=== PATIENT | female | born 1985 | race Caucasian/White ===

== ENCOUNTER 2016-09-21 08:04 | Emergency (ER) | payer OTHER ==
[2016-09-21 08:10] VITALS: BP 111/69; PULSE 75; TEMP 98.1; BMI 23.5
--- NOTE | 2016-09-21 08:33 | PDOC ---
History of Present Illness - General Chief Complaint: Cold Symptoms Stated Complaint: COLD, CHEST PAIN Time Seen by Provider: 09/21/16 08:29 History Source: Patient Exam Limitations: No Limitations - History of Present Illness Initial Comments: 09/21/16 08:29 CC 4 days of cough and nasal congesion; no fever Timing/Duration: reports: getting worse Severity: reports: mild Possible Cause: Yes: illness exposure Associated Symptoms: reports: cough, nasal congestion, nasal drainage Past History - Past Medical History Allergies/Adverse Reactions: Allergies Allergy/AdvReac Type Severity Reaction Status Date / Time No Known Drug Allergies Allergy Verified 09/21/16 08:07 Home Medications: Ambulatory Orders Benzonatate [Tessalon] 100 mg PO TID PRN #10 capsule 09/18/13 No Home Medications 0 dose .ROUTE UTDICT 09/18/13 Anemia: No Asthma: No Cancer: No Cardiac Disorders: No CVA: No COPD: No CHF: No Dementia: No Diabetes: No GI Disorders: No Disorders: No HTN: No Hypercholesterolemia: No Liver Disease: No Seizures: No Thyroid Disease: No - Surgical History Neurologic Surgery: No - Reproductive History (#): 4 Para: 3 Ectopic : Yes - Immunization History Immunization Up to Date: No (flu) - Psycho/Social/Smoking Cessation Hx Anxiety: No Suicidal Ideation: No Smoking Status: No Smoking History: Never smoked Have you smoked in the past 12 months: No Number of Cigarettes Smoked Daily: 0 Information on smoking cessation initiated: No Hx Alcohol Use: No Drug/Substance Use Hx: No Substance Use Type: None Hx Substance Use Treatment: No Review of Systems - Review of Systems Constitutional: No: Chills, Fever, Malaise HEENTM: Yes: Nose Pain, Nose Congestion Respiratory: No: Symptoms reported, Cough Cardiac (ROS): No: Symptoms Reported ABD/GI: No: Symptoms Reported, Constipated : No: Symptoms Reported, Dysuria, Hematuria Musculoskeletal: No: Symptoms Reported *Physical Exam - Vital Signs Last Vital Signs Temp Pulse Resp BP Pulse Ox 98.1 F 75 20 111/69 98 09/21/16 08:07 09/21/16 08:07 09/21/16 08:07 09/21/16 08:07 09/21/16 08:07 - Physical Exam General Appearance: Yes: Appropriately Dressed. No: Apparent Distress HEENT: positive: Tonsillar Exudate, Nasal Congestion, Rhinorrhea. negative: TMs Normal, Pharynx Normal, Tonsillar Erythema Neck: positive: Supple. negative: Tender, Rigid, Lymphadenopathy (R), Lymphadenopathy (L) Respiratory/Chest: negative: Chest Tender, Lungs Clear Medical Decision Making - Medical Decision Making 09/21/16 08:31 sinus infections, no fever *DC/Admit/Observation/Transfer Diagnosis at time of Disposition: Acute sinusitis Qualifiers: Sinusitis location: frontal Recurrence: non-recurrent Qualified Code(s): J01.10 - Acute frontal sinusitis, unspecified - Discharge Dispostion Disposition: HOME Condition at time of disposition: Stable Admit: No - Patient Instructions Additional Instructions: lots of fluids; return for increased symptoms; use nasal spray - Post Discharge Activity Work/School Note: Back to Work
[2016-09-21] MEDS ORDERED: IBUPROFEN 400 MG TABLET (FP) PO ONE (08:34)
== END 2016-09-21 08:44 | disposition home or self-care (01) ==
LOC: JERFT 08:04
DX: J01.10 Acute frontal sinusitis, unspecified (principal)
CPT/HCPCS: 99281-25

== ENCOUNTER 2018-01-29 07:47 | Emergency (ER) | payer OTHER ==
[2018-01-29 08:03] VITALS: BP 107/72; PULSE 78; TEMP 98.7; BMI 35.8
--- NOTE | 2018-01-29 08:25 | PDOC ---
History of Present Illness - General Chief Complaint: Pain Stated Complaint: SHOULDER PAIN Time Seen by Provider: 01/29/18 08:10 History Source: Patient Exam Limitations: No Limitations - History of Present Illness Initial Comments: 01/29/18 10:08 Patient states was at school feel day with daughter 3 days ago doing multiple activities including sac racing, and had a gradual onset of left shoulder pain. States has progressively worsened where now had difficulty sleeping last night secondary to stiffness and tenderness to upper shoulder and upper neck area. Denies numbness or tingling to hands or feet, no fevers, no palpitations chest pain or other. Has taken only Tylenol for pain relief. Occurred: reports: last week Severity: reports: mild, moderate Pain Location: reports: back Method of Injury: Yes: unknown Modifying Factors: improves with: None Loss of Consciousness: no loss of consciousness Associated Symptoms (Fall): denies symptoms Past History - Travel Traveled outside of the country in the last 30 days: No Close contact w/someone who was outside of country & ill: No - Past Medical History Allergies/Adverse Reactions: Allergies Allergy/AdvReac Type Severity Reaction Status Date / Time No Known Drug Allergies AdvReac Verified 01/29/18 12:13 NSAIDS AdvReac Uncoded 01/29/18 12:13 Home Medications: Ambulatory Orders Cyclobenzaprine HCl 10 mg PO Q8H PRN #14 tablet 01/29/18 Anemia: No Asthma: No Cancer: No Cardiac Disorders: No CVA: Yes (STROKE-2017, NO RESIDUAL) COPD: No CHF: No Dementia: No Diabetes: No GI Disorders: No Disorders: No HTN: No Hypercholesterolemia: No Liver Disease: No Seizures: No Thyroid Disease: No - Surgical History Neurologic Surgery: No - Reproductive History (#): 4 Para: 3 Ectopic : Yes - Immunization History Immunization Up to Date: No (flu) - Suicide/Smoking/Psychosocial Hx Smoking Status: No Smoking History: Never smoked Have you smoked in the past 12 months: No Number of Cigarettes Smoked Daily: 0 Hx Alcohol Use: No Drug/Substance Use Hx: No Substance Use Type: None Hx Substance Use Treatment: No Review of Systems - Review of Systems Able to Perform ROS?: Yes Is the patient limited [place]an proficient: Yes Constitutional: Yes: Symptoms Reported HEENTM: Yes: See HPI. No: Symptoms Reported Respiratory: Yes: See HPI. No: Symptoms reported, Cough Cardiac (ROS): No: Symptoms Reported ABD/GI: No: Symptoms Reported Musculoskeletal: Yes: Symptoms Reported, See HPI, Joint Pain, Muscle Pain, Muscle Weakness Integumentary: Yes: See HPI. No: Symptoms Reported, Bruising Neurological: No: Symptoms reported All Other Systems: Reviewed and Negative *Physical Exam - Vital Signs Last Vital Signs Temp Pulse Resp BP Pulse Ox 98.7 F 78 19 107/72 100 01/29/18 07:56 01/29/18 07:56 01/29/18 07:56 01/29/18 07:56 01/29/18 07:56 - Physical Exam General Appearance: Yes: Nourished, Appropriately Dressed, Apparent Distress, Mild Distress HEENT: positive: ANURADHA, Normal ENT Inspection, TMs Normal, Pharynx Normal Neck: positive: Supple Respiratory/Chest: positive: Lungs Clear, Normal Breath Sounds Gastrointestinal/Abdominal: positive: Soft. negative: Tender Musculoskeletal: positive: Normal Inspection, Muscle Spasm (palpable spasm noted to the paravertebral spinous muscles of left neck and cervical spine. Has no true neck tenderness, and range of motion is intact although movement right reproduces pain to her left shoulder area. Spasm is recreated with pressure points at the trapezius.). negative: Vertebral Tenderness Extremity: positive: Normal Capillary Refill, Normal Inspection. 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 *DC/Admit/Observation/Transfer Diagnosis at time of Disposition: Left shoulder strain Qualifiers: Encounter type: initial encounter Qualified Code(s): S46.912A - Strain of unspecified muscle, fascia and tendon at shoulder and upper arm level, left arm , initial encounter - Discharge Dispostion Disposition: HOME Condition at time of disposition: Stable Decision to Admit order: No - Prescriptions Prescriptions: Cyclobenzaprine HCl 10 mg PO Q8H PRN #14 tablet PRN Reason: spasm - Referrals Referrals: Christiano Sanchez [Primary Care Provider] - - Patient Instructions Printed Discharge Instructions: DI for Muscle Strain Additional Instructions: Rest, no heavy lifting or exercise until pain is resolved Hot soaks to neck and low back as often as possible/hot showers or Jacuzzis No massage or therapy until spasm is gone Continue Acetaminophen 500 mg tablet, 1 tablet every 8 hours for the next 3 days then as needed for pain and swelling Cyclobenzaprine 1-10mg every 8 hours as needed for spasm If not significant improvement within 24 hours with medication and rest regime, followup with private physician for change in medications and /or therapy. - Post Discharge Activity
== END 2018-01-29 08:53 | disposition home or self-care (01) ==
LOC: JERFT 07:47 → JER 07:47 → JERFT 08:53
DX: S46.812A Strain of other muscles, fascia and tendons at shoulder and upper arm level, left arm, initial encounter (principal); X50.9XXA Other and unspecified overexertion or strenuous movements or postures, initial encounter; Y93.6A Activity, physical games generally associated with school recess, summer camp and children; Y92.218 Other school as the place of occurrence of the external cause; Y99.8 Other external cause status; Z86.73 Personal history of transient ischemic attack (TIA), and cerebral infarction without residual deficits
CPT/HCPCS: 99281-25

== ENCOUNTER 2018-02-01 10:45 | Emergency (ER) | payer OTHER ==
[2018-02-01] MEDS ORDERED: SODIUM CHLORIDE 1,000 ML IV STA (11:21)
[2018-02-01 11:27] VITALS: TEMP 99; BMI 36.3
--- NOTE | 2018-02-01 11:33 | PDOC ---
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 Symptoms began as pt was sitting at the bus stop filling out a job application. Pt reports afterwards, she began to have palpitations, and felt like she could not catch her breath because she thought "something bad was going to happen" to her again. She then dialed 911 and began to feel tingling in her fingers and toes. Denies any chest pain or lower extremity edema. Patient reports taking her Eliquis this morning. Patient states she was recently in the ED on 01/29/18 for left shoulder pain, for which she was prescribed Flexeril. Patient states she last took Flexeril last night and motrin this morning with moderate relief. She states she felt "off" this morning, but otherwise had no symptoms. Pt denies abdominal pain, vomiting, diarrhea, or constipation. Denies focal weakness or numbness. Denies speech problems or visual symptoms. She denies any recent fever, chills, cough, headache, dizziness, or lightheadedness. Patient reports her symptoms are different from her previous CVA, as she does not have any changes in speech or vision. She denies any recent travel or sick contacts. Allergies: NKDA Past Surgical History: Brain clot removal Social History: Non smoker. No ETOH or recreational drug use, PCP: Dr. Sanchez Past History - Past Medical History Allergies/Adverse Reactions: Allergies Allergy/AdvReac Type Severity Reaction Status Date / Time No Known Drug Allergies AdvReac Verified 01/29/18 12:13 NSAIDS AdvReac Uncoded 01/29/18 12:13 Home Medications: Ambulatory Orders Cyclobenzaprine HCl 10 mg PO Q8H PRN #14 tablet 01/29/18 Apixaban [Eliquis] 5 mg PO BID 02/01/18 Anemia: No Asthma: No Cancer: No Cardiac Disorders: No CVA: Yes (06/2017) COPD: No CHF: No Dementia: No Diabetes: No GI Disorders: No Disorders: No HTN: No Hypercholesterolemia: No Liver Disease: No Seizures: No Thyroid Disease: No - Surgical History Neurologic Surgery: No - Reproductive History (#): 4 Para: 3 Ectopic : Yes - Immunization History Immunization Up to Date: No (flu) - Suicide/Smoking/Psychosocial Hx Smoking Status: No Smoking History: Never smoked Have you smoked in the past 12 months: No Number of Cigarettes Smoked Daily: 0 Information on smoking cessation initiated: No Hx Alcohol Use: No Drug/Substance Use Hx: No Substance Use Type: None Hx Substance Use Treatment: No Review of Systems - Review of Systems Comments:: 02/01/18 12:12 GENERAL/CONSTITUTIONAL: +heat flash. No fever or chills. No weakness. HEAD, EYES, EARS, NOSE AND THROAT: No change in vision. No ear pain or discharge. No sore throat. GASTROINTESTINAL: +Nausea. No vomiting, diarrhea or constipation. GENITOURINARY: No dysuria, frequency, or change in urination. CARDIOVASCULAR: +Shortness of breath, palpitations. No chest pain. RESPIRATORY: No cough, wheezing, or hemoptysis. MUSCULOSKELETAL: No joint or muscle swelling or pain. No neck or back pain. SKIN: No rash NEUROLOGIC: No headache, vertigo, loss of consciousness, or change in strength/ sensation. ENDOCRINE: No increased thirst. No abnormal weight change. HEMATOLOGIC/LYMPHATIC: No anemia, easy bleeding, or history of blood clots. ALLERGIC/IMMUNOLOGIC: No hives or skin allergy *Physical Exam - Vital Signs Last Vital Signs Temp Pulse Resp BP Pulse Ox 99 F 104 H 20 116/76 100 02/01/18 10:57 02/01/18 10:57 02/01/18 10:57 02/01/18 10:57 02/01/18 10:57 - Physical Exam Comments: 02/01/18 12:12 GENERAL: Awake, alert, and fully oriented, in no acute distress HEAD: No signs of trauma EYES: PERRLA, EOMI, sclera anicteric, conjunctiva clear ENT: Auricles normal inspection, hearing grossly normal, nares patent, oropharynx clear without exudates. Moist mucosa NECK: Normal ROM, supple, no lymphadenopathy, JVD, or masses LUNGS: Breath sounds equal, clear to auscultation bilaterally. No wheezes, and no crackles HEART: Regular rate and rhythm, normal S1 and S2, no murmurs, rubs or gallops ABDOMEN: Soft, nontender, normoactive bowel sounds. No guarding, no rebound. No masses EXTREMITIES: Normal range of motion, no edema. No clubbing or cyanosis. No cords, erythema, or tenderness NEUROLOGICAL: Normal speech, cranial nerves intact, negative pronator drift, 5/ 5 strength in all 4 extremities, normal sensation to light touch in all 4 extremities, normal cerebellar exam, normal gait, normal reflexes and tone SKIN: Warm, Dry, normal turgor, no rashes or lesions noted. Heart Score/ECG Review #1 02/01/18 12:13 Twelve-lead EKG was performed and reviewed by me. Normal sinus rhythm, rate 96. Normal axis and intervals. No ST elevations. Isolated T-wave inversion in lead 3. No significant change compared to EKG from July 2012 ED Treatment Course - LABORATORY CBC & Chemistry Diagram: 02/01/18 11:45 02/01/18 11:45 Medical Decision Making - Medical Decision Making 02/01/18 11:35 32-year-old female with a history of CVA in June 2017 with no residual symptoms now on xarelto for pAF presents to the emergency department with sensation of heat coming over her body, followed by nausea, palpitations and feeling that she can not catch her breath. No LOC. Initial vitals with tachycardia, on my exam, HR 94. Remainder of vitals wnl. Exam wnl, pt is neuro intact. EKG non ischemic. Story consistent with pre-syncopal episode. Pt has been taking flexeril for the past 2 days for L muscle pain (seen here), it is possible this is a medication side effect. Pt reports she feels better now, but admits to being anxious due to her previous stroke. 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 I answered all of the patient's questions. The patient was satisfied with the care received and felt comfortable with the discharge plan and treatment plan. The patient will call their primary care physician within 24 hours to arrange follow-up and will return to the Emergency Department with any new, persistent or worsening symptoms. *DC/Admit/Observation/Transfer Diagnosis at time of Disposition: Pre-syncope, Nausea, Palpitations - Discharge Dispostion Disposition: HOME Condition at time of disposition: Stable Decision to Admit order: No - Referrals Referrals: Christiano Sanchez [Primary Care Provider] - - Patient Instructions Printed Discharge Instructions: DI for Palpitations Additional Instructions: Follow-up with your primary care doctor tomorrow as scheduled. Do not take the muscle relaxer as it can have side effects that may have contributed to your symptoms today. Take tylenol as needed for pain. Return to the emergency department if you have any new, worsening or concerning symptoms. - Post Discharge Activity - Attestations Physician Attestion: 02/01/18 16:35 I, Dr. Jero Mckinley MD, attest that this document has been prepared under my direction and personally reviewed by me in its entirety. I further attest, that it accurately reflects all work, treatment, procedures and medical decision -making performed by me.
[2018-02-01 12:04] LABS: BASO % 0.6 % (0-2.0); EOS % 0.7 % (0-4.5); HEMATOCRIT 35.9 % (32.4-45.2); LYMPH % 33.5 % (8-40); MCHC 33.5 g/dl (32.0-36.0); MEAN CELL VOLUME 92.7 fl (80-96); MEAN PLT VOLUME 8.8 fl (7.5-11.1); MONO % 9.5 % (3.8-10.2); NEUT % 55.7 % (42.8-82.8); PLATELET COUNT 246 K/MM3 (134-434); RBC 3.87 M/mm3 (3.60-5.2); RDW 12.6 % (11.6-15.6)
[2018-02-01 12:27] LABS: ALBUMIN 3.7 g/dl (3.4-5.0); ANION GAP 6 (8-16); BILIRUBIN,TOTAL 0.3 mg/dL (0.2-1.0); BLOOD UREA NITROGEN 12 mg/dL (7-18); CALCIUM 8.7 mg/dL (8.5-10.1); CHLORIDE 103 mmol/L (98-107); CO2 28 mmol/L (21-32); CREATININE 0.9 mg/dL (0.55-1.02); GLUCOSE,RANDOM 82 mg/dL (74-106); MAGNESIUM 2.1 mg/dL (1.8-2.4); POTASSIUM 4.1 mmol/L (3.5-5.1); SGOT/AST 49 U/L (15-37); SODIUM 137 mmol/L (136-145); TOT PROT 8.1 g/dl (6.4-8.2)
[2018-02-01 12:35] LABS: ALK PHOS 108 U/L (45-117); SGPT/ALT 80 U/L (12-78)
[2018-02-01 15:50] VITALS: BP 113/67; PULSE 87
--- NOTE | 2018-02-02 13:29 | EKG ---
Test Reason : Blood Pressure : / mmHG Vent. Rate : 096 BPM Atrial Rate : 096 BPM P-R Int : 160 ms QRS Dur : 080 ms QT Int : 358 ms P-R-T Axes : 051 021 026 degrees QTc Int : 452 ms NORMAL SINUS RHYTHM NORMAL ECG WHEN COMPARED WITH ECG OF 13-JUL-2012 11:30, NONSPECIFIC T WAVE ABNORMALITY NOW EVIDENT IN ANTERIOR LEADS Confirmed by MAGUI MARQUES MD ([id number]) on 02/02/2018 1:29:24 PM Referred By: Confirmed By:MAGUI MARQUES MD
== END 2018-02-01 16:46 | disposition home or self-care (01) ==
LOC: JER 10:45
PROC: 3E0337Z Introduction of Electrolytic and Water Balance Substance into Peripheral Vein, Percutaneous Approach (ICD-10-PCS; principal; 2018-02-01)
DX: R55 Syncope and collapse (principal); R00.2 Palpitations; I48.0 Paroxysmal atrial fibrillation; Z79.01 Long term (current) use of anticoagulants
CPT/HCPCS: 36415; 71045-TC-FY; 80053; 83735; 84443; 84484; 84703; 85025; 93005; 93010; 99284-25; J7030

== ENCOUNTER 2018-02-02 10:53 | Emergency (ER) | payer OTHER ==
[2018-02-02 11:00] VITALS: BMI 36.0
[2018-02-02 12:30] VITALS: BP 116/76; PULSE 78; TEMP 98.2
[2018-02-02 12:33] LABS: BASO % 0.3 % (0-2.0); EOS % 0.5 % (0-4.5); HEMATOCRIT 36.3 % (32.4-45.2); HEMOGLOBIN 12.1 GM/dL (10.7-15.3); LYMPH % 24.3 % (8-40); MCHC 33.5 g/dl (32.0-36.0); MEAN CELL VOLUME 92.7 fl (80-96); MEAN PLT VOLUME 8.7 fl (7.5-11.1); MONO % 7.8 % (3.8-10.2); NEUT % 67.1 % (42.8-82.8); PLATELET COUNT 239 K/MM3 (134-434); RBC 3.91 M/mm3 (3.60-5.2); RDW 12.4 % (11.6-15.6); WHITE BLOOD COUNT 5.4 K/mm3 (4.0-10.0)
[2018-02-02 13:06] LABS: ALBUMIN 3.7 g/dl (3.4-5.0); ANION GAP 9 (8-16); BILIRUBIN,TOTAL 0.3 mg/dL (0.2-1.0); BLOOD UREA NITROGEN 10 mg/dL (7-18); CALCIUM 9.3 mg/dL (8.5-10.1); CHLORIDE 103 mmol/L (98-107); CO2 27 mmol/L (21-32); CREATININE 0.8 mg/dL (0.55-1.02); GLUCOSE,RANDOM 68 mg/dL (74-106); POTASSIUM 4.2 mmol/L (3.5-5.1); SGOT/AST 43 U/L (15-37); SGPT/ALT 77 U/L (12-78); SODIUM 139 mmol/L (136-145)
[2018-02-02 13:09] LABS: ALK PHOS 106 U/L (45-117)
--- NOTE | 2018-02-02 13:28 | PDOC ---
History of Present Illness - General Chief Complaint: Palpitations Stated Complaint: REVISIT/ PALPITATIONS Time Seen by Provider: 02/02/18 11:22 History Source: Patient Exam Limitations: No Limitations - History of Present Illness Initial Comments: 02/02/18 11:22 32-year-old female presents to ED with sudden onset of palpitations accompanied with mild shortness of breath that lasted about 2 minutes. Patient was taking about all of thing she had today when symptoms began and denies any exertion prior to the onset. Patient denies history of anxiety, drug use, alcohol use but does state recent stressors starting a new job tomorrow. Patient was seen here yesterday for the same and had a workup which she states was normal. Patient is currently asymptomatic upon arrival but feels generally fatigued. Presenting Symptoms: Other Timing/Duration: reports: resolved prior to arrival Severity/Quality: reports: mild Activities at Onset: reports: none Nitro Today/Relief: Yes: no nitro taken today Aspirin Received prior to arrival (Core Measure): Yes: no aspirin today Associated Symptoms: Yes: Palpitations Past History - Travel Traveled outside of the country in the last 30 days: No - Past Medical History Allergies/Adverse Reactions: Allergies Allergy/AdvReac Type Severity Reaction Status Date / Time No Known Drug Allergies AdvReac Verified 01/29/18 12:13 Home Medications: Ambulatory Orders Cyclobenzaprine HCl 10 mg PO Q8H PRN #14 tablet 01/29/18 Apixaban [Eliquis] 5 mg PO BID 02/01/18 Anemia: No Asthma: No Cancer: No Cardiac Disorders: No CVA: Yes (06/2017) COPD: No CHF: No DVT: No Dementia: No Diabetes: No GI Disorders: No Disorders: No HTN: No Hypercholesterolemia: No Liver Disease: No Seizures: No Thyroid Disease: No - Surgical History Neurologic Surgery: No - Reproductive History (#): 4 Para: 3 Ectopic : Yes - Immunization History Immunization Up to Date: No (flu) - Suicide/Smoking/Psychosocial Hx Smoking Status: No Smoking History: Never smoked Have you smoked in the past 12 months: No Number of Cigarettes Smoked Daily: 0 Information on smoking cessation initiated: No Hx Alcohol Use: No Drug/Substance Use Hx: No Substance Use Type: None Hx Substance Use Treatment: No Patient Lives Alone: No Cardiac Specific PMH - Complaint Specific PMHX Pacemaker: No Review of Systems - Review of Systems Able to Perform ROS?: No Constitutional: Yes: Loss of Appetite, Malaise HEENTM: No: Symptoms Reported Respiratory: Yes: Shortness of Breath Cardiac (ROS): Yes: Palpitations ABD/GI: No: Symptoms Reported : No: Symptoms Reported Musculoskeletal: No: Symptoms Reported Integumentary: No: Symptoms Reported Neurological: No: Symptoms reported Hematologic/Lymphatic: No: Symptoms Reported *Physical Exam - Vital Signs Last Vital Signs Temp Pulse Resp BP Pulse Ox 98.2 F 78 18 116/76 100 02/02/18 12:28 02/02/18 12:28 02/02/18 12:28 02/02/18 12:28 02/02/18 12:28 - Physical Exam General Appearance: Yes: Nourished, Appropriately Dressed. No: Apparent Distress HEENT: positive: EOMI, ANURADHA, TMs Normal, Pharynx Normal (dry). negative: Pale Conjunctivae Neck: positive: Normal Thyroid, Supple Respiratory/Chest: positive: Lungs Clear, Normal Breath Sounds. negative: Respiratory Distress, Accessory Muscle Use Cardiovascular: positive: Regular Rhythm, Regular Rate. negative: Murmur Gastrointestinal/Abdominal: positive: Soft. negative: Tenderness Extremity: positive: Normal Capillary Refill. negative: Pedal Edema Integumentary: positive: Normal Color, Warm, Moist Neurologic: positive: Normal Mood/Affect, Motor Strength 5/5 (ambulatory) Heart Score/ECG Review - History History: Slightly suspicious - Electrocardiogram EKG: Normal - Age Age: </= 45 - Risk Factors Based on the list above the patient has:: No risk factors known - Troponin Troponin: </= normal limit - Score Heart Score - Total: 0 - ECG Intrepretation Rhythm: Regular Rhythm (rate 81. nsr. intervals reg. no st depression or elevation) ED Treatment Course - LABORATORY CBC & Chemistry Diagram: 02/02/18 12:20 02/02/18 12:20 - ADDITIONAL ORDERS Additional order review: Laboratory Results 02/02/18 12:20 Sodium 139 Potassium 4.2 Chloride 103 Carbon Dioxide 27 Anion Gap 9 BUN 10 Creatinine 0.8 Creat Clearance w eGFR > 60 Random Glucose 68 L Calcium 9.3 Total Bilirubin 0.3 AST 43 H ALT 77 Alkaline Phosphatase 106 Creatine Kinase 131 Troponin I < 0.02 Total Protein 8.0 Albumin 3.7 02/02/18 12:20 RBC 3.91 MCV 92.7 MCHC 33.5 RDW 12.4 MPV 8.7 Neutrophils % 67.1 D Lymphocytes % 24.3 D Monocytes % 7.8 Eosinophils % 0.5 Basophils % 0.3 Medical Decision Making - Medical Decision Making 02/02/18 11:28 She here for episodic palpitations shortness of breath after feeling anxious. Patient states symptoms resolved within minutes with no other complaints physically. Patient came to the ER because she did not know what to do although she was seen here yesterday for similar complaints. Patient's EKG completed in triage. Patient was ordered for CBC and comp. 02/02/18 13:10 Patient remains asymptomatic. Patient with borderline low glucose. Patient given lunch tray. 02/02/18 13:31 Laboratory Tests 02/02/18 02/02/18 12:20 12:20 WBC 5.4 D Hgb 12.1 Hct 36.3 Plt Count 239 Neutrophils % 67.1 D Sodium 139 Potassium 4.2 Chloride 103 Carbon Dioxide 27 Anion Gap 9 BUN 10 Creatinine 0.8 Creat Clearance w eGFR > 60 Random Glucose 68 L Calcium 9.3 Total Bilirubin 0.3 AST 43 H ALT 77 Creatine Kinase 131 Troponin I < 0.02 *DC/Admit/Observation/Transfer Diagnosis at time of Disposition: Palpitations, Anxiety - Discharge Dispostion Disposition: HOME Condition at time of disposition: Good - Referrals Referrals: Christiano Sanchez [Primary Care Provider] - - Patient Instructions Printed Discharge Instructions: Anxiety and Panic Attacks (Alternative Therapy) , DI for Anxiety -- Adult Additional Instructions: At this time I recommend try relaxation techniques, such as music, yoga and /or breathing in a brown paper bag with slow deep breaths. I also recommended to go in front of the fan and take low deep breaths. - Post Discharge Activity
--- NOTE | 2018-02-02 13:29 | EKG ---
Test Reason : Blood Pressure : / mmHG Vent. Rate : 081 BPM Atrial Rate : 081 BPM P-R Int : 148 ms QRS Dur : 088 ms QT Int : 368 ms P-R-T Axes : 057 015 022 degrees QTc Int : 427 ms NORMAL SINUS RHYTHM CANNOT RULE OUT ANTERIOR INFARCT , AGE UNDETERMINED ABNORMAL ECG WHEN COMPARED WITH ECG OF 01-FEB-2018 10:52, NO SIGNIFICANT CHANGE WAS FOUND Confirmed by MAGUI MARQUES MD ([id number]) on 02/02/2018 1:28:51 PM Referred By: Confirmed By:MAGUI MARQUES MD
== END 2018-02-02 13:59 | disposition home or self-care (01) ==
LOC: JER 10:53
DX: F41.9 Anxiety disorder, unspecified (principal); R00.2 Palpitations; Z86.73 Personal history of transient ischemic attack (TIA), and cerebral infarction without residual deficits; I48.0 Paroxysmal atrial fibrillation; Z79.01 Long term (current) use of anticoagulants
CPT/HCPCS: 36415; 80053; 82550; 84484; 85025; 93005; 93010; 99284-25

== ENCOUNTER 2018-05-21 06:49 | Emergency (ER) | payer OTHER ==
[2018-05-21 06:58] VITALS: BP 115/70; PULSE 88; TEMP 98.5; BMI 39.4
--- NOTE | 2018-05-21 07:10 | PDOC ---
History of Present Illness - General Chief Complaint: Sore Throat Stated Complaint: THROAT PAIN Time Seen by Provider: 05/21/18 07:09 Past History - Past Medical History Allergies/Adverse Reactions: Allergies Allergy/AdvReac Type Severity Reaction Status Date / Time No Known Drug Allergies AdvReac Verified 05/21/18 06:56 Home Medications: Ambulatory Orders Cyclobenzaprine HCl 10 mg PO Q8H PRN #14 tablet 01/29/18 Apixaban [Eliquis] 5 mg PO BID 02/01/18 Anemia: No Asthma: No Cancer: No Cardiac Disorders: No CVA: Yes (06/2017) COPD: No CHF: No DVT: No Dementia: No Diabetes: No GI Disorders: No Disorders: No HTN: No Hypercholesterolemia: No Liver Disease: No Seizures: No Thyroid Disease: No - Surgical History Neurologic Surgery: No - Reproductive History (#): 4 Para: 3 Ectopic : Yes - Immunization History Immunization Up to Date: No (flu) - Suicide/Smoking/Psychosocial Hx Smoking Status: No Smoking History: Never smoked Have you smoked in the past 12 months: No Number of Cigarettes Smoked Daily: 0 Information on smoking cessation initiated: No Hx Alcohol Use: No Drug/Substance Use Hx: No Substance Use Type: None Hx Substance Use Treatment: No *Physical Exam - Vital Signs Last Vital Signs Temp Pulse Resp BP Pulse Ox 98.5 F 88 20 115/70 99 05/21/18 06:56 05/21/18 06:56 05/21/18 06:56 05/21/18 06:56 05/21/18 06:56 *DC/Admit/Observation/Transfer - Referrals Referrals: Christiano Sanchez [Primary Care Provider] - - Patient Instructions - Post Discharge Activity
--- NOTE | 2018-05-21 07:39 | PDOC ---
History of Present Illness - General Chief Complaint: Sore Throat Stated Complaint: THROAT PAIN Time Seen by Provider: 05/21/18 07:09 - History of Present Illness Initial Comments: 32 year old female with PMH of CVA ( 1 year prior currently on Eliquis) presenting with right sided neck pain radiating to her jaw along with difficulty / pain with swallowing for the past two days. Denies fevers, chills, nausea, vomiting, diarrhea, sick contacts, recent travel, or other symptoms. She has not tried any OTC pain relievers or anti-inflammatory medications. 05/21/18 07:29 Past History - Past Medical History Allergies/Adverse Reactions: Allergies Allergy/AdvReac Type Severity Reaction Status Date / Time No Known Drug Allergies AdvReac Verified 05/21/18 06:56 Home Medications: Ambulatory Orders Cyclobenzaprine HCl 10 mg PO Q8H PRN #14 tablet 01/29/18 Apixaban [Eliquis] 5 mg PO BID 02/01/18 Amoxicillin - [Amoxicillin 500mg Capsule -] 1,000 mg PO DAILY 10 Days #20 capsule 05/21/18 Anemia: No Asthma: No Cancer: No Cardiac Disorders: No CVA: Yes (06/2017) COPD: No CHF: No DVT: No Dementia: No Diabetes: No GI Disorders: No Disorders: No HTN: No Hypercholesterolemia: No Liver Disease: No Seizures: No Thyroid Disease: No - Surgical History Neurologic Surgery: No - Reproductive History (#): 4 Para: 3 Ectopic : Yes - Immunization History Immunization Up to Date: No (flu) - Suicide/Smoking/Psychosocial Hx Smoking Status: No Smoking History: Never smoked Have you smoked in the past 12 months: No Number of Cigarettes Smoked Daily: 0 Information on smoking cessation initiated: No Hx Alcohol Use: No Drug/Substance Use Hx: No Substance Use Type: None Hx Substance Use Treatment: No Review of Systems - Review of Systems Constitutional: No: Chills, Diaphoresis, Fever, Loss of Appetite HEENTM: Yes: Nose Congestion, Throat Pain. No: Blurred Vision, Tearing, Hearing Loss Respiratory: No: Cough, Shortness of Breath, Stridor, Wheezing Cardiac (ROS): No: Chest Pain, Edema, Irregular Heart Rate, Syncope ABD/GI: No: Diarrhea, Nausea, Vomiting : No: Dysuria, Discharge, Frequency Integumentary: No: Erythema, Lesions, Lumps, Pallor Neurological: No: Headache, Numbness Psychiatric: No: Anxiety, Depression Endocrine: No: Increased Hunger, Increased Thirst, Increased Urine Hematologic/Lymphatic: Yes: Blood Clots. No: Anemia, Easy Bleeding *Physical Exam - Vital Signs Last Vital Signs Temp Pulse Resp BP Pulse Ox 98.5 F 88 20 115/70 99 05/21/18 06:56 05/21/18 06:56 05/21/18 06:56 05/21/18 06:56 05/21/18 06:56 - Physical Exam General Appearance: Yes: Nourished, Appropriately Dressed. No: Apparent Distress HEENT: positive: EOMI, ANURADHA. negative: Normal ENT Inspection (erythmatoous posterior oropharynx) Neck: positive: Tender (slightly tender right neck without sweling or obvious deformity), Trachea midline, Normal Thyroid, Supple. negative: Rigid Respiratory/Chest: positive: Lungs Clear, Normal Breath Sounds. negative: Chest Tender, Respiratory Distress, Accessory Muscle Use Cardiovascular: positive: Regular Rhythm, Regular Rate Gastrointestinal/Abdominal: positive: Normal Bowel Sounds, Flat, Soft. negative : Tender Musculoskeletal: positive: Normal Inspection. negative: Decreased Range of Motion Extremity: positive: Normal Capillary Refill, Normal Inspection, Normal Range of Motion. negative: Tender Integumentary: positive: Normal Color, Dry, Warm Neurologic: positive: Fully Oriented, Alert, Normal Mood/Affect, Normal Response , Motor Strength 5/5 Medical Decision Making - Medical Decision Making 32 year old female with PMH of CVa presentign with throat soreness and pain for the past 3 days. Erythematous osterio oropharynx, without asymmetric swelling, without exudate, afebrile, and no cough. Very low Centor score of 2 but will send RST and prescribe amoxicillin. Patient deferred Tylenol and cannot take NSAIDs. 05/21/18 07:41 RST negative, sent with antibiotics prophylactically with instructions to fill. Given one dose of dexamethasone 10 MG ands sent home with return precautions and follow up instructions. 05/21/18 08:28 *DC/Admit/Observation/Transfer Diagnosis at time of Disposition: Pharyngitis Qualifiers: Pharyngitis/tonsillitis etiology: unspecified etiology Qualified Code(s): J02.9 - Acute pharyngitis, unspecified - Discharge Dispostion Disposition: HOME Condition at time of disposition: Improved Decision to Admit order: No - Prescriptions Prescriptions: Amoxicillin - [Amoxicillin 500mg Capsule -] 1,000 mg PO DAILY 10 Days #20 capsule - Referrals Referrals: Christiano Sanchez [Primary Care Provider] - - Patient Instructions Printed Discharge Instructions: DI for Pharyngitis/Tonsillopharyngitis -- Adult Additional Instructions: Please take your antibiotics as prescribed, please follow up with your primary care physician within three days. Avoid very cold, very hot, or hard foods. Please return to the ED if you have new or worsening symptoms. - Post Discharge Activity
--- NOTE | 2018-05-21 08:01 | PDOC ---
Attending Attestation - Resident Resident Name: Kandis Dsouza - ED Attending Attestation I have performed the following: I have examined & evaluated the patient, The case was reviewed & discussed with the resident, I agree w/resident's findings & plan, Exceptions are as noted - HPI HPI: 05/21/18 07:56 32-year-old female history of stroke on eliquis, depression, hx of elevated LFTs presents with sore throat mating to right ear. Patient reports 4 days of symptoms. Denies sick contacts or recent travels. Denies fevers or chills. Reports difficulty swallowing but otherwise been completely. Patient has not taken any medications for pain. - Physicial Exam PE: 05/21/18 07:58 GENERAL: Awake, alert, and fully oriented, in no acute distress HEAD: No signs of trauma EYES: PERRLA, EOMI, sclera anicteric, conjunctiva clear ENT: Auricles normal inspection, hearing grossly normal, nares patent, oropharynx clear with bilateral tonsilar erythema and swelling, but no evidence of peritonsillar abscess. No obvious exudates . Moist mucosa NECK: Normal ROM, supple, no lymphadenopathy, JVD, or masses EXTREMITIES: Normal range of motion, no edema. No clubbing or cyanosis. No cords, erythema, or tenderness NEUROLOGICAL: Cranial nerves II through XII grossly intact. Normal speech, normal gait SKIN: Warm, Dry, normal turgor, no rashes or lesions noted. - Medical Decision Making 05/21/18 08:01 Vital Signs Temp Pulse Resp BP Pulse Ox 98.5 F 88 20 115/70 99 05/21/18 06:56 05/21/18 06:56 05/21/18 06:56 05/21/18 06:56 05/21/18 06:56 Impression: Tonsilarpharyngitis. Differential includes viral vs. strep. Rapid strep, pain control and reassess. 05/21/18 08:26 Rapid strep test negative. However, given appearance of throat, will treat empirically with amoxicilin and follow up with PMD. Pt is nontoxic appearing and breathing comfortably.
[2018-05-21] MEDS ORDERED: DEXAMETHASONE 4 MG TABLET (FP) PO ONE (08:27)
== END 2018-05-21 09:11 | disposition home or self-care (01) ==
LOC: JER 06:49
DX: J02.9 Acute pharyngitis, unspecified (principal); Z86.73 Personal history of transient ischemic attack (TIA), and cerebral infarction without residual deficits
CPT/HCPCS: 87070; 87186; 87430; 99282-25

== ENCOUNTER 2018-08-02 10:13 | Emergency (ER) | payer OTHER ==
[2018-08-02 10:43] VITALS: BP 113/66; PULSE 89; BMI 34.4
[2018-08-02] MEDS ORDERED: clonazePAM 0.5 MG TABLET PO ONE (12:01)
--- NOTE | 2018-08-02 12:21 | PDOC ---
History of Present Illness <Laura Romo Nicolas - Last Filed: 08/02/18 13:40> - General History Source: Patient <Marleni Penny - Last Filed: 08/02/18 14:31> - General Chief Complaint: Psychiatric Stated Complaint: PANIC ATTACK Time Seen by Provider: 08/02/18 11:36 Past History <Laura Romo Nicolas - Last Filed: 08/02/18 13:40> - Past Medical History Anemia: No Asthma: No Cancer: No Cardiac Disorders: No CVA: Yes (06/2017) COPD: No CHF: No DVT: No Dementia: No Diabetes: No GI Disorders: No Disorders: No HTN: No Hypercholesterolemia: No Liver Disease: No Seizures: No Thyroid Disease: No - Surgical History Appendectomy: No Cholecystectomy: No Neurologic Surgery: No - Reproductive History (#): 4 Para: 3 Ectopic : Yes - Immunization History Immunization Up to Date: No (flu) - Suicide/Smoking/Psychosocial Hx Smoking Status: No Smoking History: Never smoked Have you smoked in the past 12 months: No Number of Cigarettes Smoked Daily: 0 Information on smoking cessation initiated: No Hx Alcohol Use: No Drug/Substance Use Hx: No Substance Use Type: None Hx Substance Use Treatment: No <Marleni Penny - Last Filed: 08/02/18 14:31> - Past Medical History Allergies/Adverse Reactions: Allergies Allergy/AdvReac Type Severity Reaction Status Date / Time No Known Drug Allergies AdvReac Verified 05/21/18 06:56 Home Medications: Ambulatory Orders Cyclobenzaprine HCl 10 mg PO Q8H PRN #14 tablet 01/29/18 Apixaban [Eliquis] 5 mg PO BID 02/01/18 Amoxicillin - [Amoxicillin 500mg Capsule -] 1,000 mg PO DAILY 10 Days #20 capsule 05/21/18 Cephalexin [Keflex] 500 mg PO BID #14 capsule 05/24/18 clonazePAM [Klonopin -] 0.25 mg PO BID #6 tablet MDD 2 doses 08/02/18 *Physical Exam - Vital Signs Last Vital Signs Temp Pulse Resp BP Pulse Ox 89 17 113/66 100 08/02/18 10:41 08/02/18 10:41 08/02/18 10:41 08/02/18 10:41 <Laura Romo - Last Filed: 08/02/18 13:40> - Vital Signs Last Vital Signs Temp Pulse Resp BP Pulse Ox 89 17 113/66 100 08/02/18 10:41 08/02/18 10:41 08/02/18 10:41 08/02/18 10:41 <Marleni Penny - Last Filed: 08/02/18 14:31> Moderate Sedation - Procedure Monitoring Vital Signs: Procedure Monitoring Vital Signs Temperature Pulse Rate 89 08/02/18 10:41 Respiratory Rate 17 08/02/18 10:41 Blood Pressure 113/66 08/02/18 10:41 O2 Sat by Pulse Oximetry (%) 100 08/02/18 10:41 <Laura Romo - Last Filed: 08/02/18 13:40> - Procedure Monitoring Vital Signs: Procedure Monitoring Vital Signs Temperature Pulse Rate 89 08/02/18 10:41 Respiratory Rate 17 08/02/18 10:41 Blood Pressure 113/66 08/02/18 10:41 O2 Sat by Pulse Oximetry (%) 100 08/02/18 10:41 <Marleni Penny - Last Filed: 08/02/18 14:31> ED Treatment Course - LABORATORY CBC & Chemistry Diagram: 08/02/18 12:16 08/02/18 12:16 - ADDITIONAL ORDERS Additional order review: 08/02/18 12:16 RBC 3.98 MCV 91.4 MCHC 35.1 RDW 13.6 MPV 9.0 Neutrophils % 53.2 D Lymphocytes % 35.7 D Monocytes % 7.9 Eosinophils % 2.8 D Basophils % 0.4 - Medications Given in the ED: ED Medications Discontinued Medications Generic Name Dose Route Start Last Admin Trade Name Freq PRN Reason Stop Dose Admin Clonazepam 0.5 mg 08/02/18 12:01 08/02/18 12:28 Klonopin - PO 08/02/18 12:02 0.5 mg ONCE ONE Administration <Laura Romo - Last Filed: 08/02/18 13:40> - LABORATORY CBC & Chemistry Diagram: 08/02/18 12:16 08/02/18 12:16 - RADIOLOGY Radiology Studies Ordered: Category Date Time Status HEAD CT WITHOUT CONTRAST [CT] Stat CT Scan 08/02/18 12:02 Ordered <Marleni Penny - Last Filed: 08/02/18 14:31> Medical Decision Making - Medical Decision Making The patient was seen and evaluated in conjunction with midlevel provider under my direct supervision, ancillary studies were reviewed. I agree with the plan as outlined by PRINCESS Penny. HPI as outlined. labs and lytes normal, preg test neg CT head unremarkable, no wet press tender pathology. 08/02/18 12:59 08/02/18 13:40 <Laura Romolouis - Last Filed: 08/02/18 13:40> - Medical Decision Making 08/02/18 12:22 33-year-old female, history of CVA 1 year ago (? 2/2 control per pt), on Eliquis, anemia on iron, depression, on nortriptyline here with anxiety. Patient states since yesterday she has felt very anxious and had a panic attack last night. At some point developed her usual depressive symptoms which she describes as "being very sad and low" w/ frequent crying spells. States today she had to force herself to get out of bed today. No SI/HI. Patient states she is currently being weaned off of her nortriptyline. States at 20-25 mg she did well with no depressive or anxiety symptoms, but since she has been on 10 mg , which she is on now, symptoms have gradually gotten worse. Follows up with neurologist in [place]. States she called neurologist today and was told to c/o to ED for CTH as pt also reported vague PRINCE yesterday, no dizziness, visual changes, slurred speech or focal weakness See exam Anxiety/depression M/l 2/2 weaning off antidepressant No SI/HI Teary in ED -dose of benzo and reassess -CTH as per referring neuro 08/02/18 14:[address] normal. On reassessment, patient states Klonopin significantly improved her symptoms and now feels like herself. Currently smiling and talking to family on her cell phone. Case discussed with Dr. Fernandez, patient' s neurologist, who states patient can titrate nortiptyline back up to 20 mg and call her psychiatrist in the a.m. to discuss further management. Patient okay with plan and feels safe going home. No SI, HI. Discharged w/ sister <Marleni Penny - Last Filed: 08/02/18 14:31> *DC/Admit/Observation/Transfer <Laura Romo - Last Filed: 08/02/18 13:40> <Marleni Penny - Last Filed: 08/02/18 14:31> Diagnosis at time of Disposition: Anxiety - Discharge Dispostion Disposition: HOME Condition at time of disposition: Improved - Prescriptions Prescriptions: clonazePAM [Klonopin -] 0.25 mg PO BID #6 tablet MDD 2 doses - Referrals Referrals: Samuel Recio [Primary Care Provider] - - Patient Instructions Printed Discharge Instructions: DI for Anxiety -- Adult Additional Instructions: Your CT scan and labs were normal Please increase your nortriptyline to 20mg and contact your psychiatrist tomorrow to discuss further management of your anxiety/depression In the meantime take klonopin as needed - Post Discharge Activity
[2018-08-02] MEDS ORDERED: clonazePAM 0.5 MG TABLET ONE (12:26)
[2018-08-02 12:45] LABS: BASO % 0.4 % (0-2.0); EOS % 2.8 % (0-4.5); HEMATOCRIT 36.4 % (32.4-45.2); HEMOGLOBIN 12.8 GM/dL (10.7-15.3); LYMPH % 35.7 % (8-40); MCHC 35.1 g/dl (32.0-36.0); MEAN CELL VOLUME 91.4 fl (80-96); MONO % 7.9 % (3.8-10.2); NEUT % 53.2 % (42.8-82.8); PLATELET COUNT 261 K/MM3 (134-434); RBC 3.98 M/mm3 (3.60-5.2); RDW 13.6 % (11.6-15.6); WHITE BLOOD COUNT 4.6 K/mm3 (4.0-10.0)
[2018-08-02 13:07] LABS: ALBUMIN 3.9 g/dl (3.4-5.0); ALK PHOS 103 U/L (45-117); ANION GAP 7 MMOL/L (8-16); BILIRUBIN,TOTAL 0.3 mg/dL (0.2-1); BLOOD UREA NITROGEN 9 mg/dL (7-18); CALCIUM 8.7 mg/dL (8.5-10.1); CHLORIDE 106 mmol/L (98-107); CO2 26 mmol/L (21-32); CREATININE 0.7 mg/dL (0.55-1.3); GLUCOSE,RANDOM 80 mg/dL (74-106); POTASSIUM 4.1 mmol/L (3.5-5.1); SGOT/AST 19 U/L (15-37); SGPT/ALT 28 U/L (13-61); SODIUM 138 mmol/L (136-145); TOT PROT 8.2 g/dl (6.4-8.2)
== END 2018-08-02 14:37 | disposition home or self-care (01) ==
LOC: JER 10:13
DX: F41.9 Anxiety disorder, unspecified (principal)
CPT/HCPCS: 36415; 70450-TC; 80053; 84703; 85025; 99282-25

== ENCOUNTER 2018-10-30 14:27 | Emergency (ER) | payer OTHER ==
[2018-10-30 14:45] VITALS: BP 124/83; PULSE 84; TEMP 98.4; BMI 38.0
[2018-10-30] MEDS ORDERED: METOCLOPRAMIDE HCL INJECTION 10 MG/2 ML VIAL IVPUSH ONE (15:31)
[2018-10-30] MEDS ORDERED: ACETAMINOPHEN 1000 MG/100 ML VIAL (NON FORMULARY) IVPB ONE (15:31)
[2018-10-30] MEDS ORDERED: SODIUM CHLORIDE 1,000 ML IV STA (15:31)
[2018-10-30] MEDS ORDERED: ACETAMINOPHEN INJECTION 100 ML IVPB ONE (16:13)
[2018-10-30] MEDS ORDERED: METOCLOPRAMIDE HCL INJECTION 10 MG/2 ML VIAL ONE (16:13)
--- NOTE | 2018-10-30 16:28 | PDOC ---
History of Present Illness - General Chief Complaint: Lightheaded Stated Complaint: DIZZY/HEADACHE Time Seen by Provider: 10/30/18 15:20 History Source: Patient Exam Limitations: No Limitations - History of Present Illness Initial Comments: 10/30/18 16:22 Patient is a 33F with a history of a posterior stroke s/p thrombectomy ( possible causes include smoking, ocp, afib), on eliquis, anxiety, chronic headaches here today complaining of a headache for the past two weeks. She describes a headache worse in the front radiating to the neck. Patient denies vision changes, neck stiffness, nausea, vomiting. Headache waxes and wanes gradually. Denies fevers, chills. Patient sees Dr Fernandez for headaches. Past History - Past Medical History Allergies/Adverse Reactions: Allergies Allergy/AdvReac Type Severity Reaction Status Date / Time No Known Drug Allergies AdvReac Verified 05/21/18 06:56 Home Medications: Ambulatory Orders Cyclobenzaprine HCl 10 mg PO Q8H PRN #14 tablet 01/29/18 Apixaban [Eliquis] 5 mg PO BID 02/01/18 Amoxicillin - [Amoxicillin 500mg Capsule -] 1,000 mg PO DAILY 10 Days #20 capsule 05/21/18 Cephalexin [Keflex] 500 mg PO BID #14 capsule 05/24/18 clonazePAM [Klonopin -] 0.25 mg PO BID #6 tablet MDD 2 doses 08/02/18 Anemia: No Asthma: No Cancer: No Cardiac Disorders: No CVA: Yes (06/2017) COPD: No CHF: No DVT: No Dementia: No Diabetes: No GI Disorders: No Disorders: No HTN: No Hypercholesterolemia: No Liver Disease: No Seizures: No Thyroid Disease: No - Surgical History Appendectomy: No Cholecystectomy: No Neurologic Surgery: No - Reproductive History (#): 4 Para: 3 Ectopic : Yes - Immunization History Immunization Up to Date: No (flu) - Suicide/Smoking/Psychosocial Hx Smoking Status: No Smoking History: Never smoked Have you smoked in the past 12 months: No Number of Cigarettes Smoked Daily: 0 Information on smoking cessation initiated: No Hx Alcohol Use: No Drug/Substance Use Hx: No Substance Use Type: None Hx Substance Use Treatment: No Review of Systems - Review of Systems Comments:: 10/30/18 16:28 GENERAL/CONSTITUTIONAL: No fever or chills. No weakness. HEAD, EYES, EARS, NOSE AND THROAT: No change in vision. No sore throat. CARDIOVASCULAR: No chest pain or shortness of breath RESPIRATORY: No cough, wheezing, or hemoptysis. GASTROINTESTINAL: No nausea, vomiting, diarrhea or constipation. GENITOURINARY: No dysuria, frequency, or change in urination. MUSCULOSKELETAL: No joint or muscle swelling or pain. No neck or back pain. SKIN: No rash NEUROLOGIC: +headache, no vertigo, loss of consciousness, or change in strength/ sensation. ENDOCRINE: No increased thirst. No abnormal weight change HEMATOLOGIC/LYMPHATIC: No anemia, easy bleeding, or history of blood clots. ALLERGIC/IMMUNOLOGIC: No hives or skin allergy. *Physical Exam - Vital Signs Last Vital Signs Temp Pulse Resp BP Pulse Ox 98.4 F 84 18 124/83 100 10/30/18 14:42 10/30/18 14:42 10/30/18 14:42 10/30/18 14:42 10/30/18 14:42 - Physical Exam Comments: 10/30/18 16:30 GENERAL: Awake, alert, and fully oriented, in no acute distress HEAD: No signs of trauma, normocephalic, atraumatic EYES: PERRLA, EOMI, sclera anicteric, conjunctiva clear ENT: Auricles normal inspection, hearing grossly normal, nares patent, oropharynx clear without exudates. Moist mucosa NECK: Normal ROM, supple, no lymphadenopathy, JVD, or masses LUNGS: No distress, speaks full sentences, clear to auscultation bilaterally HEART: Regular rate and rhythm, normal S1 and S2, no murmurs, rubs or gallops, peripheral pulses normal and equal bilaterally. ABDOMEN: Soft, nontender, normoactive bowel sounds. No guarding, no rebound. No masses EXTREMITIES: Normal inspection, Normal range of motion, no edema. No clubbing or cyanosis. NEUROLOGICAL: Cranial nerves II through XII grossly intact. Normal speech, normal gait, no focal sensorimotor deficits SKIN: Warm, Dry, normal turgor, no rashes or lesions noted. Moderate Sedation - Procedure Monitoring Vital Signs: Procedure Monitoring Vital Signs Temperature 98.4 F 10/30/18 14:42 Pulse Rate 84 10/30/18 14:42 Respiratory Rate 18 10/30/18 14:42 Blood Pressure 124/83 10/30/18 14:42 O2 Sat by Pulse Oximetry (%) 100 10/30/18 14:42 ED Treatment Course - LABORATORY CBC & Chemistry Diagram: 10/30/18 16:26 10/30/18 16:26 - RADIOLOGY Radiology Studies Ordered: Category Date Time Status HEAD CT WITHOUT CONTRAST [CT] Stat CT Scan 10/30/18 15:43 Ordered Medical Decision Making - Medical Decision Making 10/30/18 16:31 Patient is a 33F with history of stroke, headaches, anxiety, on eliquis here today complaining of headache. Vitals normal and stable. Case discussed with Dr Fernandez, suggests CT. Will eval with cbc, cmp, serum preg, head ct. Will treat with tylenol and reglan. Likely discharge. 10/30/18 18:31 CBC normal. CMP normal. Serum preg normal Pending CT head. Patient reassessed, feeling better. 10/30/18 18:40 CT negative. Will discharge home with return precautions. *DC/Admit/Observation/Transfer Diagnosis at time of Disposition: Headache - Discharge Dispostion Condition at time of disposition: Good Decision to Admit order: No - Referrals Referrals: Samuel Recio [Primary Care Provider] - Danyel Fernandez MD [Staff Physician] - - Patient Instructions Printed Discharge Instructions: DI for Headache Additional Instructions: Please follow up with your neurologist this week. Please return if you have any new, worsening or concerning symptoms, especially fever, increasing pain and vision changes. - Post Discharge Activity Forms/Work/School Notes: Back to Work
[2018-10-30 16:37] LABS: HEMATOCRIT 37.1 % (32.4-45.2); MCH 32.9 pg (25.7-33.7); MCHC 35.1 g/dl (32.0-36.0); MEAN CELL VOLUME 93.6 fl (80-96); MEAN PLT VOLUME 8.7 fl (7.5-11.1); PLATELET COUNT 246 K/MM3 (134-434); RBC 3.96 M/mm3 (3.60-5.2); RDW 12.6 % (11.6-15.6); WHITE BLOOD COUNT 5.6 K/mm3 (4.0-10.0)
[2018-10-30 17:09] LABS: ALBUMIN 4.2 g/dl (3.4-5.0); ALK PHOS 119 U/L (45-117); ANION GAP 5 MMOL/L (8-16); BILIRUBIN,TOTAL 0.3 mg/dL (0.2-1); BLOOD UREA NITROGEN 10 mg/dL (7-18); CALCIUM 9.4 mg/dL (8.5-10.1); CHLORIDE 102 mmol/L (98-107); CO2 27 mmol/L (21-32); CREATININE 0.8 mg/dL (0.55-1.3); GLUCOSE,RANDOM 83 mg/dL (74-106); POTASSIUM 3.9 mmol/L (3.5-5.1); SGOT/AST 27 U/L (15-37); SGPT/ALT 66 U/L (13-61); SODIUM 133 mmol/L (136-145); TOT PROT 8.4 g/dl (6.4-8.2)
--- NOTE | 2018-10-30 19:17 | PDOC ---
Attending Attestation - Resident Resident Name: [email or web address] - ED Attending Attestation I have performed the following: I have examined & evaluated the patient, The case was reviewed & discussed with the resident, I agree w/resident's findings & plan, Exceptions are as noted - HPI HPI: 10/30/18 19:15 33 yo F h/o cva, thrombectomy anxiety afib here wtih c/o headahce. pt has h/o migraines. headache constant throbbing. frontal. no n/v no weakness. no change to speech. followed by dr ember mejialogy - Physicial Exam PE: 10/30/18 19:16 awake alert lungs clear bilat. heart rrr no mrg abd soft nt nd. ext wwp nuero alert oriented x 3. 5/5 all four ext. facies symmetric speech clear. - Medical Decision Making 10/30/18 19:16 differential cva ich tension or migraines headache. anemia. plan ivf, labs ua ucg ct head. d/w dr yap agrees wt ct. pt improved following meds. ct head negative. dc home. reeam mejia.
== END 2018-10-30 18:48 | disposition home or self-care (01) ==
LOC: JER 14:27
PROC: 3E033GC Introduction of Other Therapeutic Substance into Peripheral Vein, Percutaneous Approach (ICD-10-PCS; principal; 2018-10-30)
PROC: 3E033NZ Introduction of Analgesics, Hypnotics, Sedatives into Peripheral Vein, Percutaneous Approach (ICD-10-PCS; 2018-10-30)
DX: R51 Headache (principal); I48.91 Unspecified atrial fibrillation; Z79.01 Long term (current) use of anticoagulants; F41.9 Anxiety disorder, unspecified; Z86.73 Personal history of transient ischemic attack (TIA), and cerebral infarction without residual deficits
CPT/HCPCS: 36415; 70450-TC; 80053; 84703; 85027; 96374; 96375; 99283-25; J0131; J7030

== ENCOUNTER 2018-11-20 14:11 | Emergency (ER) | payer OTHER ==
[2018-11-20 14:40] VITALS: BMI 37.5
--- NOTE | 2018-11-20 14:40 | PDOC ---
Rapid Medical Evaluation Chief Complaint: Chest Pain Time Seen by Provider: 11/20/18 14:36 Medical Evaluation: Allergies Allergy/AdvReac Type Severity Reaction Status Date / Time No Known Drug Allergies AdvReac Verified 11/20/18 14:36 11/20/18 14:37 I have performed a brief in-person evaluation of this patient. The patient presents with a chief compliant of burning sensation in mid chest since Tuesday. States epigastric discomfort, and nausea Pertinent physical exam findings NAD even and unlabored breathing +tenderness to mid chest and mid epigastric area I have ordered the following The patient will proceed to the ED for further evaluation. Discharge Disposition - Diagnosis Nausea - Referrals - Patient Instructions - Post Discharge Activity
[2018-11-20] MEDS ORDERED: KETOROLAC TROMETHAMINE 30 MG/1 ML VIAL IVPUSH STA (15:54)
[2018-11-20] MEDS ORDERED: ONDANSETRON 4 MG/2 ML VIAL IVPUSH ONE (15:54)
[2018-11-20] MEDS ORDERED: PANTOPRAZOLE SODIUM 40 MG in SODIUM CHLORIDE 100 ML IVPB ONE (15:54)
[2018-11-20] MEDS ORDERED: SODIUM CHLORIDE 1,000 ML IV STA (15:54)
[2018-11-20] MEDS ORDERED: PANTOPRAZOLE SODIUM 40 MG/100 ML BAG IVPB ONE (16:06)
[2018-11-20] MEDS ORDERED: ONDANSETRON 4 MG/2 ML VIAL ONE ×2 (16:07→16:08)
[2018-11-20] MEDS ORDERED: KETOROLAC TROMETHAMINE 30 MG/1 ML VIAL ONE (16:07)
--- NOTE | 2018-11-20 16:10 | PDOC ---
History of Present Illness - General Chief Complaint: Pain, Acute Stated Complaint: CHEST DISCOMFORT / BURNING PAIN Time Seen by Provider: 11/20/18 14:36 History Source: Patient Exam Limitations: No Limitations - History of Present Illness Travel History: No Initial Comments: 11/20/18 16:16 33 y/o female presents to the ED with c/o epigastric burning after eating out and then having funnel cake /popcorn last night. Pt states felt nauseated and then pain radiated the lower chest within a 1/2 hr. Pt states later that evening had become anxious and had to use calming methods to feel better. Pt states chest pain resolved by this am but the burning to her upper stomach continued with nausea. Pt denies GI hx or smoking/drug use Timing/Duration: reports: changing over time Quality: reports: mild, burning Abdominal Pain Onset Location: reports: epigastric Pain Radiation: reports: chest Activities at Onset: reports: eating Aggravating Factors: improves with: Eating Alleviating Factors: improves with: None Past History - Travel Traveled outside of the country in the last 30 days: No Close contact w/someone who was outside of country & ill: No - Past Medical History Allergies/Adverse Reactions: Allergies Allergy/AdvReac Type Severity Reaction Status Date / Time No Known Drug Allergies AdvReac Verified 11/20/18 14:36 Home Medications: Ambulatory Orders Cyclobenzaprine HCl 10 mg PO Q8H PRN #14 tablet 01/29/18 Apixaban [Eliquis] 5 mg PO BID 02/01/18 Amoxicillin - [Amoxicillin 500mg Capsule -] 1,000 mg PO DAILY 10 Days #20 capsule 05/21/18 Cephalexin [Keflex] 500 mg PO BID #14 capsule 05/24/18 clonazePAM [Klonopin -] 0.25 mg PO BID #6 tablet MDD 2 doses 08/02/18 Anemia: No Asthma: No Cancer: No Cardiac Disorders: No CVA: Yes (06/2017) COPD: No CHF: No DVT: No Dementia: No Diabetes: No GI Disorders: No Disorders: No HTN: No Hypercholesterolemia: No Liver Disease: No Seizures: No Thyroid Disease: No Other medical history: TIA - Surgical History Appendectomy: No Cholecystectomy: No Neurologic Surgery: No - Reproductive History (#): 4 Para: 3 Ectopic : Yes - Immunization History Immunization Up to Date: No (flu) - Suicide/Smoking/Psychosocial Hx Smoking Status: No Smoking History: Never smoked Have you smoked in the past 12 months: No Number of Cigarettes Smoked Daily: 0 Hx Alcohol Use: No Drug/Substance Use Hx: No Substance Use Type: None Hx Substance Use Treatment: No Patient Lives Alone: No Lives with/in: spouse/SO Review of Systems - Review of Systems Able to Perform ROS?: Yes Constitutional: No: Symptoms Reported HEENTM: No: Symptoms Reported Respiratory: No: Symptoms reported Cardiac (ROS): Yes: Chest Pain ABD/GI: Yes: Nausea, Indigestion. No: Vomiting, Abdominal cramping : No: Symptoms Reported Musculoskeletal: No: Symptoms Reported Integumentary: No: Symptoms Reported Neurological: No: Symptoms reported Psychiatric: Yes: Anxiety Endocrine: No: Symptoms Reported Hematologic/Lymphatic: No: Symptoms Reported *Physical Exam - Vital Signs Last Vital Signs Temp Pulse Resp BP Pulse Ox 98.3 F 83 16 119/73 100 11/20/18 14:36 11/20/18 14:36 11/20/18 14:36 11/20/18 14:36 11/20/18 14:36 - Physical Exam General Appearance: Yes: Nourished, Appropriately Dressed. No: Apparent Distress HEENT: positive: EOMI, ANURADHA, TMs Normal, Pharynx Normal. negative: Pale Conjunctivae Neck: positive: Normal Thyroid, Supple Respiratory/Chest: positive: Lungs Clear, Normal Breath Sounds. negative: Chest Tender, Respiratory Distress, Accessory Muscle Use Cardiovascular: positive: Regular Rhythm, Regular Rate. negative: Murmur Gastrointestinal/Abdominal: positive: Normal Bowel Sounds, Soft, Tenderness ( epigastric). negative: Distended Musculoskeletal: negative: CVA Tenderness Extremity: positive: Normal Capillary Refill. negative: Pedal Edema Integumentary: positive: Normal Color, Warm, Moist Neurologic: positive: Normal Mood/Affect (calm), Motor Strength 5/5 (ambulatory) Moderate Sedation - Procedure Monitoring Vital Signs: Procedure Monitoring Vital Signs Temperature 98.3 F 11/20/18 14:36 Pulse Rate 83 11/20/18 14:36 Respiratory Rate 16 11/20/18 14:36 Blood Pressure 119/73 11/20/18 14:36 O2 Sat by Pulse Oximetry (%) 100 11/20/18 14:36 ED Treatment Course - LABORATORY CBC & Chemistry Diagram: 11/20/18 16:30 11/20/18 18:00 Medical Decision Making - Medical Decision Making 11/20/18 16:13 CC:pt w/ epigastric burning radiating to lower mid chest after eating dinner out last evening. Pt states then began to have a painc attack which resolved but came today for eval Exam: eoigastric tenderness, No ruq or luq tenderness Plan: labs, urine, ivf, zofran , protonix, and toradol 11/20/18 18:27 Laboratory Tests 11/20/18 18:00 Sodium 138 Potassium 3.5 Chloride 108 H Carbon Dioxide 24 Anion Gap 6 L BUN 7 Creatinine 0.7 Creat Clearance w eGFR 96.37 Random Glucose 85 Calcium 7.5 L AST 12 L ALT 21 Alkaline Phosphatase 80 Total Protein 6.5 Albumin 3.1 L Lipase 145 Pt states feeling better. Will discharge home with protonix and zofran *DC/Admit/Observation/Transfer Diagnosis at time of Disposition: Nausea, Epigastric abdominal pain - Discharge Dispostion Disposition: HOME Condition at time of disposition: Improved - Referrals Referrals: Samuel Recio [Primary Care Provider] - - Patient Instructions Printed Discharge Instructions: DI for Nausea -- Adult, DI for Epigastric Pain Additional Instructions: Please follow a bland diet. Take zofran as needed for nausea. Take protonix as prescribed. - Post Discharge Activity
[2018-11-20 16:42] LABS: BASO % 0.7 % (0-2.0); EOS % 1.5 % (0-4.5); HEMATOCRIT 36.4 % (32.4-45.2); HEMOGLOBIN 12.8 GM/dL (10.7-15.3); LYMPH % 33.5 % (8-40); MCH 33.1 pg (25.7-33.7); MCHC 35.2 g/dl (32.0-36.0); MEAN CELL VOLUME 93.8 fl (80-96); MEAN PLT VOLUME 8.8 fl (7.5-11.1); MONO % 11.2 % (3.8-10.2); NEUT % 53.1 % (42.8-82.8); PLATELET COUNT 260 K/MM3 (134-434); RBC 3.88 M/mm3 (3.60-5.2); RDW 12.4 % (11.6-15.6); WHITE BLOOD COUNT 7.5 K/mm3 (4.0-10.0)
[2018-11-20 16:44] LABS: URINE APPEARANCE SLCLOUDY; URINE BILIRUBIN NEGATIVE (<2.0 mg/dL); URINE COLOR LTYELLOW; URINE GLUCOSE (UA) NEGATIVE (NEGATIVE); URINE KETONE NEGATIVE (NEGATIVE); URINE LEUK ESTERASE NEGATIVE (NEGATIVE); URINE NITRITE NEGATIVE (NEGATIVE); URINE PROTEIN NEGATIVE (NEGATIVE); URINE UROBILINOGEN NEGATIVE mg/dL (0.2-1.0)
[2018-11-20 16:46] LABS: HCG,QUALITATIVE URINE Negative
[2018-11-20 16:48] LABS: EPI CELLS FEW /HPF (FEW)
[2018-11-20 18:24] LABS: ALBUMIN 3.1 g/dl (3.4-5.0); ALK PHOS 80 U/L (45-117); ANION GAP 6 MMOL/L (8-16); BILIRUBIN,TOTAL 0.3 mg/dL (0.2-1); BLOOD UREA NITROGEN 7 mg/dL (7-18); CALCIUM 7.5 mg/dL (8.5-10.1); CHLORIDE 108 mmol/L (98-107); CO2 24 mmol/L (21-32); CREATININE 0.7 mg/dL (0.55-1.3); GLUCOSE,RANDOM 85 mg/dL (74-106); LIPASE 145 U/L (73-393); POTASSIUM 3.5 mmol/L (3.5-5.1); SGOT/AST 12 U/L (15-37); SGPT/ALT 21 U/L (13-61); SODIUM 138 mmol/L (136-145); TOT PROT 6.5 g/dl (6.4-8.2)
[2018-11-20 18:54] VITALS: BP 114/75; PULSE 78; TEMP 98.8
== END 2018-11-20 18:57 | disposition home or self-care (01) ==
LOC: JER 14:11
PROC: 3E033GC Introduction of Other Therapeutic Substance into Peripheral Vein, Percutaneous Approach (ICD-10-PCS; principal; 2018-11-20)
PROC: 3E033GC Introduction of Other Therapeutic Substance into Peripheral Vein, Percutaneous Approach (ICD-10-PCS; 2018-11-20)
PROC: 3E0333Z Introduction of Anti-inflammatory into Peripheral Vein, Percutaneous Approach (ICD-10-PCS; 2018-11-20)
DX: R10.13 Epigastric pain (principal); R11.0 Nausea; Z86.73 Personal history of transient ischemic attack (TIA), and cerebral infarction without residual deficits
CPT/HCPCS: 36415; 80053; 81003; 81015; 83690; 84703; 85025; 96365; 96375; 99283-25; J7030

== ENCOUNTER 2019-01-12 13:52 | Emergency (ER) | payer OTHER ==
[2019-01-12 14:07] VITALS: BMI 38.0
[2019-01-12] MEDS ORDERED: SODIUM CHLORIDE 1,000 ML IV STA (15:44)
[2019-01-12 16:45] LABS: HCG,QUALITATIVE URINE Negative
[2019-01-12 16:48] LABS: ALBUMIN 3.8 g/dl (3.4-5.0); BILIRUBIN,TOTAL 0.2 mg/dL (0.2-1); CALCIUM 9.2 mg/dL (8.5-10.1); CREATININE 0.8 mg/dL (0.55-1.3); POTASSIUM 4.2 mmol/L (3.5-5.1); TOT PROT 7.8 g/dl (6.4-8.2)
[2019-01-12 16:48] LABS: EPI CELLS 5.9 /HPF (0-5/HPF); PH,URINE 6.5 (5.0-8.0); URINE APPEARANCE CLEAR; URINE BACTERIA 281.3 /hpf (NEGATIVE); URINE BILIRUBIN NEGATIVE (NEGATIVE); URINE CASTS 1 /lpf (0-8); URINE COLOR YELLOW; URINE GLUCOSE (UA) NEGATIVE (NEGATIVE); URINE KETONE NEGATIVE (NEGATIVE); URINE LEUK ESTERASE NEGATIVE (NEGATIVE); URINE NITRITE NEGATIVE (NEGATIVE); URINE PROTEIN NEGATIVE (NEGATIVE); URINE RBC 3 /hpf (0-4); URINE WBC 4 /hpf (0-5)
--- NOTE | 2019-01-12 17:04 | PDOC ---
History of Present Illness - General Chief Complaint: Blood Pressure Problem Stated Complaint: DIZZINESS Time Seen by Provider: 01/12/19 15:06 History Source: Patient Exam Limitations: No Limitations - History of Present Illness Initial Comments: 01/12/19 16:59 33 y/o female with hx of depression, anxiety, and CVA presents to the ED for c/ o dizziness intermittently worse with standing. Pt denies weakness, fever, headache, nausea, urinary or bowel complaints. Pt denies recent illness, travel , or change in diet/weight. Pt states does feel dehydrated because her urine is a little dark and has not been drinking water as much as usual Timing/Duration: intermittent Severity: mild Associated Symptoms: reports: other Past History - Travel Traveled outside of the country in the last 30 days: No Close contact w/someone who was outside of country & ill: No - Past Medical History Allergies/Adverse Reactions: Allergies Allergy/AdvReac Type Severity Reaction Status Date / Time No Known Drug Allergies AdvReac Verified 01/12/19 14:07 Home Medications: Ambulatory Orders Apixaban [Eliquis] 5 mg PO BID 02/01/18 Ferrous Sulfate [Iron] 325 mg PO Q2D 01/12/19 Anemia: No Asthma: No Cancer: No Cardiac Disorders: No CVA: Yes (06/2017) COPD: No CHF: No DVT: No Dementia: No Diabetes: No GI Disorders: No Disorders: No HTN: No Hypercholesterolemia: No Liver Disease: No Seizures: No Thyroid Disease: No - Surgical History Appendectomy: No Cholecystectomy: No Neurologic Surgery: No - Reproductive History (#): 4 Para: 3 Ectopic : Yes - Immunization History Immunization Up to Date: No (flu) - Suicide/Smoking/Psychosocial Hx Smoking Status: No Smoking History: Never smoked Have you smoked in the past 12 months: No Number of Cigarettes Smoked Daily: 0 Information on smoking cessation initiated: No Hx Alcohol Use: No Drug/Substance Use Hx: Yes (CBD OIL) Substance Use Type: None Hx Substance Use Treatment: No Patient Lives Alone: No Lives with/in: spouse/SO Review of Systems - Review of Systems Able to Perform ROS?: Yes Constitutional: Yes: Weakness HEENTM: No: Symptoms Reported Respiratory: No: Symptoms reported Cardiac (ROS): Yes: Lightheadedness ABD/GI: No: Symptoms Reported : No: Symptoms Reported Musculoskeletal: No: Symptoms Reported Integumentary: No: Symptoms Reported Neurological: Yes: Dizziness Endocrine: No: Symptoms Reported Hematologic/Lymphatic: No: Symptoms Reported *Physical Exam - Vital Signs Last Vital Signs Temp Pulse Resp BP Pulse Ox 98 F 86 18 108/72 98 01/12/19 14:40 01/12/19 14:40 01/12/19 14:40 01/12/19 14:40 01/12/19 14:40 - Physical Exam General Appearance: Yes: Nourished, Appropriately Dressed. No: Apparent Distress HEENT: positive: Pharynx Normal (dry). negative: Pale Conjunctivae Neck: positive: Supple Respiratory/Chest: positive: Lungs Clear, Normal Breath Sounds. negative: Respiratory Distress, Accessory Muscle Use Cardiovascular: positive: Regular Rhythm, Regular Rate. negative: Murmur Gastrointestinal/Abdominal: positive: Soft. negative: Tenderness Integumentary: positive: Normal Color, Warm, Moist Neurologic: positive: Normal Mood/Affect, Motor Strength 5/5 (ambulatory) ED Treatment Course - LABORATORY CBC & Chemistry Diagram: 01/12/19 16:01 01/12/19 16:01 - ADDITIONAL ORDERS Additional order review: Laboratory Results 01/12/19 01/12/19 16:01 15:55 Sodium 136 Potassium 4.2 Chloride 105 Carbon Dioxide 25 Anion Gap 6 L BUN 14 Creatinine 0.8 Est GFR (CKD-EPI)AfAm 112.27 Est GFR (CKD-EPI)NonAf 96.87 Random Glucose 82 Calcium 9.2 Total Bilirubin 0.2 AST 16 ALT 33 Alkaline Phosphatase 89 Total Protein 7.8 Albumin 3.8 Urine Color Yellow Urine Appearance Clear Urine pH 6.5 Ur Specific [place] 1.010 Urine Protein Negative Urine Glucose (UA) Negative Urine Ketones Negative Urine Blood 2+ H Urine Nitrite Negative Urine Bilirubin Negative Urine Urobilinogen 1.0 Ur Leukocyte Esterase Negative Urine WBC (Auto) 4 Urine RBC (Auto) 3 Urine Casts (Auto) 1 U Epithel Cells (Auto) 5.9 Urine Bacteria (Auto) 281.3 Urine HCG, Qual Negative - Medications Given in the ED: ED Medications Discontinued Medications Generic Name Dose Route Start Last Admin Trade Name Freq PRN Reason Stop Dose Admin Sodium Chloride 1,000 mls @ 1,000 mls/hr 01/12/19 15:44 01/12/19 16:06 Normal Saline - IV 01/12/19 16:43 1,000 mls/hr ASDIR STA Administration Medical Decision Making - Medical Decision Making 01/12/19 16:04 CC: feels dizzy and dehydrated Exam: vss, moth dry Plan: labs, urine, and ivf 01/12/19 18:02 Laboratory Tests 01/12/19 01/12/19 01/12/19 15:55 16:01 16:01 WBC 4.5 Hgb 12.7 MCV 93.1 MCHC 34.1 Neutrophils % 46.6 Lymphocytes % 41.8 H D Sodium 136 Potassium 4.2 Chloride 105 Carbon Dioxide 25 Anion Gap 6 L BUN 14 Creatinine 0.8 Est GFR (CKD-EPI)NonAf 96.87 Random Glucose 82 Calcium 9.2 AST 16 ALT 33 Alkaline Phosphatase 89 Total Protein 7.8 Albumin 3.8 Urine Blood 2+ H Urine Nitrite Negative Urine Bilirubin Negative Ur Leukocyte Esterase Negative Urine HCG, Qual Negative Patient states feeling much better after receiving fluids. Patient's eating a dinner tray. Will discharge home. *DC/Admit/Observation/Transfer Diagnosis at time of Disposition: Dizzy - Discharge Dispostion Disposition: HOME Condition at time of disposition: Improved - Referrals Referrals: Samuel Recio [Primary Care Provider] - - Patient Instructions Printed Discharge Instructions: Eating Healthfully: Tips to Make It Easier Additional Instructions: At this time I recommend taking plenty of fluids and eating small frequent amounts meals throughout the day. - Post Discharge Activity
[2019-01-12 17:11] LABS: BASO % 0.5 % (0-2.0); EOS % 1.2 % (0-4.5); HEMATOCRIT 37.1 % (32.4-45.2); HEMOGLOBIN 12.7 GM/dL (10.7-15.3); LYMPH % 41.8 % (8-40); MCH 31.7 pg (25.7-33.7); MCHC 34.1 g/dl (32.0-36.0); MEAN CELL VOLUME 93.1 fl (80-96); MEAN PLT VOLUME 9.2 fl (7.5-11.1); MONO % 9.9 % (3.8-10.2); NEUT % 46.6 % (42.8-82.8); PLATELET COUNT 233 K/MM3 (134-434); RBC 3.99 M/mm3 (3.60-5.2); RDW 12.6 % (11.6-15.6); WHITE BLOOD COUNT 4.5 K/mm3 (4.0-10.0)
[2019-01-12 18:23] VITALS: BP 110/65; PULSE 88; TEMP 98.5
== END 2019-01-12 18:23 | disposition home or self-care (01) ==
LOC: JER 13:52
PROC: 3E0337Z Introduction of Electrolytic and Water Balance Substance into Peripheral Vein, Percutaneous Approach (ICD-10-PCS; principal; 2019-01-12)
DX: R42 Dizziness and giddiness (principal); F41.8 Other specified anxiety disorders; F32.9 Major depressive disorder, single episode, unspecified; Z86.73 Personal history of transient ischemic attack (TIA), and cerebral infarction without residual deficits
CPT/HCPCS: 36415; 80053; 81003; 84703; 85025; 87086; 96360; 99282-25; J7030

== ENCOUNTER 2019-01-29 22:43 | Observation (INO) | payer OTHER ==
--- NOTE | 2019-01-29 23:04 | PDOC ---
History of Present Illness - General Chief Complaint: CVA/TIA Stated Complaint: ANXIETY/NUMBNESS/NAUSEA Time Seen by Provider: 01/29/19 23:04 - History of Present Illness Initial Comments: 33 year old female with history of presumed thromboembolic stroke (on eliquis) presenting with general body weakness and mildly slurred speech one hour prior to presentation. NIHSS 1 on presentation but patient on NOAC so TPA is contraindicated. Denies any recent sick symptoms. Of note, she does have anxiety and was admittedly unsure if this was an anxiety attack but was concerned that her speech felt slurred to her. They did perform a halter monitor evaluation and she states that they did not find any evidence of atrial fibrillation but decided to continue the eliquis. 01/29/19 23:43 tPA Exclusion Checklist 0-3hr - Time Elapsed Date last known well: 01/29/19 Time last known well: 22:00 Elaspsed time: Day(s) and 4 Hour(s) and 14 Minutes - Thrombolytic Therapy Candidate Is the patient eligible for Thrombolytic Therapy?: Yes - Exclusion Criteria 0-3hr SBP greater than 185 or DBP greater than 110mmHg despite tx: No Recent IC/spinal surgery,head trauma or stroke w/in last 3mo: No Active internal bleeding: No Blding diathesis(low plt ct, inc PTT,INR>1.7 or use of NOAC): Yes Symptoms suggest subarachnoid hemorrhage: No CT demonstrates multilobar infarct(>1/3 cerebral hemiphere): No Arterial puncture at noncompressible site in previous 7 days: No Blood glucose concentration less than 50mg/dL (2.7mmol/L): No - Relative Exclusion Criteria 0-3h Life expectancy <1yr/severe co-morbid illness/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 on admit: No : No Patient/family refused: No Rapid improvement: No Stroke severity too mild: No Recent acute DC (w/in previous 3 months): No Seizure at onset with postictal residual neuro impairments: No Major surgery or serious trauma w/in previous 14 days: No Recent GI or hemorrhage (w/in previous 21 days): No - Ineligibility reason(s) Reasons No tPA given: See reason(s) noted above NIH Stroke Scale - Last Known Well Date/Time & Onset Date Last Known Well: 01/29/19 Time Last Known Well: 22:00 - Initial Evaluation Level of consciousness: Alert Ask patient the month and their age: Answers both correctly Ask patient to open & close eyes; make fist and let go: Obeys both correctly Best gaze (horizontal eye movement): Normal Visual field testing: No visual field loss Facial paresis (Show teeth/raise eyebrows/close eyes tight): Normal symmetrical movement Motor Function: Left Arm: Normal Motor Function: Right Arm: Normal (extends arm 90 (or 45) degrees for 10 seconds without drift Motor Function: Left Leg: Normal (extends leg 30 degrees for 5 seconds without drift) Motor Function: Right Leg: Normal (extends leg 30 degrees for 5 seconds without drift) Limb Ataxia: No ataxia Sensory(Use pinprick test arms,legs,trunk,face/side to side): Normal Best language (Describe picture, name items, read sentences): No Aphasia Dysarthria (read several words): Mild to moderate slurring of words Extinction and Inattention: No abnormality (and subjective total body numbness) - Total Score NIH Stroke Scale Score: 1 Past History - Past Medical History Allergies/Adverse Reactions: Allergies Allergy/AdvReac Type Severity Reaction Status Date / Time No Known Drug Allergies AdvReac Verified 01/12/19 14:07 Home Medications: Ambulatory Orders Apixaban [Eliquis] 5 mg PO BID 02/01/18 Ferrous Sulfate [Iron] 325 mg PO Q2D 01/12/19 Anemia: No Asthma: No Cancer: No Cardiac Disorders: No CVA: Yes (06/2017) COPD: No CHF: No DVT: No Dementia: No Diabetes: No GI Disorders: No Disorders: No HTN: No Hypercholesterolemia: No Liver Disease: No Seizures: No Thyroid Disease: No - Surgical History Appendectomy: No Cholecystectomy: No Neurologic Surgery: No - Reproductive History (#): 4 Para: 3 Ectopic : Yes - Immunization History Immunization Up to Date: No (flu) - Suicide/Smoking/Psychosocial Hx Smoking Status: No Smoking History: Never smoked Have you smoked in the past 12 months: No Number of Cigarettes Smoked Daily: 0 Hx Alcohol Use: No Drug/Substance Use Hx: Yes (CBD OIL) Substance Use Type: None Hx Substance Use Treatment: No Review of Systems - Review of Systems Constitutional: No: Chills, Diaphoresis, Fever, Loss of Appetite HEENTM: No: Eye Pain, Blurred Vision, Tearing Respiratory: No: Cough, Orthopnea, Shortness of Breath Cardiac (ROS): No: Chest Pain, Edema, Irregular Heart Rate ABD/GI: No: Diarrhea, Nausea, Vomiting : No: Dysuria, Discharge, Frequency Musculoskeletal: No: Joint Pain, Joint Swelling Integumentary: No: Flushing, Lesions Neurological: Yes: Numbness, Paresthesia, Tingling. No: Headache, Seizure Psychiatric: Yes: Anxiety. No: Depression Hematologic/Lymphatic: No: Anemia, Blood Clots, Easy Bleeding *Physical Exam - Physical Exam General Appearance: Yes: Nourished, Appropriately Dressed. No: Apparent Distress HEENT: positive: EOMI, ANURADHA, Normal ENT Inspection. negative: Normal Voice ( slightly slurred speech) Neck: positive: Trachea midline, Normal Thyroid, Supple. negative: Tender, Rigid Respiratory/Chest: positive: Lungs Clear, Normal Breath Sounds. negative: Chest Tender, Respiratory Distress, Accessory Muscle Use Cardiovascular: positive: Regular Rhythm, Regular Rate Gastrointestinal/Abdominal: positive: Normal Bowel Sounds, Flat, Soft. negative : Tender Lymphatic: negative: Adenopathy, Tenderness Musculoskeletal: positive: Normal Inspection. negative: Decreased Range of Motion Extremity: positive: Normal Capillary Refill, Normal Inspection, Normal Range of Motion. negative: Tender Integumentary: positive: Normal Color, Dry, Warm Neurologic: positive: Fully Oriented, Alert, Normal Mood/Affect, Normal Response , Motor Strength 5/5 ED Treatment Course - LABORATORY CBC & Chemistry Diagram: 01/29/19 23:17 01/29/19 23:17 Medical Decision Making - Medical Decision Making 33 year old female with PMH of ischemic stroke (on eliquis) presenting with slightly slurred speech and total body altered sensation. Head CT noty suspicious for hemorrhagic stroke and labs WNL. EKG demonstrating NSR with rate 96, MI 176, QRS 88, QTc 449, normal axis, and no ST changes but twi in AVR, V1, and V2. 01/30/19 00:[address] negative and will get MRI per Dada and admit to medicine after conversation with Dr. Feng. 01/30/19 02:14 *DC/Admit/Observation/Transfer Diagnosis at time of Disposition: Cerebrovascular accident (CVA) Qualifiers: CVA mechanism: unspecified Qualified Code(s): I63.9 - Cerebral infarction, unspecified - Discharge Dispostion Condition at time of disposition: Stable Decision to Admit order: Yes - Referrals - Patient Instructions - Post Discharge Activity
[2019-01-29] MEDS ORDERED: SODIUM CHLORIDE 1,000 ML IV SCH (23:15)
[2019-01-29 23:26] VITALS: BMI 38.0
[2019-01-29 23:36] LABS: BASO % 0.4 % (0-2.0); EOS % 0.9 % (0-4.5); HEMATOCRIT 35.9 % (32.4-45.2); LYMPH % 32.7 % (8-40); MCH 31.1 pg (25.7-33.7); MCHC 33.3 g/dl (32.0-36.0); MEAN CELL VOLUME 93.4 fl (80-96); MEAN PLT VOLUME 8.7 fl (7.5-11.1); MONO % 10.2 % (3.8-10.2); NEUT % 55.8 % (42.8-82.8); PLATELET COUNT 237 K/MM3 (134-434); RBC 3.84 M/mm3 (3.60-5.2); RDW 12.1 % (11.6-15.6); WHITE BLOOD COUNT 5.3 K/mm3 (4.0-10.0)
[2019-01-29 23:54] LABS: INR 1.13 (0.83-1.09); PROTHROMBIN TIME (PATIENT) 13.3 SEC (9.7-13.0)
[2019-01-30 00:09] LABS: ALBUMIN 3.8 g/dl (3.4-5.0); ALK PHOS 90 U/L (45-117); ANION GAP 6 MMOL/L (8-16); BILIRUBIN,TOTAL 0.2 mg/dL (0.2-1); BLOOD UREA NITROGEN 14 mg/dL (7-18); CHLORIDE 107 mmol/L (98-107); CHOLESTEROL 182 mg/dL (50-200); CO2 24 mmol/L (21-32); CREATININE 1.1 mg/dL (0.55-1.3); GLUCOSE,RANDOM 94 mg/dL (74-106); HDL CHOLESTEROL 49 mg/dL (40-60); POTASSIUM 3.6 mmol/L (3.5-5.1); SGOT/AST 15 U/L (15-37); SGPT/ALT 40 U/L (13-61); SODIUM 138 mmol/L (136-145); TOT PROT 7.7 g/dl (6.4-8.2); TRIGLYCERIDES 100 mg/dL (0-150)
[2019-01-30 01:12] LABS: EPI CELLS 2.1 /HPF (0-5/HPF); HYALINE CASTS 0 /lpf (0-8); PH,URINE 6.5 (5.0-8.0); URINE APPEARANCE CLEAR; URINE BACTERIA 81.6 /hpf (NEGATIVE); URINE BILIRUBIN NEGATIVE (NEGATIVE); URINE COLOR YELLOW; URINE GLUCOSE (UA) NEGATIVE (NEGATIVE); URINE KETONE NEGATIVE (NEGATIVE); URINE LEUK ESTERASE NEGATIVE (NEGATIVE); URINE NITRITE NEGATIVE (NEGATIVE); URINE PROTEIN NEGATIVE (NEGATIVE); URINE RBC 2 /hpf (0-4); URINE UROBILINOGEN 0.2 mg/dL (0.2-1.0); URINE WBC 2 /hpf (0-5)
--- NOTE | 2019-01-30 01:24 | PDOC ---
Documentation entered by Briana Avila SCRIBE, acting as scribe for Krysta Perla DO. Krysta Perla DO: This documentation has been prepared by the Margarita butler Adrianna, SCRIBE, under my direction and personally reviewed by me in its entirety. I confirm that the documentation accurately reflects all work, treatment, procedures, and medical decision making performed by me. Attending Attestation - Resident Resident Name: Kandis Dsouza - ED Attending Attestation I have performed the following: I have examined & evaluated the patient, The case was reviewed & discussed with the resident, I agree w/resident's findings & plan - HPI HPI: The patient is a 33 year old female, with a significant PMH of presumed thromboembolic stroke (on Eliquis) and anxiety, who presents to the emergency department with generalized weakness and slightly slurred speech for one hour. Patient is currently on anticoagulants. Patient does endorse having anxiety, and is unsure if her current symptoms are related to her anxiety attacks. She admits to having a holter monitor evaluation which was negative for Afib, but Eliquis was continued. The patient denies chest pain, shortness of breath, headache and dizziness. Denies fever, chills, nausea, vomit, diarrhea and constipation. Denies dysuria, frequency, urgency and hematuria. Allergies: NKA Past surgical history: None reported Social history: No reported 01/30/19 00:03 - Physicial Exam PE: Agree with resident exam. 01/30/19 00:03 - Medical Decision Making EXAM: HEAD CT (STROKE) without contrast FINDINGS: The clinically suspected infarct is not clearly visible on CT at this time. There is some increased low density in the left posterior frontal lobe relative to the right but I'm not certain if this is artifact or not. This will need to be correlated with patient's clinical neurological symptoms. No hemorrhage. No mass. No shift or herniation. Osseous structures are intact. Reported By: Dannie Dean MD 01/29/2019 23:39 EST 01/30/19 00:02 01/30/19 01:22 33-year-old female with history of CVA currently on Miriam course Patient describes an episode of whole body tingling with generalized weakness Patient was noted to have some slurred speech on arrival and stroke alert was activated CT scan of the brain shows some questionable abnormality in the left posterior frontal lobe with no signs of acute bleed History discussed with neurology on-call by the emergency department resident who recommends admission and MRI in the morning On reevaluation at 1:15 AM patient is awake alert in no acute distress and is nonfocal neurologically She states she just feels anxious She will be admitted to medical service for further evaluation
--- NOTE | 2019-01-30 02:32 | PN ---
Teaching Attending Note Name of Resident: Chata Feng ATTENDING PHYSICIAN STATEMENT I saw and evaluated the patient. I reviewed the resident's note and discussed the case with the resident. I agree with the resident's findings and plan as documented. 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 Says she felt weird with diffuse tingling. Patient reports having daily anxiety attacks since her CVA 2 years ago, and is unsure if her current symptoms are related to her anxiety attacks. She was asked by her PCP to increase her daily nortriptyline dose from 25 mg to 50 mg to address the anxiety attacks, but she has been reluctant to do that. Rather wants to wean herself off the drug. She insists that after her CVA 2 years ago, she was discharged to Rehab, but never had any outpatient cardiac monitoring to detect atrial fibrillation, but Eliquis was continued. Her symptoms resolved while in the ER. LMP was 1 month ago. The patient denies chest pain, shortness of breath, headache and dizziness. Denies fever, chills, nausea, vomit, diarrhea and constipation. Denies dysuria, frequency, urgency and hematuria. OBJECTIVE: Alert and obese Vital Signs Period Temp Pulse Resp BP Sys/[place] Pulse Ox Last 24 Hr 98.3 F 102 20 112/70 98 HEENT: No Jaundice, eye redness or discharge, PERRLA, EOMI. Normocephalic, atraumatic. External ears are normal and hearing is grossly intact. No nasal discharge. Neck: Supple, nontender. No palpable adenopathy or thyromegaly. No JVD Chest: Good effort. Clear to auscultation and percussion. Heart: Regular. No S3, rub or murmur Abdomen: Not distended, soft, nontender and no HSM. No rebound or guarding. Normal bowel sounds. Ext: Peripheral pulses intact. No leg edema. Skin: Warm and dry. No petechiae, rash or ecchymosis. Neuro: Alert. Oriented x3. CN 2-12 grossly intact. Sensation grossly intact in all four extremities and DTR are symmetric. Plantar reflexes are flexor. Psych: Appropriate mood and affect. Good insight. Current Medications Generic Name Dose Route Start Last Admin Trade Name Ronal PRN Reason Stop Dose Admin Sodium Chloride 1,000 mls @ 42 mls/hr 01/29/19 23:15 01/29/19 23:40 Normal Saline - IV 42 mls/hr ASDIR [facility] Administration Home Medications Medication Instructions Recorded Apixaban [Eliquis] 5 mg PO BID 02/01/18 Ferrous Sulfate [Iron] 325 mg PO Q2D 01/12/19 Abnormal Lab Results 01/29/19 01/29/19 01/30/19 23:17 23:17 00:59 PT with INR 13.30 H INR 1.13 H Anion Gap 6 L Ur Specific [place] 1.006 L Urine Blood 1+ H ASSESSMENT AND PLAN: 1. TIA/Rule out CVA - Symptoms resolved while in the ER. CT scan of the brain shows some questionable abnormality in the left posterior frontal lobe with no signs of acute bleed. No mass. No shift or herniation. EKG shows NSR with no significant ST-T wave changes. ER physician discussed with neurology on-call who recommends admission and MRI in the morning. Will admit to telemetry and get ECHO, TSH, brain MRI, Carotid doppler, speech and swallow evaluation and PT consult. Will get fasting lipids and treat with high dose statin. Cardiology consult to consider prison outpatient cardiac monitoring - she is very young, thus needs justification for "prison" anticoagulation. Would also need outpatient workup to search for other risk factors for VTE. Psychiatry consult for debilitating daily anxiety attacks. 2. Obesity Counseled on the risks associated with obesity. Will provide patient all the necessary assistance, counseling and positive reinforcement to facilitate weight loss. Consult county program technician. 3. DVT prophylaxis - On Eliquis 4. Advance directives - Full code
[2019-01-30] MEDS ORDERED: ACETAMINOPHEN 325 MG TABLET (FP) PO PRN (02:49)
[2019-01-30] MEDS ORDERED: ATORVASTATIN CA 80 MG TABLET (FP) PO SCH ×2 (02:56→22:00)
[2019-01-30] MEDS ORDERED: SODIUM CHLORIDE 1,000 ML IV SCH (03:00)
--- NOTE | 2019-01-30 03:16 | HP ---
CHIEF COMPLAINT: tingling and feeling off PCP: HISTORY OF PRESENT ILLNESS: Patient is a 33 y/o female with a history of ischemic stroke ( on eliquis) depression and anxiety and presents for feeling "off". Patient reports she was in bed around 10 pm and started feeling off. She states she has bad anxiety and feels like this often. She reports she feels like a "robot" and this time was worse then usual so she wanted to make sure it wasn't another stroke. The tingling sensation is diffuse and she denies numbness or weakness. Her anxiety is poorly controlled and she has an attack at least once a day. Her ischemic stroke was two years ago. She was told she might have afib and that is why she was put on the blood thinners. She has followed up with neuro and cardio who told her she does not have afib after holter monitor and ekg. She has remained on eliquis, she is unsure why and would like to stop it. Patient quit smoking after her ischemic stroke, she has no family history of stroke, cardiovascular hx or diabetes. While in the ED they found her to have slurred speech and had a NHISS scale of 1. ED spoke with Dada who wants patient to have a MRI in the morning. Spoke with patient about MRI and she states she would not be bale to handle it with her anxiety. ER course was notable for: (1)NS (2) (3) Recent Travel: denies PAST MEDICAL HISTORY: ischemic stroke 2 years ago, depression, anxiety PAST SURGICAL HISTORY: three c sections Social History: Smoking: quit two years ago Alcohol: denies Drugs: denies Family History: Allergies No Known Drug Allergies Adverse Reaction (Verified 01/12/19 14:07) takes blood thinners HOME MEDICATIONS: Home Medications Medication Instructions Recorded Apixaban [Eliquis] 5 mg PO BID 02/01/18 Ferrous Sulfate [Iron] 325 mg PO Q2D 01/12/19 REVIEW OF SYSTEMS positive: tingling, chills, headache( when it rains), chest pain (during anxiety attacks only), nausea denies: fever, shortness of breath, diarrhea, dysuria, hematuria, numbness PHYSICAL EXAMINATION Vital Signs - 24 hr 01/29/19 23:07 Temperature 98.3 F Pulse Rate 102 H Respiratory 20 Rate Blood Pressure 112/70 O2 Sat by Pulse 98 Oximetry (%) GENERAL: Awake, alert, and fully oriented, in no acute distress. HEAD: Normal with no signs of trauma. EYES: Pupils equal, round and reactive to light, extraocular movements intact, EARS, NOSE, THROAT: Moist mucous membranes. LUNGS: Breath sounds equal, clear to auscultation bilaterally. No wheezes, and no crackles. No accessory muscle use. HEART: Regular rate and rhythm, normal S1 and S2 without murmur, rub or gallop. ABDOMEN: Soft, nontender, not distended, normoactive bowel sounds, no guarding, no rebound, no masses. MUSCULOSKELETAL: No CVA tenderness. LOWER EXTREMITIES: 2+ pulses, warm, well-perfused. No calf tenderness. No peripheral edema. NEUROLOGICAL: Cranial nerves II-XII intact. Normal speech. no dysarthria, no facial droop PSYCHIATRIC: Cooperative. Good eye contact. Appropriate mood and affect. SKIN: Warm, dry, normal turgor, no rashes or lesions noted, normal capillary refill. CBCD WBC 5.3 K/mm3 (4.0-10.0) 01/29/19 23:17 RBC 3.84 M/mm3 (3.60-5.2) 01/29/19 23:17 Hgb 12.0 GM/dL (10.7-15.3) 01/29/19 23:17 Hct 35.9 % (32.4-45.2) 01/29/19 23:17 MCV 93.4 fl (80-96) 01/29/19 23:17 MCHC 33.3 g/dl (32.0-36.0) 01/29/19 23:17 RDW 12.1 % (11.6-15.6) 01/29/19 23:17 Plt Count 237 K/MM3 (134-434) 01/29/19 23:17 MPV 8.7 fl (7.5-11.1) 01/29/19 23:17 CMP Sodium 138 mmol/L (136-145) 01/29/19 23:17 Potassium 3.6 mmol/L (3.5-5.1) 01/29/19 23:17 Chloride 107 mmol/L (98-107) 01/29/19 23:17 Carbon Dioxide 24 mmol/L (21-32) 05/27/19 23:17 Anion Gap 6 MMOL/L (8-16) L 01/29/19 23:17 BUN 14 mg/dL (7-18) 01/29/19 23:17 Creatinine 1.1 mg/dL (0.55-1.3) 01/29/19 23:17 Calcium 9.0 mg/dL (8.5-10.1) 01/29/19 23:17 Total Bilirubin 0.2 mg/dL (0.2-1) 01/29/19 23:17 AST 15 U/L (15-37) 01/29/19 23:17 ALT 40 U/L (13-61) 01/29/19 23:17 Alkaline Phosphatase 90 U/L (45-117) 01/29/19 23:17 Total Protein 7.7 g/dl (6.4-8.2) 01/29/19 23:17 Albumin 3.8 g/dl (3.4-5.0) 01/29/19 23:17 ASSESSMENT/PLAN: Patient is a 33 y/o female with a history of ischemic stroke ( on eliquis) depression and anxiety and presents for feeling "off". #tingling, r/o stroke, likely 2/2 to anxiety - Head CT: suspected infarct not visible, increased low density in left posterior frontal lobe - f/u Brain MRI/MRA tomorrow - f/u echo and carotid doppler - atorvastatin 80 gien once, continue eliquis - will f/u with Dr Garland - f/u A1c, lipid, tsh - ekg normal sinus rhythm, no abnormalities noted - will continue eliquis 5 mg BID #anxiety - continue nortriptyline 25 mg daily - consider psych consult for better management of anxiety #DVT ppx - patient on eliquis FEN - NS @ 125 - full diet, patient passed bedside swallow - monitor lytes Dispo: monitor on stroke floor, f/u rec per neuro Visit type - Emergency Visit Emergency Visit: Yes ED Registration Date: 01/29/19 Care time: The patient presented to the Emergency Department on the above date and was hospitalized for further evaluation of their emergent condition. - New Patient This patient is new to me today: Yes Date on this admission: 01/30/19 - Critical Care Critical Care patient: No
[2019-01-30 06:52] LABS: BASO % 0.4 % (0-2.0); HEMATOCRIT 32.2 % (32.4-45.2); HEMOGLOBIN 10.9 GM/dL (10.7-15.3); LYMPH % 40.2 % (8-40); MCH 31.4 pg (25.7-33.7); MCHC 33.7 g/dl (32.0-36.0); MEAN CELL VOLUME 92.9 fl (80-96); MEAN PLT VOLUME 8.8 fl (7.5-11.1); MONO % 10.7 % (3.8-10.2); NEUT % 47.7 % (42.8-82.8); PLATELET COUNT 228 K/MM3 (134-434); RBC 3.46 M/mm3 (3.60-5.2); RDW 12.2 % (11.6-15.6); WHITE BLOOD COUNT 3.8 K/mm3 (4.0-10.0)
[2019-01-30 07:02] LABS: INR 1.12 (0.83-1.09); PROTHROMBIN TIME (PATIENT) 13.2 SEC (9.7-13.0)
[2019-01-30 07:23] LABS: ALBUMIN 3.2 g/dl (3.4-5.0); BILIRUBIN,TOTAL 0.3 mg/dL (0.2-1); CREATININE 0.8 mg/dL (0.55-1.3); MAGNESIUM 2.2 mg/dL (1.8-2.4); PHOSPHOROUS 3.7 mg/dL (2.5-4.9); POTASSIUM 3.9 mmol/L (3.5-5.1); TOT PROT 6.5 g/dl (6.4-8.2)
[2019-01-30] MEDS ORDERED: FERROUS SO4 325 MG TABLET (FP) PO SCH (10:00)
[2019-01-30] MEDS ORDERED: ENOXAPARIN NA (PORCINE) 40 MG/0.4 ML DISP.SYRIN SQ SCH (10:00)
[2019-01-30] MEDS ORDERED: APIXABAN 5 MG TABLET PO SCH (10:00)
--- NOTE | 2019-01-30 10:35 | PN ---
Teaching Attending Note Name of Resident: Casper Mancia ATTENDING PHYSICIAN STATEMENT I saw and evaluated the patient. I reviewed the resident's note and discussed the case with the resident. I agree with the resident's findings and plan as documented with exceptions below. SUBJECTIVE: Patient seen and examined, feels well, wants to go home. OBJECTIVE: Vital Signs Period Temp Pulse Resp BP Sys/[place] Pulse Ox Last 24 Hr 98.2 F-98.4 F 79-133 17-20 108-112/70-78 83-100 Intake & Output 01/27/19 01/28/19 01/29/19 01/30/19 23:59 23:59 23:59 23:59 Weight 250 lb General: lying in bed stretcher, no acute distress Neuro: AAOx3, speech normal , facial symmetry, tongue midlines, EOMI, PERRL, power 5/5 sensation intact and symmetric to light touch, no pronator drift, DTR b/l symmetric, toes down going, cranial nerves II-XII intact Chest: No rales or wheezing Abdomen:soft, obese, NT Extremities: no edema Home Medications Medication Instructions Recorded Apixaban [Eliquis] 5 mg PO BID 02/01/18 Ferrous Sulfate [Iron] 325 mg PO Q2D 01/12/19 Nortriptyline HCl [Pamelor -] 25 mg PO HS 01/30/19 Active Medications Acetaminophen (Tylenol -) 650 mg PO Q4H PRN PRN Reason: PAIN LEVEL 6-10 Apixaban (Eliquis -) 5 mg PO BID [facility] Atorvastatin Calcium (Lipitor -) 80 mg PO [facility] Last Admin: 01/30/19 03:19 Dose: 80 mg Ferrous Sulfate (Feosol -) 325 mg PO Q2D@1000 ISAIAH Sodium Chloride (Normal Saline -) 1,000 mls @ 125 mls/hr IV ASDIR ISAIAH Last Admin: 01/30/19 03:19 Dose: 125 mls/hr Nortriptyline HCl (Pamelor -) 25 mg PO HS [facility] Laboratory Results - last 24 hr 01/29/19 01/29/19 01/29/19 23:17 23:17 23:17 WBC 5.3 RBC 3.84 Hgb 12.0 Hct 35.9 MCV 93.4 MCH 31.1 MCHC 33.3 RDW 12.1 Plt Count 237 MPV 8.7 Absolute Neuts (auto) 3.0 Neutrophils % 55.8 Lymphocytes % 32.7 D Monocytes % 10.2 Eosinophils % 0.9 Basophils % 0.4 Nucleated RBC % 0 PT with INR 13.30 H INR 1.13 H Sodium 138 Potassium 3.6 Chloride 107 Carbon Dioxide 24 Anion Gap 6 L BUN 14 Creatinine 1.1 Est GFR (CKD-EPI)AfAm 76.39 Est GFR (CKD-EPI)NonAf 65.91 Random Glucose 94 Hemoglobin A1c % Calcium 9.0 Phosphorus Magnesium Total Bilirubin 0.2 AST 15 ALT 40 Alkaline Phosphatase 90 Creatine Kinase 124 Troponin I < 0.02 Total Protein 7.7 Albumin 3.8 Triglycerides 100 Cholesterol 182 Total LDL Cholesterol 99 HDL Cholesterol 49 TSH Urine Color Urine Appearance Urine pH Ur Specific [place] Urine Protein Urine Glucose (UA) Urine Ketones Urine Blood Urine Nitrite Urine Bilirubin Urine Urobilinogen Ur Leukocyte Esterase Urine WBC (Auto) Urine RBC (Auto) Urine Casts (Auto) U Epithel Cells (Auto) Urine Bacteria (Auto) Urine HCG, Qual Blood Type Antibody Screen 01/30/19 01/30/19 01/30/19 00:00 00:59 03:42 WBC RBC Hgb Hct MCV MCH MCHC RDW Plt Count MPV Absolute Neuts (auto) Neutrophils % Lymphocytes % Monocytes % Eosinophils % Basophils % Nucleated RBC % PT with INR INR Sodium Potassium Chloride Carbon Dioxide Anion Gap BUN Creatinine Est GFR (CKD-EPI)AfAm Est GFR (CKD-EPI)NonAf Random Glucose Hemoglobin A1c % Calcium Phosphorus Magnesium Total Bilirubin AST ALT Alkaline Phosphatase Creatine Kinase Troponin I Total Protein Albumin Triglycerides Cholesterol Total LDL Cholesterol HDL Cholesterol TSH Urine Color Yellow Urine Appearance Clear Urine pH 6.5 Ur Specific [place] 1.006 L Urine Protein Negative Urine Glucose (UA) Negative Urine Ketones Negative Urine Blood 1+ H Urine Nitrite Negative Urine Bilirubin Negative Urine Urobilinogen 0.2 Ur Leukocyte Esterase Negative Urine WBC (Auto) 2 Urine RBC (Auto) 2 Urine Casts (Auto) 0 U Epithel Cells (Auto) 2.1 Urine Bacteria (Auto) 81.6 Urine HCG, Qual Negative Blood Type B NEGATIVE Antibody Screen Negative 01/30/19 01/30/19 01/30/19 06:20 06:20 06:20 WBC 3.8 L RBC 3.46 L Hgb 10.9 Hct 32.2 L MCV 92.9 MCH 31.4 MCHC 33.7 RDW 12.2 Plt Count 228 MPV 8.8 Absolute Neuts (auto) 1.8 Neutrophils % 47.7 Lymphocytes % 40.2 H D Monocytes % 10.7 H Eosinophils % 1.0 Basophils % 0.4 Nucleated RBC % 0 PT with INR 13.20 H INR 1.12 H Sodium 140 Potassium 3.9 Chloride 109 H Carbon Dioxide 26 Anion Gap 5 L BUN 10 Creatinine 0.8 Est GFR (CKD-EPI)AfAm 112.27 Est GFR (CKD-EPI)NonAf 96.87 Random Glucose 89 Hemoglobin A1c % Calcium 8.0 L Phosphorus 3.7 Magnesium 2.2 Total Bilirubin 0.3 AST 16 ALT 32 Alkaline Phosphatase 79 Creatine Kinase Troponin I Total Protein 6.5 Albumin 3.2 L Triglycerides 52 Cholesterol 147 Total LDL Cholesterol 93 HDL Cholesterol 48 TSH 1.68 Urine Color Urine Appearance Urine pH Ur Specific [place] Urine Protein Urine Glucose (UA) Urine Ketones Urine Blood Urine Nitrite Urine Bilirubin Urine Urobilinogen Ur Leukocyte Esterase Urine WBC (Auto) Urine RBC (Auto) Urine Casts (Auto) U Epithel Cells (Auto) Urine Bacteria (Auto) Urine HCG, Qual Blood Type Antibody Screen 01/30/19 06:20 WBC RBC Hgb Hct MCV MCH MCHC RDW Plt Count MPV Absolute Neuts (auto) Neutrophils % Lymphocytes % Monocytes % Eosinophils % Basophils % Nucleated RBC % PT with INR INR Sodium Potassium Chloride Carbon Dioxide Anion Gap BUN Creatinine Est GFR (CKD-EPI)AfAm Est GFR (CKD-EPI)NonAf Random Glucose Hemoglobin A1c % 4.9 Calcium Phosphorus Magnesium Total Bilirubin AST ALT Alkaline Phosphatase Creatine Kinase Troponin I Total Protein Albumin Triglycerides Cholesterol Total LDL Cholesterol HDL Cholesterol TSH Urine Color Urine Appearance Urine pH Ur Specific [place] Urine Protein Urine Glucose (UA) Urine Ketones Urine Blood Urine Nitrite Urine Bilirubin Urine Urobilinogen Ur Leukocyte Esterase Urine WBC (Auto) Urine RBC (Auto) Urine Casts (Auto) U Epithel Cells (Auto) Urine Bacteria (Auto) Urine HCG, Qual Blood Type Antibody Screen CT brain results reviewed ASSESSMENT AND PLAN: 33 yof with PMHx of Ischemic CVA on eliquis (reports 1.5 years ago), severe anxiety, depression comes in with what she describes as 'panic attack' and ED notes suggestive of altered speech -Generalized tingling+/- altered speech -h/o Ischemic CVA on eliquis -Depression -Anxiety/Panic attacks plan: Patient describes her episode as 'panic attack'. reports having generalized tingling, feels her speech could have noted altered given her panic attack. Eager to go home. Adamantly refuses MRI. Neurological exam non focal currently. Will repeat CT brain for now. Discussed with Dr. Wylie who is patient's neurologist. Patient with h/o CVA, was smoker on OCP. Has outpatient cardiology follow up as well. Currently on eliquis. Also recommended statin, but suspects patient not on it given medication intolerance. Agrees with d.c if repeat CT brain neg, no new concerns with outpatient neurology follow up. Patient reports seeing psychiatrist and was advised to increase nortryptiline to 50 mg daily, but did not change given medication concerns. 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 Current neurological exam is non focal and presentation not suspicious for CVA as discussed with patient. Plan for d/c home if repeat CT brain neg with outpatient follow up. Discussed with patient in detail, all questions answered. Care co=ordinated with neurology.
--- NOTE | 2019-01-30 11:27 | EKG ---
Test Reason : Blood Pressure : / mmHG Vent. Rate : 096 BPM Atrial Rate : 096 BPM P-R Int : 176 ms QRS Dur : 088 ms QT Int : 356 ms P-R-T Axes : 058 025 035 degrees QTc Int : 449 ms NORMAL SINUS RHYTHM POSSIBLE LEFT ATRIAL ENLARGEMENT BORDERLINE ECG WHEN COMPARED WITH ECG OF 02-FEB-2018 11:03, NO SIGNIFICANT CHANGE WAS FOUND Confirmed by Sam Gonzalez MD ([id number]) on 01/30/2019 11:27:28 AM Referred By: Confirmed By:Sam Gonzalez MD
--- NOTE | 2019-01-30 11:30 | DS ---
Physical Exam: SUBJECTIVE: Patient seen and examined at bedside. Feels back to her usual self. Feels as if she had an anxiety attack and her presenting symptoms are what she normally gets with her anxiety/panic attacks. No complaints currently. OBJECTIVE: Vital Signs Temperature 98.4 F 01/30/19 07:24 Pulse Rate 80 01/30/19 07:24 Respiratory Rate 17 01/30/19 07:24 Blood Pressure 108/73 01/30/19 07:24 O2 Sat by Pulse Oximetry (%) 98 01/30/19 07:24 PHYSICAL EXAM GENERAL: The patient is awake, alert, and fully oriented, in no acute distress. EYES: extraocular movements intact, sclera anicteric, conjunctiva clear. ENT: oropharynx clear without exudates, moist mucous membranes. NECK: Trachea midline, full range of motion, supple. LUNGS: Breath sounds equal, clear to auscultation bilaterally. HEART: Regular rate and rhythm, S1, S2 ABDOMEN: Soft, nontender, nondistended, normoactive bowel sounds NEUROLOGICAL: Cranial nerves II through XII intact. Normal speech, gait not observed. 5/5 UE and LE strength. No pronator drift. PSYCH: Normal mood, normal affect. SKIN: Warm, dry LABS Laboratory Results - last 24 hr 01/29/19 01/29/19 01/29/19 23:17 23:17 23:17 WBC 5.3 RBC 3.84 Hgb 12.0 Hct 35.9 MCV 93.4 MCH 31.1 MCHC 33.3 RDW 12.1 Plt Count 237 MPV 8.7 Absolute Neuts (auto) 3.0 Neutrophils % 55.8 Lymphocytes % 32.7 D Monocytes % 10.2 Eosinophils % 0.9 Basophils % 0.4 Nucleated RBC % 0 PT with INR 13.30 H INR 1.13 H Sodium 138 Potassium 3.6 Chloride 107 Carbon Dioxide 24 Anion Gap 6 L BUN 14 Creatinine 1.1 Est GFR (CKD-EPI)AfAm 76.39 Est GFR (CKD-EPI)NonAf 65.91 Random Glucose 94 Hemoglobin A1c % Calcium 9.0 Phosphorus Magnesium Total Bilirubin 0.2 AST 15 ALT 40 Alkaline Phosphatase 90 Creatine Kinase 124 Troponin I < 0.02 Total Protein 7.7 Albumin 3.8 Triglycerides 100 Cholesterol 182 Total LDL Cholesterol 99 HDL Cholesterol 49 TSH Urine Color Urine Appearance Urine pH Ur Specific [place] Urine Protein Urine Glucose (UA) Urine Ketones Urine Blood Urine Nitrite Urine Bilirubin Urine Urobilinogen Ur Leukocyte Esterase Urine WBC (Auto) Urine RBC (Auto) Urine Casts (Auto) U Epithel Cells (Auto) Urine Bacteria (Auto) Urine HCG, Qual Blood Type Antibody Screen 01/30/19 01/30/19 01/30/19 00:00 00:59 03:42 WBC RBC Hgb Hct MCV MCH MCHC RDW Plt Count MPV Absolute Neuts (auto) Neutrophils % Lymphocytes % Monocytes % Eosinophils % Basophils % Nucleated RBC % PT with INR INR Sodium Potassium Chloride Carbon Dioxide Anion Gap BUN Creatinine Est GFR (CKD-EPI)AfAm Est GFR (CKD-EPI)NonAf Random Glucose Hemoglobin A1c % Calcium Phosphorus Magnesium Total Bilirubin AST ALT Alkaline Phosphatase Creatine Kinase Troponin I Total Protein Albumin Triglycerides Cholesterol Total LDL Cholesterol HDL Cholesterol TSH Urine Color Yellow Urine Appearance Clear Urine pH 6.5 Ur Specific [place] 1.006 L Urine Protein Negative Urine Glucose (UA) Negative Urine Ketones Negative Urine Blood 1+ H Urine Nitrite Negative Urine Bilirubin Negative Urine Urobilinogen 0.2 Ur Leukocyte Esterase Negative Urine WBC (Auto) 2 Urine RBC (Auto) 2 Urine Casts (Auto) 0 U Epithel Cells (Auto) 2.1 Urine Bacteria (Auto) 81.6 Urine HCG, Qual Negative Blood Type B NEGATIVE Antibody Screen Negative 01/30/19 01/30/19 01/30/19 06:20 06:20 06:20 WBC 3.8 L RBC 3.46 L Hgb 10.9 Hct 32.2 L MCV 92.9 MCH 31.4 MCHC 33.7 RDW 12.2 Plt Count 228 MPV 8.8 Absolute Neuts (auto) 1.8 Neutrophils % 47.7 Lymphocytes % 40.2 H D Monocytes % 10.7 H Eosinophils % 1.0 Basophils % 0.4 Nucleated RBC % 0 PT with INR 13.20 H INR 1.12 H Sodium 140 Potassium 3.9 Chloride 109 H Carbon Dioxide 26 Anion Gap 5 L BUN 10 Creatinine 0.8 Est GFR (CKD-EPI)AfAm 112.27 Est GFR (CKD-EPI)NonAf 96.87 Random Glucose 89 Hemoglobin A1c % Calcium 8.0 L Phosphorus 3.7 Magnesium 2.2 Total Bilirubin 0.3 AST 16 ALT 32 Alkaline Phosphatase 79 Creatine Kinase Troponin I Total Protein 6.5 Albumin 3.2 L Triglycerides 52 Cholesterol 147 Total LDL Cholesterol 93 HDL Cholesterol 48 TSH 1.68 Urine Color Urine Appearance Urine pH Ur Specific [place] Urine Protein Urine Glucose (UA) Urine Ketones Urine Blood Urine Nitrite Urine Bilirubin Urine Urobilinogen Ur Leukocyte Esterase Urine WBC (Auto) Urine RBC (Auto) Urine Casts (Auto) U Epithel Cells (Auto) Urine Bacteria (Auto) Urine HCG, Qual Blood Type Antibody Screen 01/30/19 06:20 WBC RBC Hgb Hct MCV MCH MCHC RDW Plt Count MPV Absolute Neuts (auto) Neutrophils % Lymphocytes % Monocytes % Eosinophils % Basophils % Nucleated RBC % PT with INR INR Sodium Potassium Chloride Carbon Dioxide Anion Gap BUN Creatinine Est GFR (CKD-EPI)AfAm Est GFR (CKD-EPI)NonAf Random Glucose Hemoglobin A1c % 4.9 Calcium Phosphorus Magnesium Total Bilirubin AST ALT Alkaline Phosphatase Creatine Kinase Troponin I Total Protein Albumin Triglycerides Cholesterol Total LDL Cholesterol HDL Cholesterol TSH Urine Color Urine Appearance Urine pH Ur Specific [place] Urine Protein Urine Glucose (UA) Urine Ketones Urine Blood Urine Nitrite Urine Bilirubin Urine Urobilinogen Ur Leukocyte Esterase Urine WBC (Auto) Urine RBC (Auto) Urine Casts (Auto) U Epithel Cells (Auto) Urine Bacteria (Auto) Urine HCG, Qual Blood Type Antibody Screen HOSPITAL COURSE: Date of Admission:01/29/19 Date of Discharge: 01/30/19 33 y/o F w/PMH of CVA 2yrs ago (on eliquis), depression, anxiety presented with an unusual feeling and tingling sensation throughout her body. She was unsure why she was started on AC. Initial head CT was negative for acute pathology. Pt had MRI ordered but she refused. Repeat head CT was done in it's place which was also negative. Carotid U/S was done which did not show significant hemodynamic flow stenoses Neurological physical exam done in the AM was nonfocal and intact. She is to continue her meds as they were prescribed prior to coming to the hospital. Smoking cessation strongly advised. She is to f/u with PCP (at clinic at [address] [place] [address]) within 1 week, to f/u with neurologist (Dr. Wylie) within 1 week and to f/u with psych within 1 week as well. Minutes to complete discharge: 45 Discharge Summary Reason For Visit: CEREBROVASCULAR ACCIDENT Condition: Stable - Instructions Diet, Activity, Other Instructions: You were monitored in the hospital for a possible stroke. Your imaging here did not find evidence of a new of a stroke. Please follow the directions listed below: MEDICATIONS: -continue taking your medications as they were prescribed to you before coming to the hospital. -no changes have been made to your medical therapy. FOLLOW UPS: -follow up with your primary care doctor within 1 week. Please discuss using a statin with your doctor. -follow up with your neurologist within 1 week. -follow up with your psychiatrist within 1 week. INSTRUCTIONS: -If you develop signs or symptoms of stroke call 911 immediately. Some signs include facial droop, slurring speech, arm and/or leg weakness. -If you develop fevers, chills, chest pain, or worsening of your presenting symptoms come back to the ER. Disposition: HOME - Home Medications Comprehensive Discharge Medication List: Ambulatory Orders Apixaban [Eliquis] 5 mg PO BID 02/01/18 Ferrous Sulfate [Iron] 325 mg PO Q2D 01/12/19 Nortriptyline HCl [Pamelor -] 25 mg PO HS 01/30/19 This patient is new to me today: Yes Date on this admission: 01/30/19 Emergency Visit: Yes ED Registration Date: 01/29/19 Care time: The patient presented to the Emergency Department on the above date and was hospitalized for further evaluation of their emergent condition. Critical Care patient: No - Discharge Referral Referred to [facility] Med P.C.: No
[2019-01-30 13:35] VITALS: BP 124/78; PULSE 63; TEMP 98.5
[2019-01-30] MEDS ORDERED: NORTRIPTYLINE HCL 25 MG CAPSULE PO SCH (22:00)
== END 2019-01-30 16:05 | disposition home or self-care (01) ==
LOC: JER 22:43 → JERBED 23:29 → INTOOBSV 23:29
PROVIDERS: ADMIT Internal Medicine; ATTEND Hospitalist
PROC: 3E0337Z Introduction of Electrolytic and Water Balance Substance into Peripheral Vein, Percutaneous Approach (ICD-10-PCS; principal; 2019-01-29)
DX: I63.9 Cerebral infarction, unspecified (principal); R20.2 Paresthesia of skin; F41.9 Anxiety disorder, unspecified; E66.9 Obesity, unspecified; Z68.38 Body mass index [BMI] 38.0-38.9, adult; Z86.73 Personal history of transient ischemic attack (TIA), and cerebral infarction without residual deficits; Z79.01 Long term (current) use of anticoagulants
CPT/HCPCS: 36415; 70450-TC; 80053; 80061; 81003; 82465; 82550; 83036; 83718; 83721; 83735; 84100; 84443; 84478; 84484; 84703; 85025; 85610; 86850; 86900; 86901; 93005; 93010; 93880-TC; 99285-25; G0378; J7030

== ENCOUNTER 2019-03-23 11:26 | Emergency (ER) | payer OTHER ==
[2019-03-23 11:36] VITALS: BP 106/70; PULSE 79; TEMP 97.9; BMI 38.0
--- NOTE | 2019-03-23 13:04 | PDOC ---
History of Present Illness - General Chief Complaint: Psychiatric Stated Complaint: ANXIETY Time Seen by Provider: 03/23/19 12:01 History Source: Patient Exam Limitations: No Limitations Past History - Past Medical History Allergies/Adverse Reactions: Allergies Allergy/AdvReac Type Severity Reaction Status Date / Time No Known Drug Allergies AdvReac Verified 03/23/19 11:33 Home Medications: Ambulatory Orders Apixaban [Eliquis] 5 mg PO BID 02/01/18 Ferrous Sulfate [Iron] 325 mg PO Q2D 01/12/19 Nortriptyline HCl [Pamelor -] 25 mg PO HS 01/30/19 Anemia: No Asthma: No Cancer: No Cardiac Disorders: No CVA: Yes (06/2017) COPD: No CHF: No DVT: No Dementia: No Diabetes: No GI Disorders: No Disorders: No HTN: No Hypercholesterolemia: No Liver Disease: No Psychiatric Problems: Yes (panic attack , anxiety) Seizures: No Thyroid Disease: No - Surgical History Appendectomy: No Cholecystectomy: No Neurologic Surgery: No - Reproductive History (#): 4 Para: 3 Ectopic : Yes - Immunization History Immunization Up to Date: No (flu) - Suicide/Smoking/Psychosocial Hx Smoking Status: No Smoking History: Current every day smoker Have you smoked in the past 12 months: No Number of Cigarettes Smoked Daily: 0 Information on smoking cessation initiated: No Hx Alcohol Use: No Drug/Substance Use Hx: No Substance Use Type: None Hx Substance Use Treatment: No *Physical Exam - Vital Signs Last Vital Signs Temp Pulse Resp BP Pulse Ox 97.9 F 79 18 106/70 100 03/23/19 11:34 03/23/19 11:34 03/23/19 11:34 03/23/19 11:34 03/23/19 11:34 - Physical Exam General Appearance: Yes: Appropriately Dressed. No: Apparent Distress, Disheveled, Alcohol on Breath, Intoxicated Respiratory/Chest: positive: Lungs Clear, Normal Breath Sounds. negative: Respiratory Distress Cardiovascular: positive: Regular Rhythm, Regular Rate, S1, S2. negative: Murmur Vascular Pulses: Dorsalis-Pedis (R): 0 Gastrointestinal/Abdominal: positive: Normal Bowel Sounds, Soft. negative: Tender, Distended, Guarding, Rebound Neurologic: positive: roller staker II-XII NML intact, Fully Oriented, Alert, Other ( crying at times during interview). negative: Facial Droop, Confused, Disoriented Medical Decision Making - Medical Decision Making 33 y/o F hx of CVA (2 years ago, on Eliquis), anemia, anxiety presents with increasing anxiety from yesterday. Patient is nervous as states she is scared she may have another stroke again; she is currently getting outpatient testing to determine cause of her stroke; she is worried she may possibly have atrial fibrillation. Currently takes Klonopin 0.5 mg daily PRN for anxiety, but states it is not helping as much. Was on Nortriptyline in the past as well, but it was stopped 2 months ago as she didn't like how it made her feel. Patient has psychiatrist, Dr. Guzman, whom she last saw 1 month ago. Denies fever, abd pain , n/v/d, weakness/numbness/tingling/speech/gait changes, S/H ideation Sxs likely related to anxiety Discussed with patient methods to help control anxiety Spoke to patient's psychiatrist, Dr. Guzman, who recommends increasing Klonopin to 0.5 TID PRN (patient already has enough Klonopin); he wants to also have her resume the Notriptyline (states other psych meds are contraindicated as they interfere with the Plavix; however, patient does not want to restart that medication) Per Dr. Ramirez, patient can see him on 03/27 at 4 PM 03/23/19 12:56 *DC/Admit/Observation/Transfer Diagnosis at time of Disposition: Anxiety - Discharge Dispostion Disposition: HOME Condition at time of disposition: Stable Decision to Admit order: No - Referrals Referrals: Samuel Recio [Primary Care Provider] - - Patient Instructions Printed Discharge Instructions: DI for Anxiety -- Adult Additional Instructions: Thank you for choosing [facility]. It was a pleasure taking care of you. As discussed, you may increase your Klonopin to 0.5 mg three times a day as needed Please follow-up with your psychiatrist on 03/27 at 4 PM for further evaluation Return to the Emergency Department if your symptoms worsen or persist, have thoughts of hurting yourself or others or other concerning symptoms. - Post Discharge Activity
== END 2019-03-23 13:12 | disposition home or self-care (01) ==
LOC: JERFT 11:26
DX: F06.4 Anxiety disorder due to known physiological condition (principal); Z86.73 Personal history of transient ischemic attack (TIA), and cerebral infarction without residual deficits
CPT/HCPCS: 99281-25

== ENCOUNTER 2019-03-24 03:12 | Emergency (ER) | payer OTHER ==
[2019-03-24 03:46] VITALS: BP 100/67; PULSE 87; TEMP 98; BMI 38.0
--- NOTE | 2019-03-24 03:51 | PDOC ---
Attending Attestation - Resident Resident Name: Jesu Perez - ED Attending Attestation I have performed the following: I have examined & evaluated the patient, The case was reviewed & discussed with the resident, I agree w/resident's findings & plan - HPI HPI: 03/24/19 04:39 Pt comes with swollen ankles bilaterally. - Physicial Exam PE: 03/24/19 04:39 Agree with resident exam. However, pt has STS of her lateral ankles bilat. Pt has been wearing her flip flops with no arch support, and she now has swollen ankles. She has no pitting edema. Rest of exam is normal. - Medical Decision Making 03/24/19 04:39 labs sent. Pt will follow with PMD if all is normal. 03/24/19 04:52 CBC normal. EKG normal 03/24/19 05:50 All labs are normal. She is stable to go home. Heart Score/ECG Review - ECG Intrepretation Rhythm: Regular Rhythm - Five Points Five Points: Normal - QRS Poor R Wave Progression: No Q Wave Present: No - ST and T Early Repolarization: No Non Specific ST-T Wave changes: No Flattened T Waves: No Prolonged Q-T Interval: No - ECG Impressions Normal ECG: Yes Non-specific ST Elevation: No Ischemic Changes: No Bradycardia: No
--- NOTE | 2019-03-24 04:07 | PDOC ---
History of Present Illness <Alisson Rodgers - Last Filed: 03/24/19 04:52> - General History Source: Patient Exam Limitations: No Limitations - History of Present Illness Initial Comments: Jessica Blanco is a 33 yo obese F w a pmh sig for ischemic stroke two years ago on elliquis, anxiety, and panic attacks who presents to the [facility] ER via private auto because she believes both of her ankles have been swollen since yesterday. She states the only new medication she has taken is motrin for her period cramps. Patient denies having experienced any chest pain, SOB, difficulty breathing, dyspnea on exertion, leg pain, difficulty walking, headache, nausea, vomiting, dysuria, frequency, urgency, neck pain, back pain, wheezing, or leg swelling above the ankle. LMP: Started yesterday PCP: Samuel Recio PSH: C-sections Social Hx: Smokes marijuana. Denies alcohol, cigarettes, or illicit drug usage Allergies: NKA, NKDA <Jesu Perez - Last Filed: 03/24/19 05:01> - General Chief Complaint: Edema Stated Complaint: SWELLING/ANKLES Time Seen by Provider: 03/24/19 03:43 Past History <Alisson Rodgers - Last Filed: 03/24/19 04:52> - Past Medical History Anemia: No Asthma: No Cancer: No Cardiac Disorders: No CVA: Yes (06/2017) COPD: No CHF: No DVT: No Dementia: No Diabetes: No GI Disorders: No Disorders: No HTN: No Hypercholesterolemia: No Liver Disease: No Psychiatric Problems: Yes (panic attack , anxiety) Seizures: No Thyroid Disease: No - Surgical History Appendectomy: No Cholecystectomy: No Neurologic Surgery: No - Reproductive History (#): 4 Para: 3 Ectopic : Yes - Immunization History Immunization Up to Date: No (flu) - Suicide/Smoking/Psychosocial Hx Smoking Status: No Smoking History: Never smoked Have you smoked in the past 12 months: No Number of Cigarettes Smoked Daily: 0 Information on smoking cessation initiated: No Hx Alcohol Use: No Drug/Substance Use Hx: No Substance Use Type: None Hx Substance Use Treatment: No <Jesu Perez - Last Filed: 03/24/19 05:01> - Past Medical History Allergies/Adverse Reactions: Allergies Allergy/AdvReac Type Severity Reaction Status Date / Time No Known Drug Allergies AdvReac Verified 03/24/19 03:41 Home Medications: Ambulatory Orders Apixaban [Eliquis] 5 mg PO BID 02/01/18 Ferrous Sulfate [Iron] 325 mg PO Q2D 01/12/19 Nortriptyline HCl [Pamelor -] 25 mg PO HS 01/30/19 Review of Systems - Review of Systems Able to Perform ROS?: Yes Comments:: CONSTITUTIONAL: Absent: fever, chills, diaphoresis, generalized weakness, malaise, loss of appetite HEENT: Absent: rhinorrhea, nasal congestion, throat pain, throat swelling, difficulty swallowing, mouth swelling, ear pain, eye pain, visual Changes CARDIOVASCULAR: Present: Peripheral edema Absent: chest pain, syncope, palpitations, irregular heart rate, lightheadedness RESPIRATORY: Absent: cough, shortness of breath, dyspnea with exertion, orthopnea, wheezing, stridor, hemoptysis GASTROINTESTINAL: Absent: abdominal pain, abdominal distension, nausea, vomiting, diarrhea, constipation, melena, hematochezia GENITOURINARY: Absent: dysuria, frequency, urgency, hesitancy, hematuria, flank pain, genital pain MUSCULOSKELETAL: Absent: myalgia, arthralgia, joint swelling SKIN: Absent: rash, itching, pallor HEMATOLOGIC/IMMUNOLOGIC: Absent: easy bleeding, easy bruising, lymphadenopathy, frequent infections ENDOCRINE: Absent: unexplained weight gain, unexplained weight loss, heat intolerance, cold intolerance NEUROLOGIC: Absent: headache, focal weakness or paresthesias, dizziness, unsteady gait, seizure, mental status changes, bladder or bowel incontinence PSYCHIATRIC: Present: Anxiety Absent: depression, suicidal or homicidal ideation, hallucinations. <Jesu Perez - Last Filed: 03/24/19 05:01> *Physical Exam - Vital Signs Last Vital Signs Temp Pulse Resp BP Pulse Ox 98.0 F 87 20 100/67 99 03/24/19 03:20 03/24/19 03:20 03/24/19 03:20 03/24/19 03:20 03/24/19 03:20 <Alisson Rodgers - Last Filed: 03/24/19 04:52> - Vital Signs Last Vital Signs Temp Pulse Resp BP Pulse Ox 98.0 F 87 20 100/67 99 03/24/19 03:20 03/24/19 03:20 03/24/19 03:20 03/24/19 03:20 03/24/19 03:20 - Physical Exam Comments: GENERAL: Well developed, well nourished. Awake and alert. No acute distress. HEENT: Normocephalic, atraumatic. PERRLA, EOMI. No conjunctival pallor. Sclera are non- icteric. Moist mucous membranes. Oropharynx is clear. NECK: Supple. Full ROM. No JVD. No lymphadenopathy. CARDIOVASCULAR: Regular rate and rhythm. No murmurs, rubs, or gallops. Distal pulses are 2+ and symmetric. PULMONARY: No evidence of respiratory distress. Lungs clear to auscultation bilaterally. No wheezing, rales or rhonchi. ABDOMINAL: Soft. Non-tender. Non-distended. No rebound or guarding. No organomegaly. Normoactive bowel sounds. MUSCULOSKELETAL Normal range of motion at all joints. No bony deformities or tenderness. No CVA tenderness. EXTREMITIES: No cyanosis. No clubbing. No edema. No calf tenderness. SKIN: Warm and dry. Normal capillary refill. No rashes. No jaundice. NEUROLOGICAL: Alert, awake, appropriate. Cranial nerves 2-12 intact. No deficits to light touch in face, upper extremities and lower extremities. No motor deficits in the in face, upper extremities and lower extremities. Normal speech. Gait is normal without ataxia. PSYCHIATRIC: Cooperative. Good eye contact. Appropriate mood and affect. <Jesu Perez - Last Filed: 03/24/19 05:01> ED Treatment Course - LABORATORY CBC & Chemistry Diagram: 03/24/19 04:08 03/24/19 04:08 - ADDITIONAL ORDERS Additional order review: Laboratory Results 03/24/19 03/24/19 03/24/19 04:15 04:08 04:08 Sodium 142 Potassium 4.1 Chloride 110 H Carbon Dioxide 25 Anion Gap 7 L BUN 14.0 Creatinine 0.8 Est GFR (CKD-EPI)AfAm 112.27 Est GFR (CKD-EPI)NonAf 96.87 Random Glucose 87 Calcium 8.7 Total Bilirubin 0.1 L AST 14 L ALT 21 Alkaline Phosphatase 83 Troponin I < 0.02 B-Natriuretic Peptide Cancelled 51.0 Total Protein 7.5 Albumin 3.6 Serum , Qual Negative 03/24/19 04:08 RBC 3.93 MCV 93.3 MCHC 33.3 RDW 12.7 MPV 9.5 Neutrophils % 53.4 Lymphocytes % 37.4 Monocytes % 7.5 Eosinophils % 1.1 Basophils % 0.6 <Alisson Rodgers - Last Filed: 03/24/19 04:52> - LABORATORY CBC & Chemistry Diagram: 03/24/19 04:08 03/24/19 04:08 <Jesu Perez - Last Filed: 03/24/19 05:01> Medical Decision Making - Medical Decision Making Jessica Blanco is a 33 yo obese F w a pmh sig for ischemic stroke two years ago on elliquis, anxiety, and panic attacks who presents to the [facility] ER via private auto because she believes both of her ankles have been swollen since yesterday. She states the only new medication she has taken is motrin for her period cramps. Patient denies having experienced any chest pain, SOB, difficulty breathing, dyspnea on exertion, leg pain, difficulty walking, headache, nausea, vomiting, dysuria, frequency, urgency, neck pain, back pain, wheezing, or leg swelling above the ankle. Vital Signs Temp Pulse Resp BP Pulse Ox 98.0 F 87 20 100/67 99 03/24/19 03:20 03/24/19 03:20 03/24/19 03:20 03/24/19 03:20 03/24/19 03:20 MDM: Patient presents w CC of b/l ankle swelling and essentially no other symptoms. Will obtain labs to rule out heart failure, but patient is very well appearing and I have extremely low suspicion for any other pathological process. Plan: Labs, Re-assessment Labs: Normal and unremarkable. Normal BNP. Re-assessment: Patient eels well and is no longer concerned about her ankle swelling after re-assurance. Disposition: Home with PCP follow up. Compression stockings and leg elevation advised. <Jesu Perez - Last Filed: 03/24/19 05:01> *DC/Admit/Observation/Transfer - Discharge Dispostion Decision to Admit order: No <Alisson Rodgers - Last Filed: 03/24/19 04:52> - Discharge Dispostion Decision to Admit order: No <Jesu Perez - Last Filed: 03/24/19 05:01> Diagnosis at time of Disposition: Swollen ankles - Discharge Dispostion Disposition: HOME Condition at time of disposition: Stable - Patient Instructions Printed Discharge Instructions: Flat Foot, DI for Flat Feet Additional Instructions: You came into the Er with swollen ankles. We looked at your blood and found that your heart is working well and you have no evidence of heart failure. Apply compression stockings as needed to prevent leg swelling. Elevate your legs if necessary. Please call up your primary care doctor to schedule a follow up appointment in the next 3 to 5 days to make sure you are being taken care of and getting better. Come back to the ER immediately if your pain worsens or you have any other new or worsening concerns. Thank you for coming to the [facility] ER. We hope you feel better soon! Print Language: IVORIAN
[2019-03-24 04:27] LABS: HEMOGLOBIN 12.2 GM/dL (10.7-15.3); MEAN PLT VOLUME 9.5 fl (7.5-11.1); MONO % 7.5 % (3.8-10.2)
[2019-03-24 04:42] LABS: BASO % 0.6 % (0-2.0); EOS % 1.1 % (0-4.5); HEMATOCRIT 36.7 % (32.4-45.2); LYMPH % 37.4 % (8-40); MCH 31.1 pg (25.7-33.7); MCHC 33.3 g/dl (32.0-36.0); MEAN CELL VOLUME 93.3 fl (80-96); NEUT % 53.4 % (42.8-82.8); PLATELET COUNT 243 K/MM3 (134-434); RBC 3.93 M/mm3 (3.60-5.2); RDW 12.7 % (11.6-15.6); WHITE BLOOD COUNT 5.6 K/mm3 (4.0-10.0)
[2019-03-24 04:52] LABS: ALBUMIN 3.6 g/dl (3.4-5.0); ALK PHOS 83 U/L (45-117); ANION GAP 7 MMOL/L (8-16); BILIRUBIN,TOTAL 0.1 mg/dL (0.2-1); CALCIUM 8.7 mg/dL (8.5-10.1); CHLORIDE 110 mmol/L (98-107); CO2 25 mmol/L (21-32); CREATININE 0.8 mg/dL (0.55-1.3); GLUCOSE,RANDOM 87 mg/dL (74-106); POTASSIUM 4.1 mmol/L (3.5-5.1); SGOT/AST 14 U/L (15-37); SGPT/ALT 21 U/L (13-61); SODIUM 142 mmol/L (136-145); TOT PROT 7.5 g/dl (6.4-8.2)
--- NOTE | 2019-03-25 00:01 | EKG ---
Test Reason : Blood Pressure : / mmHG Vent. Rate : 073 BPM Atrial Rate : 073 BPM P-R Int : 188 ms QRS Dur : 084 ms QT Int : 376 ms P-R-T Axes : 055 014 028 degrees QTc Int : 414 ms NORMAL SINUS RHYTHM NORMAL ECG WHEN COMPARED WITH ECG OF 29-JAN-2019 23:53, NO SIGNIFICANT CHANGE WAS FOUND Confirmed by CHELLY TRAYLOR MD ([id number]) on 03/25/2019 12:00:57 AM Referred By: Confirmed By:CHELLY TRAYLOR MD
== END 2019-03-24 05:22 | disposition home or self-care (01) ==
LOC: JER 03:12
DX: M79.89 Other specified soft tissue disorders (principal); E66.9 Obesity, unspecified; Z68.38 Body mass index [BMI] 38.0-38.9, adult
CPT/HCPCS: 36415; 80053; 83880; 84484; 84703; 85025; 93005; 93010; 99282-25

== ENCOUNTER 2019-04-06 22:52 | Emergency (ER) | payer OTHER ==
[2019-04-06 23:01] VITALS: BP 109/71; PULSE 80; TEMP 98.4; BMI 38.0
--- NOTE | 2019-04-06 23:56 | PDOC ---
History of Present Illness - General Chief Complaint: Weakness Stated Complaint: FEELING SICK Time Seen by Provider: 04/06/19 23:55 Past History - Past Medical History Allergies/Adverse Reactions: Allergies Allergy/AdvReac Type Severity Reaction Status Date / Time No Known Drug Allergies AdvReac Verified 03/24/19 03:41 Home Medications: Ambulatory Orders Apixaban [Eliquis] 5 mg PO BID 02/01/18 Ferrous Sulfate [Iron] 325 mg PO Q2D 01/12/19 Nortriptyline HCl [Pamelor -] 25 mg PO HS 01/30/19 Anemia: No Asthma: No Cancer: No Cardiac Disorders: No CVA: Yes (06/2017) COPD: No CHF: No DVT: No Dementia: No Diabetes: No GI Disorders: No Disorders: No HTN: No Hypercholesterolemia: No Liver Disease: No Psychiatric Problems: Yes (panic attack , anxiety) Seizures: No Thyroid Disease: No - Surgical History Appendectomy: No Cholecystectomy: No Neurologic Surgery: No - Reproductive History (#): 4 Para: 3 Ectopic : Yes - Immunization History Immunization Up to Date: No (flu) - Suicide/Smoking/Psychosocial Hx Smoking Status: No Smoking History: Never smoked Have you smoked in the past 12 months: No Number of Cigarettes Smoked Daily: 0 Hx Alcohol Use: No Drug/Substance Use Hx: Yes (Marijuana) Substance Use Type: None Hx Substance Use Treatment: No *Physical Exam - Vital Signs Last Vital Signs Temp Pulse Resp BP Pulse Ox 98.4 F 80 19 109/71 99 04/06/19 22:58 04/06/19 22:58 04/06/19 22:58 04/06/19 22:58 04/06/19 22:58 ED Treatment Course - LABORATORY CBC & Chemistry Diagram: 04/07/19 01:10 04/07/19 01:10 Medical Decision Making - Medical Decision Making 04/06/19 23:57 HPI Jessica Blanco is a 33 yo obese F w a pmh sig for ischemic stroke two years ago on eliquis, anxiety, panic attacks and recent ILR implant on 04/03/19 who presents with headache for 2 days located frontally and described as pressure-like. The patient also reports 3 days of brown vaginal spotting. The patient did not take any medication for her pain but took a clonipin at 2200 just prior to arrival with improvement of headache. The patient reports that this does not feel similar to her prior stroke. ROS GENERAL/CONSTITUTIONAL: No fever or chills. No weakness. HEAD, EYES, EARS, NOSE AND THROAT: No change in vision. No ear pain or discharge. No sore throat. CARDIOVASCULAR: No chest pain or shortness of breath RESPIRATORY: No cough, wheezing, or hemoptysis. GASTROINTESTINAL: No nausea, vomiting, diarrhea or constipation. GENITOURINARY: No dysuria, frequency, or change in urination. MUSCULOSKELETAL: No joint or muscle swelling or pain. No neck or back pain. NEUROLOGIC: No vertigo, loss of consciousness, or change in strength/sensation. PE GENERAL: Awake, alert, and fully oriented, in no acute distress HEAD: No signs of trauma, normocephalic, atraumatic EYES: PERRLA, EOMI, sclera anicteric, conjunctiva clear ENT: oropharynx clear without exudates. Moist mucosa NECK: Normal ROM, supple LUNGS: No distress, speaks full sentences, clear to auscultation bilaterally HEART: Regular rate and rhythm, normal S1 and S2, no murmurs, rubs or gallops, peripheral pulses normal and equal bilaterally. ABDOMEN: Soft, nontender, normoactive bowel sounds. No guarding, no rebound. No masses EXTREMITIES : Normal inspection, Normal range of motion, no edema. No clubbing or cyanosis. NEUROLOGICAL: Cranial nerves II through XII grossly intact. Normal speech, no focal sensorimotor deficits SKIN: Warm, Dry, normal turgor, no rashes or lesions noted PELVIC: closed cervical os, normal physiologic fluid, no cervical motion tenderness JASEN Blanco is a 33 yo obese F w a pmh sig for ischemic stroke two years ago on eliquis, anxiety, panic attacks and recent ILR implant on 04/03/19 who presents with headache for 2 days located frontally and described as pressure-like. DDX including but not limited to: migraine vs cluster headache r.o W/U: - cbc, cmp, coags, beta TX: - reglan ED Course: Patient signed out to resident Dr. Jorge Azevedo, PGY2 Emergency Medicine *DC/Admit/Observation/Transfer Diagnosis at time of Disposition: Headache - Referrals Referrals: Samuel Recio [Primary Care Provider] - - Patient Instructions - Post Discharge Activity
[2019-04-07] MEDS ORDERED: SODIUM CHLORIDE 1,000 ML IV SCH
[2019-04-07] MEDS ORDERED: METOCLOPRAMIDE HCL INJECTION 10 MG/2 ML VIAL IVPUSH ONE (00:44)
--- NOTE | 2019-04-07 01:04 | PDOC ---
Documentation entered by Briana Avila SCRIBE, acting as scribe for Lavelle Saenz MD. Lavelle Saenz MD: This documentation has been prepared by the Margarita butler Adrianna, SCRIBE, under my direction and personally reviewed by me in its entirety. I confirm that the documentation accurately reflects all work, treatment, procedures, and medical decision making performed by me. Attending Attestation - Resident Resident Name: Leslie Azevedo - HPI HPI: The patient is a 33 year old female, with a significant PMH of presumed thromboembolic stroke (on Eliquis), obesity, and anxiety, who presents to the ED for evaluation of headache for 2 days. Patient describes the headache as a pressure that is felt over the frontal aspect of the forehead. Patient denies her current symptoms feeling similar to her previous stroke. She additionally reports 3 days of brown, vaginal spotting. Denies fever, chills, nausea, vomit, diarrhea, constipation, chest pain, shortness of breath, dizzines, dysuria, frequency, urgency and hematuria. Allergies: NKA, NKDA Past surgical history: C-sections Social history: Smokes marijuana. Denies EtOH, tobacco, or illicit drug use - Physicial Exam PE: 04/07/19 01:01 lying in stretcher nad speaking in full sentences atraumatic perrl supple neck mmm rrr s1 s2 no mrg ctab soft nt nd A&O x3, resident care associate 2-12 intact, FNF intact, steady gait - Medical Decision Making 04/07/19 01:02 Prior ischemic stroke (being worked up for A fib) on eliquis, loop recorder placed last week headache normal neuro exam, no focal deficits cbc chem 20 reglan fluids reassess
[2019-04-07] MEDS ORDERED: METOCLOPRAMIDE HCL INJECTION 10 MG/2 ML VIAL ONE (01:20)
[2019-04-07 01:28] LABS: BASO % 0.7 % (0-2.0); EOS % 0.7 % (0-4.5); HEMATOCRIT 35.3 % (32.4-45.2); LYMPH % 40.7 % (8-40); MCH 31.3 pg (25.7-33.7); MEAN CELL VOLUME 92.3 fl (80-96); MEAN PLT VOLUME 9.2 fl (7.5-11.1); MONO % 6.8 % (3.8-10.2); NEUT % 51.1 % (42.8-82.8); PLATELET COUNT 227 K/MM3 (134-434); RBC 3.83 M/mm3 (3.60-5.2); RDW 12.6 % (11.6-15.6); WHITE BLOOD COUNT 5.9 K/mm3 (4.0-10.0)
[2019-04-07 01:57] LABS: INR 1.1 (0.83-1.09)
[2019-04-07 02:04] LABS: ALBUMIN 3.9 g/dl (3.4-5.0); BILIRUBIN,TOTAL 0.3 mg/dL (0.2-1); BLOOD UREA NITROGEN 12.3 mg/dL (7-18); CALCIUM 8.9 mg/dL (8.5-10.1); CREATININE 0.8 mg/dL (0.55-1.3); POTASSIUM 4.2 mmol/L (3.5-5.1); TOT PROT 7.9 g/dl (6.4-8.2)
--- NOTE | 2019-04-07 02:49 | PDOC ---
*Physical Exam - Vital Signs Last Vital Signs Temp Pulse Resp BP Pulse Ox 98.4 F 80 19 109/71 99 04/06/19 22:58 04/06/19 22:58 04/06/19 22:58 04/06/19 22:58 04/06/19 22:58 ED Treatment Course - LABORATORY CBC & Chemistry Diagram: 04/07/19 01:10 04/07/19 01:10 - ADDITIONAL ORDERS Additional order review: Laboratory Results 04/07/19 04/07/19 04/07/19 01:10 01:10 01:10 PT with INR INR PTT (Actin FS) 34.4 Sodium 140 Potassium 4.2 Chloride 107 Carbon Dioxide 25 Anion Gap 8 BUN 12.3 Creatinine 0.8 Est GFR (CKD-EPI)AfAm 112.27 Est GFR (CKD-EPI)NonAf 96.87 Random Glucose 85 Calcium 8.9 Total Bilirubin 0.3 AST 24 ALT 29 Alkaline Phosphatase 92 Total Protein 7.9 Albumin 3.9 Beta HCG, Quant < 1.0 04/07/19 00:54 PT with INR 13.00 INR 1.10 H PTT (Actin FS) Sodium Potassium Chloride Carbon Dioxide Anion Gap BUN Creatinine Est GFR (CKD-EPI)AfAm Est GFR (CKD-EPI)NonAf Random Glucose Calcium Total Bilirubin AST ALT Alkaline Phosphatase Total Protein Albumin Beta HCG, Quant 04/07/19 01:10 RBC 3.83 MCV 92.3 MCHC 34.0 RDW 12.6 MPV 9.2 Neutrophils % 51.1 Lymphocytes % 40.7 H Monocytes % 6.8 Eosinophils % 0.7 Basophils % 0.7 - Medications Given in the ED: ED Medications Discontinued Medications Generic Name Dose Route Start Last Admin Trade Name Freq PRN Reason Stop Dose Admin Metoclopramide HCl 10 mg 04/07/19 00:44 04/07/19 01:56 Reglan Injection - IVPUSH 04/07/19 00:45 10 mg ONCE ONE Administration Medical Decision Making - Medical Decision Making 04/07/19 02:46 Sign out received from Dr. Erazo On reassessment, pt is feeling well and comfortable to go Reports ENT appointment scheduled for end of this month Labs without signs of infection or metabolic derangement, Coags wnl Dispo: Home *DC/Admit/Observation/Transfer Diagnosis at time of Disposition: Headache Qualifiers: Headache type: unspecified Headache chronicity pattern: episodic headache Intractability: not intractable Qualified Code(s): R51 - Headache - Discharge Dispostion Disposition: HOME Condition at time of disposition: Improved Decision to Admit order: No - Referrals Referrals: Samuel Recio [Primary Care Provider] - - Patient Instructions Printed Discharge Instructions: DI for Migraine - Post Discharge Activity
== END 2019-04-07 03:07 | disposition home or self-care (01) ==
LOC: JER 22:52
PROC: 3E033GC Introduction of Other Therapeutic Substance into Peripheral Vein, Percutaneous Approach (ICD-10-PCS; principal; 2019-04-06)
DX: R51 Headache (principal); F41.9 Anxiety disorder, unspecified; Z86.73 Personal history of transient ischemic attack (TIA), and cerebral infarction without residual deficits; Z79.01 Long term (current) use of anticoagulants
CPT/HCPCS: 36415; 80053; 84702; 85025; 85610; 85730; 96374; 99283-25; J7030

== ENCOUNTER 2019-06-02 15:59 | Emergency (ER) | payer OTHER ==
[2019-06-02 16:09] VITALS: BP 111/75; PULSE 85; TEMP 98.4; BMI 37.8
[2019-06-02] MEDS ORDERED: ACETAMINOPHEN 325 MG TABLET (FP) PO ONE ×2 (16:22→16:25)
--- NOTE | 2019-06-02 16:25 | PDOC ---
History of Present Illness - General Chief Complaint: Pain, Acute Stated Complaint: NECK/SHOULDER PAIN Time Seen by Provider: 06/02/19 16:12 History Source: Patient (Right sided neck vasquez X 3 days) - History of Present Illness Associated Symptoms: reports: denies symptoms, chest pain, fever/chills, nausea/ vomiting Past History - Travel Traveled outside of the country in the last 30 days: No - Past Medical History Allergies/Adverse Reactions: Allergies Allergy/AdvReac Type Severity Reaction Status Date / Time No Known Drug Allergies AdvReac Verified 03/24/19 03:41 Home Medications: Ambulatory Orders Apixaban [Eliquis] 5 mg PO BID 02/01/18 Ferrous Sulfate [Iron] 325 mg PO Q2D 01/12/19 Nortriptyline HCl [Pamelor -] 25 mg PO HS 01/30/19 Cyclobenzaprine HCl [Flexeril -] 10 mg PO TID #21 tablet 06/02/19 Lidocaine 5% Patch [Lidoderm Patch -] 1 patch TP DAILY #7 patch 06/02/19 Anemia: No Asthma: No Cancer: No Cardiac Disorders: No CVA: Yes (06/2017) COPD: No CHF: No DVT: No Dementia: No Diabetes: No GI Disorders: No Disorders: No HTN: No Hypercholesterolemia: No Liver Disease: No Psychiatric Problems: Yes (panic attack , anxiety) Seizures: No Thyroid Disease: No - Surgical History Appendectomy: No Cholecystectomy: No Neurologic Surgery: No - Reproductive History (#): 4 Para: 3 Ectopic : Yes - Immunization History Immunization Up to Date: No (flu) - Psycho Social/Smoking Cessation Hx Smoking Status: No Smoking History: Never smoked Have you smoked in the past 12 months: No Number of Cigarettes Smoked Daily: 0 Information on smoking cessation initiated: No Hx Alcohol Use: No Drug/Substance Use Hx: No Substance Use Type: None Hx Substance Use Treatment: No Review of Systems - Review of Systems Able to Perform ROS?: Yes Is the patient limited Hungarian proficient: No Constitutional: No: Chills, Fever Cardiac (ROS): No: Chest Pain, Lightheadedness, Palpitations ABD/GI: No: Nausea, Vomiting Neurological: No: Headache, Numbness, Tingling, Weakness, Dizziness *Physical Exam - Vital Signs Last Vital Signs Temp Pulse Resp BP Pulse Ox 98.4 F 85 18 111/75 98 06/02/19 16:06 06/02/19 16:06 06/02/19 16:06 06/02/19 16:06 06/02/19 16:06 - Physical Exam General Appearance: Yes: Nourished Respiratory/Chest: positive: Lungs Clear, Normal Breath Sounds Cardiovascular: positive: Regular Rhythm, Regular Rate, S1, S2 Musculoskeletal: positive: Normal Inspection, CVA Tenderness, Muscle Spasm (R SCM muscle/trapezius, FROM in neck ), Other (FROm in shoudler) Extremity: positive: Normal Capillary Refill, Normal Inspection, Normal Range of Motion Neurologic: positive: iv technician II-XII NML intact, Fully Oriented, Alert, Normal Mood/ Affect, Normal Response, Motor Strength /5 Medical Decision Making - Medical Decision Making 06/02/19 16:22 R sided neck vasquez X 3 days + tenderness and spasm along R SCM 06/02/19 16:44 warm compress muscle relaxant Discharge - Discharge Information Problems reviewed: Yes Clinical Impression/Diagnosis: Muscle spasms of neck Clinical Impression/Diagnosis: (Ruled Out): Neck sprain Condition: Stable Disposition: HOME - Admission No - Additional Discharge Information Prescriptions: Cyclobenzaprine HCl [Flexeril -] 10 mg PO TID #21 tablet Lidocaine 5% Patch [Lidoderm Patch -] 1 patch TP DAILY #7 patch Prescription Drug Monitoring Program (I-STOP) results: I-STOP not reviewed - Follow up/Referral Referrals: Samuel Recio [Primary Care Provider] - - Patient Discharge Instructions Additional Instructions: Apply warm compress to area take medication as prescribed return to the ER if worsening symptoms occurs - Post Discharge Activity
[2019-06-02] MEDS ORDERED: ACETAMINOPHEN 325 MG TABLET (FP) ONE (16:26)
== END 2019-06-02 16:32 | disposition home or self-care (01) ==
LOC: JERFT 15:59
DX: M62.838 Other muscle spasm (principal); F41.0 Panic disorder [episodic paroxysmal anxiety]; Z41.9 Encounter for procedure for purposes other than remedying health state, unspecified; Z86.73 Personal history of transient ischemic attack (TIA), and cerebral infarction without residual deficits; Z79.01 Long term (current) use of anticoagulants
CPT/HCPCS: 99282-25

== ENCOUNTER 2019-06-05 18:48 | Emergency (ER) | payer OTHER ==
--- NOTE | 2019-06-05 18:55 | PDOC ---
Rapid Medical Evaluation Time Seen by Provider: 06/05/19 18:53 Medical Evaluation: Allergies Allergy/AdvReac Type Severity Reaction Status Date / Time No Known Drug Allergies AdvReac Verified 03/24/19 03:41 06/05/19 18:53 CC: headache and neck pain PE: B/L SCM spasm Orders: nothing Patient to proceed to ER for evaluation. Discharge Disposition - Diagnosis Muscle spasms of neck - Referrals Referrals: Samuel Recio [Primary Care Provider] - - Patient Instructions - Post Discharge Activity
[2019-06-05 18:57] VITALS: BP 104/77; PULSE 87; TEMP 98.1; BMI 37.8
--- NOTE | 2019-06-05 20:52 | PDOC ---
History of Present Illness - General Chief Complaint: Pain Stated Complaint: NECK PAIN Time Seen by Provider: 06/05/19 18:53 History Source: Patient - History of Present Illness Initial Comments: 06/05/19 20:48 33 year old c/o b/l neck pain radiating to head. patient is c/o headache. patient reports that father had a stroke this past week patient is worried that headache is due to and acute stroke. patient reports that symptom s started yesterday. denies weakness, chest pain , vomiting, abdominal pain, urinary symptoms PMHX: stroke 2016, Currently on eloquis. Past History - Past Medical History Allergies/Adverse Reactions: Allergies Allergy/AdvReac Type Severity Reaction Status Date / Time No Known Drug Allergies AdvReac Verified 03/24/19 03:41 Home Medications: Ambulatory Orders Apixaban [Eliquis] 5 mg PO BID 02/01/18 Ferrous Sulfate [Iron] 325 mg PO Q2D 01/12/19 Nortriptyline HCl [Pamelor -] 25 mg PO HS 01/30/19 Cyclobenzaprine HCl [Flexeril -] 10 mg PO TID #21 tablet 06/02/19 Lidocaine 5% Patch [Lidoderm Patch -] 1 patch TP DAILY #7 patch 06/02/19 Anemia: No Asthma: No Cancer: No Cardiac Disorders: No CVA: Yes (06/2017 X 2) COPD: No CHF: No DVT: No Dementia: No Diabetes: No GI Disorders: No Disorders: No HTN: No Hypercholesterolemia: No Liver Disease: No Psychiatric Problems: Yes (panic attack , anxiety) Seizures: No Thyroid Disease: No - Surgical History Appendectomy: No Cholecystectomy: No Neurologic Surgery: No - Reproductive History (#): 4 Para: 3 Ectopic : Yes - Immunization History Immunization Up to Date: No (flu) - Psycho Social/Smoking Cessation Hx Smoking Status: No Smoking History: Never smoked Have you smoked in the past 12 months: No Number of Cigarettes Smoked Daily: 0 Information on smoking cessation initiated: No Hx Alcohol Use: No Drug/Substance Use Hx: No Substance Use Type: None Hx Substance Use Treatment: No Review of Systems - Review of Systems Able to Perform ROS?: Yes Is the patient limited Mozambican proficient: No Constitutional: No: Symptoms Reported, See HPI, Chills, Diaphoresis, Fever, Loss of Appetite, Malaise, Night Sweats, Weakness, Weight Stable, Unintentional Wgt. Loss, Unexplained wgt Loss, Other *Physical Exam - Vital Signs Last Vital Signs Temp Pulse Resp BP Pulse Ox 98.1 F 87 18 104/77 99 06/05/19 18:54 06/05/19 18:54 06/05/19 18:54 06/05/19 18:54 06/05/19 18:54 - Physical Exam General Appearance: Yes: Appropriately Dressed Respiratory/Chest: positive: Lungs Clear, Normal Breath Sounds Musculoskeletal: positive: Normal Inspection Extremity: positive: Normal Capillary Refill, Normal Inspection, Normal Range of Motion Integumentary: positive: Normal Color, Dry, Warm Neurologic: positive: oil well driller II-XII NML intact, Fully Oriented, Alert, Normal Mood/ Affect, Normal Response, Motor Strength 01/07 Medical Decision Making - Medical Decision Making 06/05/19 22:52 A: headache on eloquis P: CT head: negative pain control patient to follow up with PCP Discharge - Discharge Information Problems reviewed: Yes Clinical Impression/Diagnosis: Muscle spasms of neck Headache Qualifiers: Headache type: unspecified Headache chronicity pattern: acute headache Intractability: not intractable Qualified Code(s): R51 - Headache Condition: Stable Disposition: HOME - Follow up/Referral Referrals: Samuel Recio [Primary Care Provider] - - Patient Discharge Instructions Patient Printed Discharge Instructions: Migraine Headaches (Alternative Therapy ) Additional Instructions: drink plenty of fluids follow up with your doctor as soon as possible. return to the ER for any worsening symptoms - Post Discharge Activity Work/Back to School Note: Back to Work
[2019-06-05] MEDS ORDERED: ACETAMINOPHEN 325 MG TABLET (FP) PO ONE (22:20)
[2019-06-05] MEDS ORDERED: ACETAMINOPHEN 325 MG TABLET (FP) ONE (22:51)
== END 2019-06-05 23:21 | disposition home or self-care (01) ==
LOC: JERFT 18:48
DX: R25.2 Cramp and spasm (principal); R51 Headache; Z79.01 Long term (current) use of anticoagulants; Z86.73 Personal history of transient ischemic attack (TIA), and cerebral infarction without residual deficits; F41.9 Anxiety disorder, unspecified
CPT/HCPCS: 70450-TC; 84703; 99281-25

== ENCOUNTER 2019-06-24 17:34 | Emergency (ER) | payer OTHER ==
[2019-06-24 17:38] VITALS: TEMP 98.1; BMI 38.0
--- NOTE | 2019-06-24 18:20 | PDOC ---
History of Present Illness - General Chief Complaint: Injury Stated Complaint: SICK History Source: Patient Exam Limitations: No Limitations - History of Present Illness Initial Comments: 06/24/19 18:09 Patient is a 33-year-old female with history of CVA on Eloquis, panic attack and anxiety, PFO from childhood not closed, x3, c/o head injury (left side of head) at 2am this morning. Patient states she is on Eliquis from a prior stroke due to her PFO and being on DEPO, and smoking marijuana. Patient states was with friends last night, had a few jello shots, and was laughing vigorously, banged her head on a piece of hard wood. States has a persistent pain 6/10 to the area of the injury but she did not notice any swelling or bruising. Denies nausea, vomiting. States she is usually nauseous from the Eloquis, and if she was nauseous she thought it was due to the medications. LMP 1week ago. PMD: Dr. Doreen Recio PMHX: as above PSOCHX: neg cig, occ etoh, neg drug ALL: NKDA GENERAL/CONSTITUTIONAL: [No fever or chills. No weakness. No weight change.] HEAD, EYES, EARS, NOSE AND THROAT: [No change in vision. No ear pain or discharge. No sore throat.] CARDIOVASCULAR: [No chest pain or shortness of breath.] RESPIRATORY: [No cough, wheezing, or hemoptysis.] GASTROINTESTINAL: [No nausea, vomiting, diarrhea or constipation. No rectal bleeding.] GENITOURINARY: [No dysuria, frequency, or change in urination.] MUSCULOSKELETAL: [No joint or muscle swelling or pain. No neck or back pain.] SKIN AND BREASTS: [No rash or easy bruising.] NEUROLOGIC: [No headache, vertigo, loss of consciousness, or loss of sensation.] PSYCHIATRIC: [(+) depression or anxiety.] ENDOCRINE: [No increased thirst. No abnormal weight change.] HEMATOLOGIC/LYMPHATIC: [(+) anemia, easy bleeding, or history of blood clots.] ALLERGIC/IMMUNOLOGIC: [No hives or skin allergy. No latex allergy.] GENERAL: [The patient is awake, alert, and fully oriented, in no acute distress. ] HEAD: [Normal with no signs of trauma, scalp nontender left parietal.] EYES: [Pupils equal, round and reactive to light, extraocular movements intact, sclera anicteric, conjunctiva clear.] ENT: [Ears normal, nares patent, oropharynx clear without exudates. Moist mucous membranes.] NECK: [Normal range of motion, supple without lymphadenopathy, JVD, or masses.] LUNGS: [Breath sounds equal, clear to auscultation bilaterally. No wheezes, and no crackles.] HEART: [Regular rate and rhythm, normal S1 and S2 without murmur, rub.] ABDOMEN: [Soft, nontender, normoactive bowel sounds. No guarding, no rebound. No masses.] EXTREMITIES: [Normal range of motion, no edema. No clubbing or cyanosis. No cords, erythema, or tenderness.] NEUROLOGICAL: [Cranial nerves II through XII grossly intact. Normal speech, normal gait.] PSYCH: [Normal mood, normal affect.] SKIN: [Warm, Dry, normal turgor, no rashes or lesions noted.] Past History - Past Medical History Allergies/Adverse Reactions: Allergies Allergy/AdvReac Type Severity Reaction Status Date / Time No Known Drug Allergies AdvReac Verified 06/24/19 17:38 Home Medications: Ambulatory Orders Apixaban [Eliquis] 5 mg PO BID 02/01/18 Ferrous Sulfate [Iron] 325 mg PO Q2D 01/12/19 Nortriptyline HCl [Pamelor -] 25 mg PO HS 01/30/19 Cyclobenzaprine HCl [Flexeril -] 10 mg PO TID #21 tablet 06/02/19 Lidocaine 5% Patch [Lidoderm Patch -] 1 patch TP DAILY #7 patch 06/02/19 Anemia: No Asthma: No Cancer: No Cardiac Disorders: No CVA: Yes (06/2017 X 2) COPD: No CHF: No DVT: No Dementia: No Diabetes: No GI Disorders: No Disorders: No HTN: No Hypercholesterolemia: No Liver Disease: No Psychiatric Problems: Yes (panic attack , anxiety) Seizures: No Thyroid Disease: No - Surgical History Appendectomy: No Cholecystectomy: No Neurologic Surgery: No - Reproductive History (#): 4 Para: 3 Ectopic : Yes - Immunization History Immunization Up to Date: No (flu) - Psycho Social/Smoking Cessation Hx Smoking Status: No Smoking History: Never smoked Have you smoked in the past 12 months: No Number of Cigarettes Smoked Daily: 0 Hx Alcohol Use: No Drug/Substance Use Hx: No Substance Use Type: None Hx Substance Use Treatment: No *Physical Exam - Vital Signs Last Vital Signs Temp Pulse Resp BP Pulse Ox 98.1 F 98 H 18 115/73 99 06/24/19 17:35 06/24/19 17:35 06/24/19 17:35 06/24/19 17:35 06/24/19 17:35 ED Treatment Course - RADIOLOGY Radiology Studies Ordered: Category Date Time Status HEAD CT WITH CONTRAST [CT] Stat CT Scan 06/24/19 18:07 Ordered Medical Decision Making - Medical Decision Making 06/24/19 18:09 Patient is a 33-year-old female with history of CVA on Eloquis, panic attack and anxiety, PFO from childhood not closed, x3, c/o head injury (left side of head) at 2am this morning. Patient states she is on Eliquis from a prior stroke due to her PFO and being on DEPO, and smoking marijuana. Patient states was with friends last night, had a few jello shots, and was laughing vigorously, banged her head on a piece of hard wood. States has a persistent pain 6/10 to the area of the injury but she did not notice any swelling or bruising. Denies nausea, vomiting. States she is usually nauseous from the Eloquis, and if she was nauseous she thought it was due to the medications. LMP 1week ago. Patient with close head injury but is on Eliquis CT head Anticipate discharge if negative 06/24/19 20:37 Patient Full Name: DELILAH BAZAN Patient Accession No: [id number] Patient : 1985 Reason for Exam: INJURY Referring Physician: Patient Name: BENI MAZARIEGOS PRELIMINARY REPORT FROM IMAGING DIRECTOR OF PRODUCT MANAGEMENT EXAM: CT brain without contrast DATE: 2019-06-24 19:13:51 IMAGES: 141 HISTORY: injury IMPRESSION: Intracranial hemorrhage: None. Mass effect: None. Brain parenchyma: No acute process seen. One or more of the following dose reduction techniques were used: automated exposure control, adjustment of the mA and/or kV according to patient size, use of iterative reconstructive technique. THIS DOCUMENT HAS BEEN ELECTRONICALLY SIGNED Donavan Hinson MD 06/24/2019 19:32 EST M.D. Please call [facility] [phone] ([phone]) with questions. INTERPRETING RADIOLOGIST: Donavan Hinson MD Electronically Signed: Jun 24, 2019 07:34PM EDT I discussed the physical exam findings, ancillary test results and final diagnoses with the patient. I answered all of the patient's questions. The patient was satisfied with the care received and felt comfortable with the discharge plan and treatment plan. The Patient agrees to follow up with the primary care physician within 24-72 hours. Discharge - Discharge Information Problems reviewed: Yes Clinical Impression/Diagnosis: Closed head injury Qualifiers: Encounter type: initial encounter Qualified Code(s): S09.90XA - Unspecified injury of head, initial encounter Condition: Stable Disposition: HOME - Follow up/Referral Referrals: Samuel Recio [Primary Care Provider] - - Patient Discharge Instructions Patient Printed Discharge Instructions: DI for Closed Head Injury Additional Instructions: Your Discharge Instructions: You must call primary care physician within 24 hours to arrange follow-up. Return to the Emergency Department with any new, persistent or worsening symptoms, for fever, chills, SOB, dizziness or any other concerning changes that may occur. For signs of (which include nausea, vomiting, dizziness, confusion), neurological decompensation you must return to the emergency room immediately. - Post Discharge Activity
[2019-06-24 21:02] VITALS: BP 117/77; PULSE 95
== END 2019-06-24 21:02 | disposition home or self-care (01) ==
LOC: JER 17:34
DX: S09.8XXA Other specified injuries of head, initial encounter (principal); R51 Headache; W22.8XXA Striking against or struck by other objects, initial encounter; Y93.89 Activity, other specified; Y92.89 Other specified places as the place of occurrence of the external cause; Y99.8 Other external cause status; Z86.73 Personal history of transient ischemic attack (TIA), and cerebral infarction without residual deficits; Z79.01 Long term (current) use of anticoagulants; F41.9 Anxiety disorder, unspecified; F41.0 Panic disorder [episodic paroxysmal anxiety]; Q21.1 Atrial septal defect
CPT/HCPCS: 70450-TC; 84703; 99282-25

== ENCOUNTER 2019-07-08 10:30 | Emergency (ER) | payer OTHER ==
[2019-07-08 10:35] VITALS: BP 100/70; PULSE 75; TEMP 98.4; BMI 37.7
--- NOTE | 2019-07-08 10:55 | PDOC ---
History of Present Illness - General Chief Complaint: Sore Throat Stated Complaint: SORE THROAT Time Seen by Provider: 07/08/19 10:42 - History of Present Illness Initial Comments: 07/08/19 10:47 CHIEF COMPLAINT: sore throat HISTORY OF PRESENT ILLNESS: 33 yo F presents to [facility] with sore throat x 2 days. Patient reports that she has been on penicillin for the last few days after a dental procedure and that her throat began to hurt yesterday. She denies any difficulty swallowing own saliva, denies any difficulty speaking or breathing. No recent travel or sick contacts. PAST MEDICAL HISTORY: Denies past medical history FAMILY HISTORY: Denies SOCIAL HISTORY: Denies tobacco, alcohol, illicit drug use. SURGICAL HISTORY: Denies ALLERGIES: No known drug allergies REVIEW OF SYSTEMS General/Constitutional: Denies fever or chills. Denies weakness, weight change. HEENT: Sore throat. Denies change in vision. Denies ear pain or discharge. Cardiovascular: Denies chest pain or shortness of breath. Respiratory: Denies cough, wheezing, or hemoptysis. Gastrointestinal: Denies nausea, vomiting, diarrhea or constipation. Denies rectal bleeding. Genitourinary: Denies dysuria, frequency, or change in urination. Musculoskeletal: Denies joint or muscle swelling or pain. Denies neck or back pain. Skin and breasts: Denies rash or easy bruising. Neurologic: Denies headache, vertigo, loss of consciousness, or loss of sensation. Psychiatric: Denies depression or anxiety. PHYSICAL EXAM General Appearance: Well-appearing, appropriately dressed. No apparent distress , no intoxication. HEENT: Mildly erythematous posterior oropharynx. EOMI, PERRLA, normal ENT inspection, normal voice, TMs normal, pharynx normal. No conjunctival pallor. No photophobia, scleral icterus. Neck: Supple. Trachea midline. No tenderness, rigidity, carotid bruit, stridor , lymphadenopathy, or thyromegaly. Respiratory/Chest: Lungs CTAB. No shortness of breath, chest tenderness, respiratory distress, accessory muscle use. No crackles, rales, rhonchi, stridor , wheezing, dullness Cardiovascular: RRR. S1, S2. No JVD, murmur, bradycardia, tachycardia. Vascular Pulses: Dorsalis-Pedis (R): 2+, Dorsalis-Pedis (L): 2+ Gastrointestinal/Abdominal: Normal bowel sounds. Abdomen soft, non-distended. No tenderness or rebound tenderness. No organomegaly, pulsatile mass, guarding , hernia, hepatomegaly, splenomegaly. Lymphatic: No adenopathy, tenderness. Musculoskeletal/Extremities: Normal inspection. FROM of all extremities, normal capillary refill. Pelvis Stable. No CVA tenderness. No tenderness to extremities, pedal edema, swelling, erythema or deformity. Integumentary: Appropriate color, dry, warm. No cyanosis, erythema, jaundice or rash Neurologic: mechanic II-XII intact. Fully oriented, alert. Appropriate mood/affect. Motor strength 5/5. No appreciable EOM palsy, facial droop or sensory deficit. 07/08/19 11:10 Past History - Past Medical History Allergies/Adverse Reactions: Allergies Allergy/AdvReac Type Severity Reaction Status Date / Time No Known Drug Allergies AdvReac Verified 07/08/19 10:35 Home Medications: Ambulatory Orders Apixaban [Eliquis] 5 mg PO BID 02/01/18 Ferrous Sulfate [Iron] 325 mg PO Q2D 01/12/19 Nortriptyline HCl [Pamelor -] 25 mg PO HS 01/30/19 Cyclobenzaprine HCl [Flexeril -] 10 mg PO TID #21 tablet 06/02/19 Lidocaine 5% Patch [Lidoderm Patch -] 1 patch TP DAILY #7 patch 06/02/19 Amoxicillin/Potassium Clav [Augmentin 875-125 Tablet] 1 each PO BID #14 tablet 07/08/19 Anemia: No Asthma: No Cancer: No Cardiac Disorders: No CVA: Yes (06/2017 X 2) COPD: No CHF: No DVT: No Dementia: No Diabetes: No GI Disorders: No Disorders: No HTN: No Hypercholesterolemia: No Liver Disease: No Psychiatric Problems: Yes (panic attack , anxiety) Seizures: No Thyroid Disease: No - Surgical History Appendectomy: No Cholecystectomy: No Neurologic Surgery: No - Reproductive History (#): 4 Para: 3 Ectopic : Yes - Immunization History Immunization Up to Date: No (flu) - Psycho Social/Smoking Cessation Hx Smoking Status: No Smoking History: Never smoked Have you smoked in the past 12 months: No Number of Cigarettes Smoked Daily: 0 Hx Alcohol Use: No Drug/Substance Use Hx: No Substance Use Type: None Hx Substance Use Treatment: No *Physical Exam - Vital Signs Last Vital Signs Temp Pulse Resp BP Pulse Ox 98.4 F 75 18 100/70 99 07/08/19 10:32 07/08/19 10:32 07/08/19 10:32 07/08/19 10:32 07/08/19 10:32 Medical Decision Making - Medical Decision Making 07/08/19 11:12 33 yo F presents to [facility] with sore throat x 2 days. Patient already on PCN. Will change abx to Augmentin. Advised patient to take medication as prescribed and follow up with PCP next week. Advised patient of signs and symptoms for return to ED. Patient verbalized understanding and agrees to plan. Discharge - Discharge Information Problems reviewed: Yes Clinical Impression/Diagnosis: Pharyngitis Qualifiers: Pharyngitis/tonsillitis etiology: unspecified etiology Qualified Code(s): J02.9 - Acute pharyngitis, unspecified Condition: Stable Disposition: HOME - Admission No - Additional Discharge Information Prescriptions: Amoxicillin/Potassium Clav [Augmentin 875-125 Tablet] 1 each PO BID #14 tablet - Follow up/Referral - Patient Discharge Instructions Patient Printed Discharge Instructions: DI for Pharyngitis/Tonsillopharyngitis -- Adult Additional Instructions: Please discontinue the penicillin that was prescribed to you at your dentist office and start the new medication prescribed today. IF you develop any fever, chills, nausea, vomiting, or diarrhea, please return to the ER. - Post Discharge Activity
== END 2019-07-08 11:07 | disposition home or self-care (01) ==
LOC: JERFT 10:30
DX: J02.9 Acute pharyngitis, unspecified (principal); F41.9 Anxiety disorder, unspecified; F41.0 Panic disorder [episodic paroxysmal anxiety]; Z86.73 Personal history of transient ischemic attack (TIA), and cerebral infarction without residual deficits; Z79.2 Long term (current) use of antibiotics
CPT/HCPCS: 99281-25

== ENCOUNTER 2019-07-28 03:13 | Emergency (ER) | payer OTHER ==
[2019-07-28 03:27] VITALS: BP 113/73; PULSE 86; TEMP 97.3; BMI 37.8
[2019-07-28] MEDS ORDERED: ACETAMINOPHEN 1000 MG/100 ML VIAL (NON FORMULARY) IVPB ONE (03:51)
[2019-07-28] MEDS ORDERED: SODIUM CHLORIDE 1,000 ML IV STA (03:51)
[2019-07-28] MEDS ORDERED: ONDANSETRON 4 MG/2 ML VIAL IVPUSH ONE (03:55)
[2019-07-28] MEDS ORDERED: ACETAMINOPHEN INJECTION 100 ML IVPB ONE (03:55)
--- NOTE | 2019-07-28 04:02 | PDOC ---
History of Present Illness <Alisson Rodgers - Last Filed: 07/28/19 05:35> - General History Source: Patient Exam Limitations: No Limitations - History of Present Illness Initial Comments: Jessica Blanco is a 33 yo obese F w a pm[facility] sig for ischemic stroke two years ago on elliquis, anxiety, and panic attacks who presents to the [facility] ER via private auto because she has been experiencing lower right sided abdominal pain associated with nausea since earlier this morning. The patient endorses nausea but no emesis. She states she also has pain in her right flank and the pain radiates to her groin. She states the pain has been constant in nature. She endorses frequency secondary to excessive hydration but denies dysuria or urgency. She denies having any chest pain, SOB, difficulty breathing, headache, blurry vision, diarhhea, constipation. LMP: finished last week PCP: Samuel Recio PSH: C-sections Social Hx: Smokes marijuana. Denies alcohol, cigarettes, or illicit drug usage Allergies: NKA, NKDA <Jesu Perez - Last Filed: 07/28/19 05:39> - General Chief Complaint: Pain Stated Complaint: ABD PAIN Time Seen by Provider: 07/28/19 03:32 Past History <Alisson Rodgers - Last Filed: 07/28/19 05:35> - Past Medical History Anemia: No Asthma: No Cancer: No Cardiac Disorders: No CVA: Yes (06/2017 X 2) COPD: No CHF: No DVT: No Dementia: No Diabetes: No GI Disorders: No Disorders: No HTN: No Hypercholesterolemia: No Liver Disease: No Psychiatric Problems: Yes (panic attack , anxiety) Seizures: No Thyroid Disease: No - Surgical History Appendectomy: No Cholecystectomy: No Neurologic Surgery: No - Reproductive History (#): 4 Para: 3 Ectopic : Yes - Immunization History Immunization Up to Date: No (flu) - Psycho Social/Smoking Cessation Hx Smoking Status: No Smoking History: Never smoked Have you smoked in the past 12 months: No Number of Cigarettes Smoked Daily: 0 Hx Alcohol Use: No Drug/Substance Use Hx: No Substance Use Type: None Hx Substance Use Treatment: No <Jesu Perez - Last Filed: 07/28/19 05:39> - Past Medical History Allergies/Adverse Reactions: Allergies Allergy/AdvReac Type Severity Reaction Status Date / Time No Known Drug Allergies AdvReac Verified 07/28/19 03:27 Home Medications: Ambulatory Orders Amitriptyline HCl [Elavil -] 25 mg PO DAILY 07/28/19 Apixaban [Eliquis -] 5 mg PO DAILY 07/28/19 Clonazepam [Klonopin] 1 mg PO DAILY 07/28/19 Iron,Carbonyl [Iron Chews] 15 mg PO DAILY 07/28/19 Sulfamethoxazole/Trimethoprim [Bactrim Ds -] 1 tab PO BID #14 tablet 07/28/19 Review of Systems - Review of Systems Able to Perform ROS?: Yes Comments:: CONSTITUTIONAL: Absent: fever, no chills, no fatigue EYES: Absent: visual changes ENT: Absent: ear pain, no sore throat CARDIOVASCULAR: Absent: chest pain, no palpitations RESPIRATORY: Absent: cough, no SOB GI: Present: Abdominal pain, nausea Absent: no vomiting, no constipation, no diarrhea GENITOURINARY: Present: Frequency Absent: dysuria, no hematuria MUSKULOSKELETAL: Present: back pain Absent: no arthralgia, no myalgia SKIN: Absent: rash NEURO: Absent: headache <Jesu Perez - Last Filed: 07/28/19 05:39> *Physical Exam - Vital Signs Last Vital Signs Temp Pulse Resp BP Pulse Ox 97.3 F L 86 20 113/73 100 07/28/19 03:25 07/28/19 03:25 07/28/19 03:25 07/28/19 03:25 07/28/19 03:25 <Alisson Rodgers - Last Filed: 07/28/19 05:35> - Vital Signs Last Vital Signs Temp Pulse Resp BP Pulse Ox 97.3 F L 86 20 113/73 100 07/28/19 03:25 07/28/19 03:25 07/28/19 03:25 07/28/19 03:25 07/28/19 03:25 - Physical Exam Comments: GENERAL: Obese. Well-appearing, well-nourished. No apparent distress. HEENT: Normocephalic, atraumatic. PERRL, EOM intact. CARDIOVASCULAR: Normal S1, S2. Regular rate and rhythm. PULMONARY: No evidence of respiratory distress. Lungs clear to auscultation bilaterally. No wheezing, rales or rhonchi. ABDOMEN: Right sided abdominal tenderness. Normal bowel sounds. No rebound or guarding. PELVIC: There is no adnexal TTP, no CMT, normal vaginal canal, no abnormal discharge. EXTREMITIES: Normal ROM in all four extremities. No gross deformities. SKIN: Warm, dry. No rash NEUROLOGICAL: No focal neurological deficits. <Jesu Perez - Last Filed: 07/28/19 05:39> ED Treatment Course - LABORATORY CBC & Chemistry Diagram: 07/28/19 04:36 07/28/19 04:36 - ADDITIONAL ORDERS Additional order review: Laboratory Results 07/28/19 07/28/19 07/28/19 05:22 04:36 04:36 Sodium Potassium Chloride Carbon Dioxide Anion Gap BUN Creatinine Est GFR (CKD-EPI)AfAm Est GFR (CKD-EPI)NonAf POC Glucometer 102 Random Glucose Lactic Acid 1.1 Calcium Total Bilirubin AST ALT Alkaline Phosphatase Total Protein Albumin Lipase Urine Color Yellow Urine Appearance Cloudy Urine pH 5.5 Ur Specific [place] 1.012 Urine Protein Trace Urine Glucose (UA) Negative Urine Ketones Negative Urine Blood 2+ H Urine Nitrite Positive H Urine Bilirubin Negative Urine Urobilinogen 0.2 Ur Leukocyte Esterase 1+ H Urine WBC (Auto) 35 Urine RBC (Auto) 16 Urine Casts (Auto) 10 U Epithel Cells (Auto) 3.4 Urine Bacteria (Auto) 3393.0 Urine HCG, Qual 07/28/19 07/28/19 04:36 04:36 Sodium Cancelled Potassium Cancelled Chloride Cancelled Carbon Dioxide Cancelled Anion Gap Cancelled BUN Cancelled Creatinine Cancelled Est GFR (CKD-EPI)AfAm Cancelled Est GFR (CKD-EPI)NonAf Cancelled POC Glucometer Random Glucose Cancelled Lactic Acid Calcium Cancelled Total Bilirubin Cancelled AST Cancelled ALT Cancelled Alkaline Phosphatase Cancelled Total Protein Cancelled Albumin Cancelled Lipase Cancelled Urine Color Urine Appearance Urine pH Ur Specific [place] Urine Protein Urine Glucose (UA) Urine Ketones Urine Blood Urine Nitrite Urine Bilirubin Urine Urobilinogen Ur Leukocyte Esterase Urine WBC (Auto) Urine RBC (Auto) Urine Casts (Auto) U Epithel Cells (Auto) Urine Bacteria (Auto) Urine HCG, Qual Negative 07/28/19 07/28/19 05:22 04:36 RBC 3.90 MCV 93.1 MCHC 34.1 RDW 12.7 MPV 8.8 Neutrophils % 61.7 D Lymphocytes % 31.5 D Monocytes % 5.9 Eosinophils % 0.5 Basophils % 0.4 POC Glucometer 102 - Medications Given in the ED: ED Medications Discontinued Medications Generic Name Dose Route Start Last Admin Trade Name Ronal PRN Reason Stop Dose Admin Acetaminophen 1,000 mg 07/28/19 03:51 07/28/19 04:26 Ofirmev Injection - IVPB 07/28/19 03:52 1,000 mg ONCE ONE Administration Sodium Chloride 1,000 mls @ 1,000 mls/hr 07/28/19 03:51 07/28/19 04:26 Normal Saline - IV 07/28/19 04:50 1,000 mls/hr ASDIR STA Administration Ceftriaxone Sodium 1,000 mg/ 50 mls @ 100 mls/hr 07/28/19 04:59 07/28/19 05: 24 Dextrose IVPB 07/28/19 05:28 100 mls/hr ONCE ONE Administration Ondansetron HCl 4 mg 07/28/19 03:55 07/28/19 04:26 Zofran Injection IVPUSH 07/28/19 03:56 4 mg ONCE ONE Administration Trimethoprim/Sulfamethoxazole 1 each 07/28/19 05:07 07/28/19 05:24 Bactrim Ds - PO 07/28/19 05:08 1 each ONCE ONE Administration <Alisson Rodgers - Last Filed: 07/28/19 05:35> - LABORATORY CBC & Chemistry Diagram: 07/28/19 04:36 07/28/19 04:36 <Jesu Perez - Last Filed: 07/28/19 05:39> Medical Decision Making - Medical Decision Making Jessica Blanco is a 33 yo obese F w a [facility] sig for ischemic stroke two years ago on elliquis, anxiety, and panic attacks who presents to the [facility] ER via private auto because she has been experiencing lower right sided abdominal pain associated with nausea since earlier this morning. The patient endorses nausea but no emesis. She states she also has pain in her right flank and the pain radiates to her groin. She states the pain has been constant in nature. She endorses frequency secondary to excessive hydration but denies dysuria or urgency. Vital Signs Temp Pulse Resp BP Pulse Ox 97.3 F L 86 20 113/73 100 07/28/19 03:25 07/28/19 03:25 07/28/19 03:25 07/28/19 03:25 07/28/19 03:25 DDx IBNLT: UTI, Pylo, renal colic, appendicitis, ovarian cyst, ovarian torsion, , ectopic, electrolyte/metabolic disturbance Plan: Labs, urine, IV hydration, analgesia, probable CTAP, re-assess. Labs: Cbc normal Urine: dirty with nitrite and LE - Will treat with Abx - Patient has UTI Disposition: Home with Abx and FU <Jesu Perez - Last Filed: 07/28/19 05:39> Discharge - Discharge Information Problems reviewed: Yes - Admission No <Alisson Rodgers - Last Filed: 07/28/19 05:35> - Discharge Information Problems reviewed: Yes - Admission No <Jesu Perez - Last Filed: 07/28/19 05:39> - Discharge Information Clinical Impression/Diagnosis: UTI (urinary tract infection) Qualifiers: Urinary tract infection type: acute cystitis Hematuria presence: with hematuria Qualified Code(s): N30.01 - Acute cystitis with hematuria Condition: Improved Disposition: HOME - Additional Discharge Information Prescriptions: Sulfamethoxazole/Trimethoprim [Bactrim Ds -] 1 tab PO BID #14 tablet - Follow up/Referral Referrals: Samuel Recio [Primary Care Provider] - - Patient Discharge Instructions Patient Printed Discharge Instructions: DI for Urinary Tract Infection (UTI) Additional Instructions: Please return to the emergency department with any new or worsening symptoms or concerns. Please follow up with your primary care physician within 72 hours. Please take Medication twice per day as directed. If your pain worsens, you get a fever, or have any other new or worsening concerns come back to the ER immediately. Please call up the primary care doctor we are referring you to and schedule a follow up appointment in the next 3 to 5 days to make sure you are feeling well and getting better. Print Language: ESTONIAN - Post Discharge Activity
--- NOTE | 2019-07-28 04:13 | PDOC ---
Attending Attestation - Resident Resident Name: Jesu Perez - ED Attending Attestation I have performed the following: I have examined & evaluated the patient, The case was reviewed & discussed with the resident, I agree w/resident's findings & plan - HPI HPI: 07/28/19 05:33 Pt comes with dysuria and UTI and RLQ pain No fever and she is able to eat. Pt has no flank pain and no hematuria No vag discharge and no STDs Normal menses - Physicial Exam PE: 07/28/19 05:34 Obese; afebrile heart lungs normal. abd soft NT ND Vag exam normal Pt has no flank pain. She has no pitting edema of extremities - Medical Decision Making 07/28/19 05:35 Pt will go home with bactrim DS x 1 week Heart Score/ECG Review - ECG Intrepretation Rhythm: Regular Rhythm - Solen Solen: Normal - P and FL Delta Wave(s) Present: No WPW: No - QRS Poor R Wave Progression: No Q Wave Present: No - ST and T Early Repolarization: No Non Specific ST-T Wave changes: No Flattened T Waves: No - ECG Impressions Normal ECG: Yes Non-specific ST Elevation: No Ischemic Changes: No Bradycardia: No Torsades hawa Pointes: No WPW: No
[2019-07-28 04:54] LABS: BASO % 0.4 % (0-2.0); EOS % 0.5 % (0-4.5); HEMATOCRIT 36.3 % (32.4-45.2); HEMOGLOBIN 12.4 GM/dL (10.7-15.3); LYMPH % 31.5 % (8-40); MCH 31.7 pg (25.7-33.7); MCHC 34.1 g/dl (32.0-36.0); MEAN CELL VOLUME 93.1 fl (80-96); MEAN PLT VOLUME 8.8 fl (7.5-11.1); MONO % 5.9 % (3.8-10.2); NEUT % 61.7 % (42.8-82.8); PLATELET COUNT 256 K/MM3 (134-434); RDW 12.7 % (11.6-15.6); WHITE BLOOD COUNT 6.2 K/mm3 (4.0-10.0)
[2019-07-28 04:58] LABS: EPI CELLS 3.4 /HPF (0-5/HPF); HYALINE CASTS 10 /lpf (0-8); PH,URINE 5.5 (5.0-8.0); URINE APPEARANCE CLOUDY; URINE BILIRUBIN NEGATIVE (NEGATIVE); URINE COLOR YELLOW; URINE GLUCOSE (UA) NEGATIVE (NEGATIVE); URINE KETONE NEGATIVE (NEGATIVE); URINE LEUK ESTERASE 1+ (NEGATIVE); URINE NITRITE POSITIVE (NEGATIVE); URINE PROTEIN TRACE (NEGATIVE); URINE RBC 16 /hpf (0-4); URINE UROBILINOGEN 0.2 mg/dL (0.2-1.0); URINE WBC 35 /hpf (0-5)
[2019-07-28] MEDS ORDERED: CEFTRIAXONE 1,000 MG in DEXTROSE 5%-WATER - 50 ML IVPB ONE (04:59)
[2019-07-28] MEDS ORDERED: SULFAMETHOXAZOLE/TRIMETHOPRIM 800MG/160MG D.S. TABLET PO ONE (05:07)
[2019-07-28] MEDS ORDERED: CEFTRIAXONE 1 GM/50 ML BAG ONE (05:14)
[2019-07-28] MEDS ORDERED: SULFAMETHOXAZOLE/TRIMETHOPRIM 800MG/160MG D.S. TABLET ONE (05:14)
--- NOTE | 2019-07-28 18:00 | EKG ---
Test Reason : Blood Pressure : / mmHG Vent. Rate : 081 BPM Atrial Rate : 081 BPM P-R Int : 170 ms QRS Dur : 082 ms QT Int : 366 ms P-R-T Axes : 042 035 019 degrees QTc Int : 425 ms NORMAL SINUS RHYTHM NORMAL ECG WHEN COMPARED WITH ECG OF 24-MAR-2019 04:07, NO SIGNIFICANT CHANGE WAS FOUND Confirmed by MD Nilsa, Kory ([id number]) on 07/28/2019 6:00:35 PM Referred By: PEPE Confirmed By:Kory Ash MD
== END 2019-07-28 06:13 | disposition home or self-care (01) ==
LOC: JER 03:13
PROC: 3E03329 Introduction of Other Anti-infective into Peripheral Vein, Percutaneous Approach (ICD-10-PCS; principal; 2019-07-28)
PROC: 3E033NZ Introduction of Analgesics, Hypnotics, Sedatives into Peripheral Vein, Percutaneous Approach (ICD-10-PCS; 2019-07-28)
PROC: 3E0337Z Introduction of Electrolytic and Water Balance Substance into Peripheral Vein, Percutaneous Approach (ICD-10-PCS; 2019-07-28)
PROC: 3E033GC Introduction of Other Therapeutic Substance into Peripheral Vein, Percutaneous Approach (ICD-10-PCS; 2019-07-28)
DX: N30.01 Acute cystitis with hematuria (principal); F41.0 Panic disorder [episodic paroxysmal anxiety]; E66.9 Obesity, unspecified; Z68.37 Body mass index [BMI] 37.0-37.9, adult; Z86.73 Personal history of transient ischemic attack (TIA), and cerebral infarction without residual deficits; Z79.01 Long term (current) use of anticoagulants
CPT/HCPCS: 36415; 81003; 82962; 83605; 84703; 85025; 87086; 87186; 93005; 93010; 96361; 96365; 96375; 99283-25; J0131; J7030

== ENCOUNTER 2019-08-04 13:34 | Emergency (ER) | payer OTHER ==
[2019-08-04 14:02] VITALS: BP 112/60; PULSE 87; TEMP 98.1; BMI 37.8
--- NOTE | 2019-08-04 15:00 | PDOC ---
History of Present Illness - General Chief Complaint: Pain Stated Complaint: SORE RT SIDE HEAD Time Seen by Provider: 08/04/19 14:24 - History of Present Illness Initial Comments: 08/04/19 14:59 34-year-old female with a past medical history of TIAs. Presents for evaluation of right sided parietal headache relieved with Tylenol last night however her scalp remains tender. No nausea vomiting or dizziness. She does suffer from migraines but this is a change in character. She is had 2 TIAs in the past and is on anticoagulation. No trauma Past History - Past Medical History Allergies/Adverse Reactions: Allergies Allergy/AdvReac Type Severity Reaction Status Date / Time No Known Drug Allergies AdvReac Verified 07/28/19 03:27 Home Medications: Ambulatory Orders Amitriptyline HCl [Elavil -] 25 mg PO DAILY 07/28/19 Apixaban [Eliquis -] 5 mg PO DAILY 07/28/19 Clonazepam [Klonopin] 1 mg PO DAILY PRN 07/28/19 Iron,Carbonyl [Iron Chews] 15 mg PO DAILY 07/28/19 Anemia: No Asthma: No Cancer: No Cardiac Disorders: No CVA: Yes (06/2017 X 2) COPD: No CHF: No DVT: No Dementia: No Diabetes: No GI Disorders: No Disorders: No HTN: No Hypercholesterolemia: No Liver Disease: No Psychiatric Problems: Yes (panic attack , anxiety) Seizures: No Thyroid Disease: No - Surgical History Appendectomy: No Cholecystectomy: No Neurologic Surgery: No - Reproductive History (#): 4 Para: 3 Ectopic : Yes - Immunization History Immunization Up to Date: No (flu) - Psycho Social/Smoking Cessation Hx Smoking Status: No Smoking History: Smoker current status UNK Have you smoked in the past 12 months: No Number of Cigarettes Smoked Daily: 0 Hx Alcohol Use: No Drug/Substance Use Hx: No Substance Use Type: None Hx Substance Use Treatment: No Review of Systems - Review of Systems Neurological: Yes: Headache *Physical Exam - Vital Signs Last Vital Signs Temp Pulse Resp BP Pulse Ox 98.1 F 87 18 112/60 100 08/04/19 14:00 08/04/19 14:00 08/04/19 14:00 08/04/19 14:00 08/04/19 14:00 - Physical Exam 08/04/19 14:59 GENERAL: The patient is awake, alert, and fully oriented, in no acute distress. HEAD: Normal with no signs of trauma. EYES: sclera anicteric, conjunctiva clear. ENT: Ears normal NECK: Normal range of motion LUNGS: Breath sounds equal, clear to auscultation bilaterally. No wheezes, and no crackles. HEART: S1 and S2 without murmur, rub or gallop. ABDOMEN: Soft, nontender, normoactive bowel sounds. No guarding, no rebound. No masses. EXTREMITIES: Normal range of motion, no edema. No clubbing or cyanosis. No cords, erythema, or tenderness. NEUROLOGICAL: Cranial nerves II through XII grossly intact. Normal speech, normal gait. PSYCH: Normal mood, normal affect. SKIN: Warm, Dry, normal turgor, no rashes or lesions noted. ED Treatment Course - RADIOLOGY Radiology Studies Ordered: Category Date Time Status HEAD CT WITHOUT CONTRAST [CT] Stat CT Scan 08/04/19 14:58 Ordered Medical Decision Making - Medical Decision Making 08/04/19 16:38 CAT scan negative most likely migraine variant we will have patient follow-up with neurology Discharge - Discharge Information Problems reviewed: Yes Clinical Impression/Diagnosis: Headache Condition: Stable Disposition: HOME - Admission No - Follow up/Referral Referrals: Dannie Garland MD [Staff Physician] - - Patient Discharge Instructions Patient Printed Discharge Instructions: DI for Migraine Additional Instructions: Tylenol as directed for pain. Return to the emergency room for worsening symptoms. Your CAT scan today was normal please without fail follow-up with neurology in 1 to 2 days for further evaluation and treatment options and return to the emergency room should symptoms worsen. - Post Discharge Activity
[2019-08-04] MEDS ORDERED: ACETAMINOPHEN 500 MG TABLET (FP) PO ONE (15:55)
[2019-08-04] MEDS ORDERED: ACETAMINOPHEN 500 MG TABLET (FP) ONE (16:57)
== END 2019-08-04 17:00 | disposition home or self-care (01) ==
LOC: JERFT 13:34
DX: R51 Headache (principal); F41.9 Anxiety disorder, unspecified; F41.0 Panic disorder [episodic paroxysmal anxiety]; Z86.73 Personal history of transient ischemic attack (TIA), and cerebral infarction without residual deficits; Z79.01 Long term (current) use of anticoagulants
CPT/HCPCS: 70450-TC; 99281-25

== ENCOUNTER 2019-08-04 18:33 | Emergency (ER) | payer OTHER ==
[2019-08-04 18:41] VITALS: BP 120/62; PULSE 102; TEMP 97.9; BMI 37.8
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
== END 2019-08-04 22:03 | disposition home or self-care (01) ==
LOC: JER 18:33 → JERFT 18:33
DX: S02.2XXA Fracture of nasal bones, initial encounter for closed fracture (principal); Y04.2XXA Assault by strike against or bumped into by another person, initial encounter; Y93.89 Activity, other specified; Y92.038 Other place in apartment as the place of occurrence of the external cause; Y99.8 Other external cause status; Y07.9 Unspecified perpetrator of maltreatment and neglect; F41.0 Panic disorder [episodic paroxysmal anxiety]; F41.9 Anxiety disorder, unspecified; Z86.73 Personal history of transient ischemic attack (TIA), and cerebral infarction without residual deficits; Z79.01 Long term (current) use of anticoagulants
CPT/HCPCS: 70450-TC; 70486-TC; 99281-25

== ENCOUNTER 2019-08-09 02:21 | Emergency (ER) | payer OTHER ==
--- NOTE | 2019-08-09 02:31 | PDOC ---
History of Present Illness - General Stated Complaint: LEFT FOOT PAIN Time Seen by Provider: 08/09/19 02:29 - History of Present Illness Initial Comments: 08/09/19 02:34 The patient is a 34 year old female with a history of CVA who presents for evaluation of left foot and ankle pain following a fall. The patient reports that she experienced a trip and fall earlier today while descending stairs and fell onto her left ankle with pain. She denies any head trauma or LOC. She reports that she has minimally ambulated since the fall due to pain prompting her presentation to the ED for further evaluation. She otherwise denies headache, fevers, chills, SOB, chest pain, nausea, vomiting, abdominal pain, numbness, tingling, or weakness. Past History - Past Medical History Allergies/Adverse Reactions: Allergies Allergy/AdvReac Type Severity Reaction Status Date / Time No Known Drug Allergies AdvReac Verified 08/09/19 02:33 Home Medications: Ambulatory Orders Amitriptyline HCl [Elavil -] 25 mg PO DAILY 07/28/19 Apixaban [Eliquis -] 5 mg PO DAILY 07/28/19 Clonazepam [Klonopin] 1 mg PO DAILY PRN 07/28/19 Iron,Carbonyl [Iron Chews] 15 mg PO DAILY 07/28/19 Anemia: No Asthma: No Cancer: No Cardiac Disorders: No CVA: Yes (06/2017 X 2) COPD: No CHF: No DVT: No Dementia: No Diabetes: No GI Disorders: No Disorders: No HTN: No Hypercholesterolemia: No Liver Disease: No Psychiatric Problems: Yes (panic attack , anxiety) Seizures: No Thyroid Disease: No - Surgical History Appendectomy: No Cholecystectomy: No Neurologic Surgery: No - Reproductive History (#): 4 Para: 3 Ectopic : Yes - Immunization History Immunization Up to Date: No (flu) - Psycho Social/Smoking Cessation Hx Smoking Status: No Smoking History: Never smoked Have you smoked in the past 12 months: No Number of Cigarettes Smoked Daily: 0 Hx Alcohol Use: No Drug/Substance Use Hx: No Substance Use Type: None Hx Substance Use Treatment: No Review of Systems - Review of Systems Comments:: 08/09/19 02:35 Constitutional: No fevers, chills, fatigue, malaise HEENT: No Rhinorrhea, nasal congestion, visual changes Cardiovascular: No chest pain, syncope, palpitations, lightheadedness Respiratory: No Cough, SOB, Hemoptysis, Gastrointestinal: No Abdominal pain, Nausea, Vomiting, Constipation, Diarrhea, Melena Genitourinary: No Dysuria, Frequency, Urgency, Hesitancy, Hematuria, Flank pain Musculoskeletal: Left ankle pain. No Myalgia, arthralgia Skin: No rashes, itching, bruising, pallor Neurologic: No Headache, Dizziness, Numbness, Weakness, or Tingling Psychiatric: No Hallucinations. No SI or HI *Physical Exam - Physical Exam 08/09/19 02:36 General Appearance: Nourished. No Apparent Distress HEENT: EOMI, ANURADHA. No Pharyngeal Erythema, Tonsillar Exudate, Tonsillar Erythema Neck: No Cervical Lymphadenopathy Respiratory/Chest: Lungs Clear, Normal Breath Sounds. No Crackles, Rales, Rhonchi, Wheezing Cardiovascular: Regular Rhythm, Regular Rate. No Murmur, Gallops, Rubs Gastrointestinal/Abdominal: Normal Bowel Sounds, Soft. No Guarding, Rebound, Tenderness Musculoskeletal: No CVA Tenderness Extremity: Edema to the lateral aspect of the left ankle with tenderness to palpation. 2+ dp pulses bilaterally. Sensation to light touch and temperature intact distally. 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 Procedures - Splinting Splint Location: Left: Finger, Right: Ankle Splint Type: Yes: Posterior Post-Proc Neuro Vasc Exam: normal Obed Bandage: yes, 4" Complications: No ED Treatment Course - RADIOLOGY Radiology Studies Ordered: Category Date Time Status ANKLE & FOOT-LEFT* [RAD] Stat Radiology 08/09/19 02:30 Ordered KNEE 3 POS-LEFT [RAD] Stat Radiology 08/09/19 02:30 Ordered LEG TIB/FIB-LEFT [RAD] Stat Radiology 08/09/19 02:30 Ordered Medical Decision Making - Medical Decision Making 08/09/19 02:45 The patient is a 34 year old female with a history of CVA who presents for evaluation of left foot and ankle pain following a fall. Given the patient's history and physical exam, we will obtain plain films to evaluate further. We will continue to monitor and reassess while here in the ED. 08/09/19 04:11 Plain films do not demonstrate any acute process as preliminarily read by our combination presser radiologist. We will place the patient in a splint for comfort and provide crutches. We are comfortable discharging the patient home in stable condition with orthopedic follow up. Patient and family made aware of impression and plan, return precautions discussed including but not limited to worsening pain or symptoms, fevers, or signs of infection, chest pain, respiratory distress, inability to tolerate oral intake, dehydration, syncope, or neurologic changes. The patient is to follow up with PMD and specialist as recommended within 1 week, follow up information provided and the patient will call for an appointment. The patient is to take medications as instructed for duration of time and continue with supportive care, avoid triggers and precipitants. Patient is safe for outpatient follow-up. Discharge - Discharge Information Problems reviewed: Yes Clinical Impression/Diagnosis: Ankle pain, left Qualifiers: Chronicity: acute Qualified Code(s): M25.572 - Pain in left ankle and joints of left foot Condition: Stable Disposition: HOME - Admission No - Follow up/Referral Referrals: Bill Leos DO [Staff Physician] - - Patient Discharge Instructions Patient Printed Discharge Instructions: DI for Ankle Sprain, How to Take Care of Your Splint Additional Instructions: 1) Please follow-up with your primary care doctor in the next 2-3 days. Please call tomorrow to schedule a follow up appointment. If you cannot follow up with your doctor within 1 week please return to the Emergency Department for any urgent issues. 2) Your imaging results were normal here in the ER. 3) If you have any worsening of symptoms or any other concerns, please return to the ER immediately. Return if worsening symptoms including fevers, headache, vomiting, visual or hearing disturbances, abdominal pain, chest pain, shortness of breath, syncope, dehydration, inability to take things by mouth/vomiting, altered mental status, or worsening concerning symptoms. 4) You have been placed in a splint. You may use tylenol and motrin at home to help manage your pain as needed. - Post Discharge Activity
--- NOTE | 2019-08-09 02:34 | PDOC ---
Attending Attestation - Resident Resident Name: Klaus Rogers - ED Attending Attestation I have performed the following: I have examined & evaluated the patient, The case was reviewed & discussed with the resident, I agree w/resident's findings & plan - HPI HPI: 08/09/19 02:33 agree with resident hpi - Physicial Exam PE: 08/09/19 02:33 agree with resident exam - Medical Decision Making 08/09/19 02:33 34-year-old female status post trip and fall with left foot ankle and lower leg pain Plan for x-rays, due to difficulty ambulating patient will likely require crutches regardless of x-ray findings with orthopedic follow-up
[2019-08-09 02:35] VITALS: TEMP 98.5; BMI 38.0
[2019-08-09] MEDS ORDERED: ACETAMINOPHEN 500 MG TABLET (FP) PO ONE (02:46)
[2019-08-09] MEDS ORDERED: ACETAMINOPHEN 325 MG TABLET (FP) ONE ×2 (02:52→03:14)
[2019-08-09 04:28] VITALS: BP 121/83; PULSE 71
== END 2019-08-09 04:25 | disposition home or self-care (01) ==
LOC: JER 02:21
PROC: 2W3RX1Z Immobilization of Left Lower Leg using Splint (ICD-10-PCS; principal; 2019-08-09)
DX: M25.572 Pain in left ankle and joints of left foot (principal); W18.39XA Other fall on same level, initial encounter; Y93.89 Activity, other specified; Y92.89 Other specified places as the place of occurrence of the external cause; Z86.73 Personal history of transient ischemic attack (TIA), and cerebral infarction without residual deficits; F41.9 Anxiety disorder, unspecified
CPT/HCPCS: 73562-TC-LT-FY; 73590-TC-LT-FY; 73610-TC-LT-FY; 73630-TC-LT; 99282-25

== ENCOUNTER 2019-08-25 23:29 | Emergency (ER) | payer OTHER ==
[2019-08-25 23:41] VITALS: BP 120/85; PULSE 98; TEMP 98.6; BMI 32.3
--- NOTE | 2019-08-26 00:23 | PDOC ---
History of Present Illness - General Chief Complaint: Headache Stated Complaint: HEADACHE Time Seen by Provider: 08/26/19 00:23 History Source: Patient Exam Limitations: No Limitations - History of Present Illness Initial Comments: 34-year-old female with past medical history of CVA (x2 years ago), PFO on Eliquis presented to the emergency department for right upper quadrant pain for the last two months, were seen over the last couple of days. She reported her pain is crampy sometimes Stabby, intermittent, no alleviate her aggravating factors. She reported that she feel shes very anxious about her pain has been thinking about it a lot, and she thinks it is the cause of the headache that she currently has now. She stated she is sometimes nauseous, but currently not. She denied diarrhea, but a store, recent travel outside the country, chest pain , shortness of breath, bodyaches, fever, dysuria. ROS General: denied fever, chills, generalized weakness. HEENT: denied sore throat, rhinorrhea, ear pain. Cardiovascular: denied chest pain, palpitations, syncope, diaphoresis. Respiratory: denied shortness of breath, cough, sputum production, hemoptysis. Gastrointestinal: admitted to abdominal pain, nausea. denied vomiting, diarrhea , constipation, blood in stool. Genitourinary: denied dysuria, increased urinary frequency, hematuria, urinary incontinence, flank pain. Back: denied back pain. Musculoskeletal: denied joint pain, muscle pain, joint swelling. Neurological: admitted to headache. denied dizziness, numbness, tingling, weakness. Integumentary: denied rash, laceration, abrasion. Hematologic/Lymphatic: denied bruising or bleeding. PE Constitutional: Well-nourished, Well-developed, appearing stated age. Obese. HEENT: head is normocephalic, atraumatic. EOMI. PERRLA. Neck: supple. Full ROM. Cardiovascular: regular heart rhythm. no murmurs. no pericardial friction rub. Respiratory: clear to auscultation bilaterally. no crackles, rhonchi or wheezing. no stridor. Gastrointestinal: soft, nontender. dunham negative. normal bowel sounds. no rebound, guarding, masses. Extremities: peripheral pulses intact. no lower extremity edema. Neurological: CN 2-12 grossly intact. moves all four extremities. Psych: awake, alert, oriented x3. follows commands. answers questions appropriately. Past History - Past Medical History Allergies/Adverse Reactions: Allergies Allergy/AdvReac Type Severity Reaction Status Date / Time No Known Drug Allergies AdvReac Verified 08/25/19 23:39 Home Medications: Ambulatory Orders Amitriptyline HCl [Elavil -] 25 mg PO DAILY 07/28/19 Apixaban [Eliquis -] 5 mg PO DAILY 07/28/19 Clonazepam [Klonopin] 1 mg PO DAILY PRN 07/28/19 Iron,Carbonyl [Iron Chews] 15 mg PO DAILY 07/28/19 - Psycho Social/Smoking Cessation Hx Smoking Status: No Smoking History: Never smoked Number of Cigarettes Smoked Daily: 0 Hx Alcohol Use: No Drug/Substance Use Hx: Yes (marijuana) Substance Use Type: None Hx Substance Use Treatment: No *Physical Exam - Vital Signs Last Vital Signs Temp Pulse Resp BP Pulse Ox 98.6 F 98 H 20 120/85 97 08/25/19 23:39 08/25/19 23:39 08/25/19 23:39 08/25/19 23:39 08/25/19 23:39 ED Treatment Course - LABORATORY CBC & Chemistry Diagram: 08/26/19 00:42 08/26/19 00:42 Medical Decision Making - Medical Decision Making 34 year old female with above PMH presented to ED for RUQ pain x1 month, worsening over the last couple of days. Initial Vital Signs Temp Pulse Resp BP Pulse Ox 98.6 F 98 H 20 120/85 97 08/25/19 23:39 08/25/19 23:39 08/25/19 23:39 08/25/19 23:39 08/25/19 23:39 Afebrile. No tachycardia. No tachypnea. No hypotension. No hypoxia on room air. Labs ordered: CBC, CMP, Serum testing, UA/UC Imaging ordered: RUQ US Medications ordered: tylenol IV, pepcid IV, maalox PO, normal saline bolus 1000 cc once 08/26/19 02:00 Laboratory Last Values WBC 5.9 K/mm3 (4.0-10.0) 08/26/19 00:42 RBC 3.97 M/mm3 (3.60-5.2) 08/26/19 00:42 Hgb 12.5 GM/dL (10.7-15.3) 08/26/19 00:42 Hct 37.2 % (32.4-45.2) 08/26/19 00:42 MCV 93.9 fl (80-96) 08/26/19 00:42 MCH 31.6 pg (25.7-33.7) 08/26/19 00:42 MCHC 33.6 g/dl (32.0-36.0) 08/26/19 00:42 RDW 12.4 % (11.6-15.6) 08/26/19 00:42 Plt Count 252 K/MM3 (134-434) 08/26/19 00:42 MPV 9.6 fl (7.5-11.1) 08/26/19 00:42 Absolute Neuts (auto) 3.2 K/mm3 (1.5-8.0) 08/26/19 00:42 Neutrophils % 54.8 % (42.8-82.8) 08/26/19 00:42 Lymphocytes % 36.2 % (8-40) 08/26/19 00:42 Monocytes % 7.6 % (3.8-10.2) 08/26/19 00:42 Eosinophils % 0.8 % (0-4.5) 08/26/19 00:42 Basophils % 0.6 % (0-2.0) 08/26/19 00:42 Nucleated RBC % 0 % (0-0) 08/26/19 00:42 Serum , Qual Negative 08/26/19 00:42 Urine Color Yellow 08/26/19 00:42 Urine Appearance Clear 08/26/19 00:42 Urine pH 5.0 (5.0-8.0) 08/26/19 00:42 Ur Specific [place] 1.005 (1.010-1.035) L 08/26/19 00:42 Urine Protein Negative (NEGATIVE) 08/26/19 00:42 Urine Glucose (UA) Negative (NEGATIVE) 08/26/19 00:42 Urine Ketones Negative (NEGATIVE) 08/26/19 00:42 Urine Blood Trace (NEGATIVE) 08/26/19 00:42 Urine Nitrite Negative (NEGATIVE) 08/26/19 00:42 Urine Bilirubin Negative (NEGATIVE) 08/26/19 00:42 Urine Urobilinogen 0.2 mg/dL (0.2-1.0) 08/26/19 00:42 Ur Leukocyte Esterase Negative (NEGATIVE) 08/26/19 00:42 Urine WBC (Auto) 2 /hpf (0-5) 08/26/19 00:42 Urine RBC (Auto) 1 /hpf (0-4) 08/26/19 00:42 Urine Casts (Auto) 0 /lpf (0-8) 08/26/19 00:42 U Epithel Cells (Auto) 2.6 /HPF (0-5/HPF) 08/26/19 00:42 Urine Bacteria (Auto) 81.5 /hpf (NEGATIVE) 08/26/19 00:42 No leukocytosis. No anemia. No UTI. 08/26/19 02:21 CMP Sodium 137 mmol/L (136-145) 08/26/19 00:42 Potassium 5.1 mmol/L (3.5-5.1) 08/26/19 00:42 Chloride 105 mmol/L (98-107) 08/26/19 00:42 Carbon Dioxide 25 mmol/L (21-32) 08/26/19 00:42 Anion Gap 7 MMOL/L (8-16) L 08/26/19 00:42 BUN 11.5 mg/dL (7-18) 08/26/19 00:42 Creatinine 0.9 mg/dL (0.55-1.3) 08/26/19 00:42 Est GFR (CKD-EPI)AfAm 96.69 08/26/19 00:42 Est GFR (CKD-EPI)NonAf 83.42 08/26/19 00:42 Random Glucose 78 mg/dL (74-106) 08/26/19 00:42 Calcium 9.3 mg/dL (8.5-10.1) 08/26/19 00:42 Total Bilirubin 0.2 mg/dL (0.2-1) 08/26/19 00:42 AST 33 U/L (15-37) 08/26/19 00:42 ALT 41 U/L (13-61) 08/26/19 00:42 Alkaline Phosphatase 97 U/L (45-117) 08/26/19 00:42 Total Protein 7.8 g/dl (6.4-8.2) 08/26/19 00:42 Albumin 3.8 g/dl (3.4-5.0) 08/26/19 00:42 Serum , Qual Negative 08/26/19 00:42 08/26/19 03:55 Imaging [facility] women[facility] garment [facility] called about delay, reported they will make it stat. 08/26/19 04:41 US report: Referring Physician: VANITA RODRIGUEZ Comments: Marino Rivas MD wrote on Aug 26, 2019 at 04:38 AM: Referring Physician: VANITA RODRIGUEZ Patient Name: BENI MAZARIEGOS THIS IS A PRELIMINARY REPORT FROM [facility] DATE OF SERVICE: 2019-08-26 00:58:06 IMAGES: 69 EXAM: Ultrasound abdomen complete and limited abdominal duplex HISTORY: Right upper quadrant pain COMPARISON: None. FINDINGS: Ultrasound abdomen:The liver is mildly enlarged at 18.4 cm, without mass or intrahepatic biliary duct dilation. The gallbladder is normal. The CBD is nondilated and measures 6millimeters in diameter. The right kidney measures 11.6centimeters in diameter. The left kidney measures 11.0centimeters in diameter. There are no renal stones or hydronephrosis. Pancreas is partially obscured by bowel gas, but grossly unremarkable. The spleen measures 8.4 centimeters in length and is unremarkable. The visualized IVC and aorta are normal. No free fluid. Abdominal duplex: The main portal vein demonstrates normal hepatopedal flow. IMPRESSION: Mild hepatomegaly. THIS DOCUMENT HAS BEEN ELECTRONICALLY SIGNED Kendall Rivas MD 08/26/2019 04:37 JUNE Mayes Please call [facility] [phone] ([phone]) with questions. Marino Rivas MD Clinicians - Please contact [facility] with further questions at [phone]) Patients - Please contact your Ordering Provider with questions. Pt discharged. Discharge - Discharge Information Problems reviewed: Yes Clinical Impression/Diagnosis: RUQ pain Disposition: HOME - Follow up/Referral Referrals: Christiano Sanchez [Primary Care Provider] - - Patient Discharge Instructions - Post Discharge Activity
--- NOTE | 2019-08-26 00:30 | PDOC ---
Attending Attestation - Resident Resident Name: Brittney Miller - ED Attending Attestation I have performed the following: I have examined & evaluated the patient, The case was reviewed & discussed with the resident, I agree w/resident's findings & plan - HPI HPI: 08/26/19 00:47 RUQ pain x 2 months; worse for the past 2 days. Pt is anxious about the pain She has a hx of PFO and CVA in the past. - Physicial Exam PE: 08/26/19 02:31 Pt is afebrile No abd pain with palpation. No flank pain. Heart RRR, Lungs clear Pt has no skin rash. no bruising in the epigastrium, abd or flank Normal bowel sounds. - Medical Decision Making 08/26/19 02:02 WBC is normal 08/26/19 02:02 HCG negative; mendoza 08/26/19 02:29 Pt has elevated lipase of 421. 08/26/19 02:31 We are awaiting RUQ sono. SHe will need to follow with GI specialist. 08/26/19 04:34 Sono appears normal. Awaiting sono read x 2 hrs; just called [facility] and they reassigned the sono to another radiologist. Once the official read is back, pt can go home 08/26/19 04:55 Patient Name: BENI MAZARIEGOS THIS IS A PRELIMINARY REPORT FROM [facility] DATE OF SERVICE: 2019-08-26 00:58:06 IMAGES: 69 EXAM: Ultrasound abdomen complete and limited abdominal duplex HISTORY: Right upper quadrant pain COMPARISON: None. FINDINGS: Ultrasound abdomen:The liver is mildly enlarged at 18.4 cm, without mass or intrahepatic biliary duct dilation. The gallbladder is normal. The CBD is nondilated and measures 6millimeters in diameter. The right kidney measures 11.6centimeters in diameter. The left kidney measures 11.0centimeters in diameter. There are no renal stones or hydronephrosis. Pancreas is partially obscured by bowel gas, but grossly unremarkable. The spleen measures 8.4 centimeters in length and is unremarkable. The visualized IVC and aorta are normal. No free fluid. Abdominal duplex: The main portal vein demonstrates normal hepatopedal flow. IMPRESSION: Mild hepatomegaly
[2019-08-26] MEDS ORDERED: ACETAMINOPHEN 1000 MG/100 ML VIAL (NON FORMULARY) IVPB ONE (00:37)
[2019-08-26] MEDS ORDERED: SODIUM CHLORIDE 1,000 ML IV STA (00:37)
[2019-08-26] MEDS ORDERED: FAMOTIDINE 20 MG/50 ML IVPB 20 MG/50 ML MG IVPB ONE ×2 (00:37→00:49)
[2019-08-26] MEDS ORDERED: MAG HYDROX/AL HYDROX/SIMETH 30 ML UNIT-DOSE CUP PO ONE (00:37)
[2019-08-26] MEDS ORDERED: ACETAMINOPHEN INJECTION 100 ML IVPB ONE (00:48)
[2019-08-26] MEDS ORDERED: MAG HYDROX/AL HYDROX/SIMETH 30 ML UNIT-DOSE CUP ONE (00:48)
[2019-08-26 01:37] LABS: BASO % 0.6 % (0-2.0); EOS % 0.8 % (0-4.5); HEMATOCRIT 37.2 % (32.4-45.2); HEMOGLOBIN 12.5 GM/dL (10.7-15.3); LYMPH % 36.2 % (8-40); MCH 31.6 pg (25.7-33.7); MCHC 33.6 g/dl (32.0-36.0); MEAN CELL VOLUME 93.9 fl (80-96); MEAN PLT VOLUME 9.6 fl (7.5-11.1); MONO % 7.6 % (3.8-10.2); NEUT % 54.8 % (42.8-82.8); PLATELET COUNT 252 K/MM3 (134-434); RBC 3.97 M/mm3 (3.60-5.2); RDW 12.4 % (11.6-15.6); WHITE BLOOD COUNT 5.9 K/mm3 (4.0-10.0)
[2019-08-26 01:41] LABS: EPI CELLS 2.6 /HPF (0-5/HPF); HYALINE CASTS 0 /lpf (0-8); URINE APPEARANCE CLEAR; URINE BACTERIA 81.5 /hpf (NEGATIVE); URINE BILIRUBIN NEGATIVE (NEGATIVE); URINE COLOR YELLOW; URINE GLUCOSE (UA) NEGATIVE (NEGATIVE); URINE KETONE NEGATIVE (NEGATIVE); URINE LEUK ESTERASE NEGATIVE (NEGATIVE); URINE NITRITE NEGATIVE (NEGATIVE); URINE PROTEIN NEGATIVE (NEGATIVE); URINE RBC 1 /hpf (0-4); URINE UROBILINOGEN 0.2 mg/dL (0.2-1.0); URINE WBC 2 /hpf (0-5)
[2019-08-26 02:19] LABS: ALBUMIN 3.8 g/dl (3.4-5.0); BILIRUBIN,TOTAL 0.2 mg/dL (0.2-1); BLOOD UREA NITROGEN 11.5 mg/dL (7-18); CALCIUM 9.3 mg/dL (8.5-10.1); CREATININE 0.9 mg/dL (0.55-1.3); POTASSIUM 5.1 mmol/L (3.5-5.1); TOT PROT 7.8 g/dl (6.4-8.2)
== END 2019-08-26 05:02 | disposition home or self-care (01) ==
LOC: JER 23:29
PROC: 3E033GC Introduction of Other Therapeutic Substance into Peripheral Vein, Percutaneous Approach (ICD-10-PCS; principal; 2019-08-25)
PROC: 3E033NZ Introduction of Analgesics, Hypnotics, Sedatives into Peripheral Vein, Percutaneous Approach (ICD-10-PCS; 2019-08-25)
DX: R10.11 Right upper quadrant pain (principal); Q21.1 Atrial septal defect; Z86.73 Personal history of transient ischemic attack (TIA), and cerebral infarction without residual deficits; Z79.01 Long term (current) use of anticoagulants
CPT/HCPCS: 36415; 76700-TC; 80053; 81003; 83690; 84703; 85025; 87086; 99283-25; J0131; J7030

== ENCOUNTER 2019-08-27 20:59 | Emergency (ER) | payer OTHER ==
[2019-08-27 21:07] VITALS: BP 118/65; PULSE 78; TEMP 98; BMI 40.3
--- NOTE | 2019-08-27 21:07 | PDOC ---
Rapid Medical Evaluation Time Seen by Provider: 08/27/19 21:02 Medical Evaluation: Allergies Allergy/AdvReac Type Severity Reaction Status Date / Time No Known Drug Allergies AdvReac Verified 08/25/19 23:39 08/27/19 21:02 I performed a brief in-person evaluation of this patient. 34-year-old female with history of CVA in 2017 with some residual ataxia presenting with 3 days of bilateral neck/jaw pain. Reports has had this in past and u/s was ordered by her PCP, however she did not obtain it. Pertinent physical exam findings: Afebrile No lymphadenopathy No tonsillar swelling or erythema I have ordered the following: None Patient to proceed to: FT for further evaluation Discharge Disposition - Diagnosis Neck pain - Referrals Referrals: Christiano Sanchez [Primary Care Provider] - - Patient Instructions - Post Discharge Activity
--- NOTE | 2019-08-27 22:07 | PDOC ---
History of Present Illness - General Chief Complaint: Ear Problem Stated Complaint: PAIN Time Seen by Provider: 08/27/19 21:02 - History of Present Illness Initial Comments: 08/27/19 22:05 34-year-old female with a past medical history of TIAs CVAs, depression anxiety and migraines presents for evaluation of bilateral neck pain x3 days without systemic symptoms Past History - Past Medical History Allergies/Adverse Reactions: Allergies Allergy/AdvReac Type Severity Reaction Status Date / Time No Known Drug Allergies AdvReac Verified 08/27/19 21:07 Home Medications: Ambulatory Orders Amitriptyline HCl [Elavil -] 25 mg PO DAILY 07/28/19 Apixaban [Eliquis -] 5 mg PO DAILY 07/28/19 Clonazepam [Klonopin] 1 mg PO DAILY PRN 07/28/19 Iron,Carbonyl [Iron Chews] 15 mg PO DAILY 07/28/19 Anemia: No Asthma: No Cancer: No Cardiac Disorders: No CVA: Yes (06/2017 X 2) COPD: No CHF: No DVT: No Dementia: No Diabetes: No GI Disorders: No Disorders: No HTN: No Hypercholesterolemia: No Liver Disease: No Psychiatric Problems: Yes (panic attack , anxiety) Seizures: No Thyroid Disease: No - Surgical History Appendectomy: No Cholecystectomy: No Neurologic Surgery: No - Reproductive History (#): 4 Para: 3 Ectopic : Yes - Immunization History Immunization Up to Date: No (flu) - Psycho Social/Smoking Cessation Hx Smoking Status: No Smoking History: Never smoked Have you smoked in the past 12 months: No Number of Cigarettes Smoked Daily: 0 Hx Alcohol Use: No Drug/Substance Use Hx: Yes (marijuana) Substance Use Type: None Hx Substance Use Treatment: No Review of Systems - Review of Systems Musculoskeletal: Yes: Neck Pain *Physical Exam - Vital Signs Last Vital Signs Temp Pulse Resp BP Pulse Ox 98.0 F 78 18 118/65 100 08/27/19 21:02 08/27/19 21:02 08/27/19 21:02 08/27/19 21:02 08/27/19 21:02 - Physical Exam 08/27/19 22:06 GENERAL: The patient is awake, alert, and fully oriented, in no acute distress. HEAD: Normal with no signs of trauma. EYES: sclera anicteric, conjunctiva clear. ENT: Ears normal tympanic membranes normal oropharynx clear uvula midline NECK: Normal range of motion mild tenderness about the inferior angle of the mandible bilaterally. No spasm of the sternocleidomastoid. No meningismus LUNGS: No distress EXTREMITIES: Normal range of motion, no edema. No clubbing or cyanosis. No cords, erythema, or tenderness. NEUROLOGICAL: Cranial nerves II through XII grossly intact. Normal speech, normal gait. PSYCH: Normal mood, normal affect. SKIN: Warm, Dry, normal turgor, no rashes or lesions noted. Medical Decision Making - Medical Decision Making 08/27/19 22:07 Patient's pain is getting better over the last 3 days. She states she had this before was placed on the muscle relaxer and her pain resolved. This does not appear to be sternocleidomastoid muscular spasm may be platysmal follow-up with primary care physician. Cannot take anti-inflammatories because of Eliquis discussed use of Tylenol for pain. Discharge - Discharge Information Problems reviewed: Yes Clinical Impression/Diagnosis: Neck pain Condition: Stable Disposition: HOME - Admission No - Follow up/Referral Referrals: Christiano Sanchez [Primary Care Provider] - - Patient Discharge Instructions Additional Instructions: Please follow-up with your primary care physician in 2 to 3 days for further evaluation and treatment options and return to the emergency room should symptoms worsen or go unresolved. Please take Tylenol only for pain as directed - Post Discharge Activity
== END 2019-08-27 22:43 | disposition home or self-care (01) ==
LOC: JERFT 20:59
DX: M54.2 Cervicalgia (principal); F41.9 Anxiety disorder, unspecified; F32.9 Major depressive disorder, single episode, unspecified; Z86.73 Personal history of transient ischemic attack (TIA), and cerebral infarction without residual deficits; Z86.69 Personal history of other diseases of the nervous system and sense organs
CPT/HCPCS: 99281-25

== ENCOUNTER 2019-09-06 16:13 | Emergency (ER) | payer OTHER ==
[2019-09-06 16:25] VITALS: BP 129/70; PULSE 80; TEMP 97.9; BMI 40.3
[2019-09-06] MEDS ORDERED: ACETAMINOPHEN 500 MG TABLET (FP) PO ONE (18:06)
[2019-09-06] MEDS ORDERED: METOCLOPRAMIDE HCL INJECTION 10 MG/2 ML VIAL IVPB ONE (18:06)
--- NOTE | 2019-09-06 18:10 | PDOC ---
History of Present Illness - General Chief Complaint: Headache Stated Complaint: BAD HEADACHE Time Seen by Provider: 09/06/19 17:42 History Source: Patient - History of Present Illness Initial Comments: 09/06/19 18:03 34 year old female occipital headache for 4- 5 days, patient c/o nausea. denies photosensitivity, phonophobi, vision changes, weakness , chest pain, nausea, vomiting patient was on eliquis until 2 days ago. patient reports history of CVA 2 years ago, headaches 09/06/19 18:48 09/06/19 20:57 Past History - Past Medical History Allergies/Adverse Reactions: Allergies Allergy/AdvReac Type Severity Reaction Status Date / Time No Known Drug Allergies AdvReac Verified 09/06/19 16:31 Home Medications: Ambulatory Orders Amitriptyline HCl [Elavil -] 25 mg PO DAILY 07/28/19 Apixaban [Eliquis -] 5 mg PO DAILY 07/28/19 Clonazepam [Klonopin] 1 mg PO DAILY PRN 07/28/19 Iron,Carbonyl [Iron Chews] 15 mg PO DAILY 07/28/19 Anemia: No Asthma: No Cancer: No Cardiac Disorders: No CVA: Yes (06/2017 X 2) COPD: No CHF: No DVT: No Dementia: No Diabetes: No GI Disorders: No Disorders: No HTN: No Hypercholesterolemia: No Liver Disease: No Psychiatric Problems: Yes (panic attack , anxiety) Seizures: No Thyroid Disease: No - Surgical History Appendectomy: No Cholecystectomy: No Neurologic Surgery: No - Reproductive History (#): 4 Para: 3 Ectopic : Yes - Immunization History Immunization Up to Date: No (flu) - Psycho Social/Smoking Cessation Hx Smoking Status: No Smoking History: Former smoker Have you smoked in the past 12 months: No Number of Cigarettes Smoked Daily: 0 Information on smoking cessation initiated: No Hx Alcohol Use: No Drug/Substance Use Hx: Yes (marijuana) Substance Use Type: None Hx Substance Use Treatment: No *Physical Exam - Vital Signs Last Vital Signs Temp Pulse Resp BP Pulse Ox 97.9 F 80 16 129/70 99 09/06/19 16:24 09/06/19 16:24 09/06/19 16:24 09/06/19 16:24 09/06/19 16:24 - Physical Exam General Appearance: Yes: Appropriately Dressed Respiratory/Chest: positive: Lungs Clear, Normal Breath Sounds Cardiovascular: positive: Regular Rhythm, Regular Rate Integumentary: positive: Normal Color, Dry, Warm 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 will d/ chome Discharge - Discharge Information Problems reviewed: Yes Clinical Impression/Diagnosis: Headache Qualifiers: Headache type: unspecified Headache chronicity pattern: acute headache Intractability: intractable Qualified Code(s): R51 - Headache Disposition: HOME - Follow up/Referral Referrals: Samuel Recio [Primary Care Provider] - - Patient Discharge Instructions Patient Printed Discharge Instructions: DI for Migraine Additional Instructions: Please follow-up with your neurologist as soon as possible. Drink plenty of fluids. You may take Tylenol every 4-6 hours as needed for headache. Return to the emergency room for any worsening symptoms. - Post Discharge Activity Work/Back to School Note: Back to Work
[2019-09-06 18:51] LABS: BASO % 0.5 % (0-2.0); EOS % 0.9 % (0-4.5); HEMATOCRIT 38.4 % (32.4-45.2); HEMOGLOBIN 12.8 GM/dL (10.7-15.3); LYMPH % 31.8 % (8-40); MCH 31.2 pg (25.7-33.7); MCHC 33.4 g/dl (32.0-36.0); MEAN CELL VOLUME 93.4 fl (80-96); MEAN PLT VOLUME 9.4 fl (7.5-11.1); MONO % 8.2 % (3.8-10.2); NEUT % 58.6 % (42.8-82.8); PLATELET COUNT 266 K/MM3 (134-434); RBC 4.11 M/mm3 (3.60-5.2); RDW 12.3 % (11.6-15.6); WHITE BLOOD COUNT 4.9 K/mm3 (4.0-10.0)
[2019-09-06 19:14] LABS: BILIRUBIN,TOTAL 0.1 mg/dL (0.2-1); CALCIUM 9.4 mg/dL (8.5-10.1); CREATININE 0.8 mg/dL (0.55-1.3); POTASSIUM 4.2 mmol/L (3.5-5.1); TOT PROT 8.3 g/dl (6.4-8.2)
[2019-09-06 19:15] LABS: INR 1.04 (0.83-1.09); PROTHROMBIN TIME (PATIENT) 12.3 SEC (9.7-13.0)
[2019-09-06 19:18] LABS: ACTIVATED PTT 34.5 SECONDS (25.2-36.5)
[2019-09-06] MEDS ORDERED: ACETAMINOPHEN 325 MG TABLET (FP) ONE (20:17)
[2019-09-06] MEDS ORDERED: METOCLOPRAMIDE HCL INJECTION 10 MG/2 ML VIAL ONE (20:17)
== END 2019-09-06 22:47 | disposition home or self-care (01) ==
LOC: JER 16:13
DX: R51 Headache (principal); F42.9 Obsessive-compulsive disorder, unspecified; F32.9 Major depressive disorder, single episode, unspecified; Z86.73 Personal history of transient ischemic attack (TIA), and cerebral infarction without residual deficits
CPT/HCPCS: 36415; 70450-TC; 80053; 84703; 85025; 85610; 85730; 99282-25

== ENCOUNTER 2020-06-14 21:12 | Emergency (ER) | payer OTHER ==
[2020-06-14 21:27] VITALS: BP 103/76; PULSE 83; TEMP 99.1; BMI 38.0
--- NOTE | 2020-06-14 21:27 | PDOC ---
History of Present Illness - General Chief Complaint: Lightheaded Stated Complaint: DIZZINESS Time Seen by Provider: 06/14/20 21:26 - History of Present Illness Initial Comments: 34 YOF h/o CVA and enlarged liver presents for nausea, lightheadedness and dizziness since two hours. Patient was sitting at home watching TV when she e xperienced these symptoms. Did not fall, lose consciousness or hit head. Her LMP was 1 month ago, she is currently 3 days late. She also describes h/o ectopic . Patient had CVA 3 years ago, was on OCPs at the time but etiology of stroke was never determined. Denies blood in urine, blood in stool, CP, SOB, V/D, fever or chills, recent sick contacts, recent travel or leg swelling. Constitutional: No Weight Change, No Fever, No Chills, No Night Sweats, No Fatigue, No Malaise ENT/Mouth: No Hearing Changes, No Ear Pain, No Nasal Congestion, No Sinus Pain, No Hoarseness, No sore throat, No Rhinorrhea, No Swallowing Difficulty Eyes: No Eye Pain, No Swelling, No Redness, No Foreign Body, No Discharge, No Vision Changes Cardiovascular: No Chest Pain, No SOB, No PND, No Dyspnea on Exertion, No Orthopnea, No Claudication, No Edema, No Palpitations Respiratory: No Cough, No Sputum, No Wheezing, No Smoke Exposure, No Dyspnea Gastrointestinal: No Nausea, No Vomiting, No Diarrhea, No Constipation, No Pain, No Heartburn, No Anorexia, No Dysphagia, No Hematochezia, No Melena, No Flatulence, No Jaundice Genitourinary: No Dysmenorrhea, No DUB, No Dyspareunia, No Dysuria, No Urinary Frequency, No Hematuria, No Urinary Incontinence, No Urgency, No Flank Pain, No Urinary Flow Changes, No Hesitancy Musculoskeletal: No Arthralgias, No Myalgias, No Joint Swelling, No Joint Stiffness, No Back Pain, No Neck Pain, No Injury History Skin: No Skin Lesions, No Pruritis, No Hair Changes, No Breast/Skin Changes, No Nipple Discharge Neuro: No Weakness, No Numbness, No Paresthesias, No Loss of Consciousness, No Syncope, No Dizziness, No Headache, No Coordination Changes, No Recent Falls Psych: No Anxiety/Panic, No Depression, No Insomnia, No Personality Changes, No Delusions, No Rumination, No SI/HI/AH/VH, No Social Issues, No Memory Changes, No Violence/Abuse Hx., No Eating Concerns Heme/Lymph: No Bruising, No Bleeding, No Transfusions History, No Lymphadenopathy Endocrine: No Polyuria, No Polydipsia, No Temperature Intolerance Past History - Medical History Allergies/Adverse Reactions: Allergies Allergy/AdvReac Type Severity Reaction Status Date / Time No Known Drug Allergies AdvReac Verified 06/14/20 21:25 Home Medications: Ambulatory Orders Amitriptyline HCl [Elavil -] 25 mg PO DAILY 07/28/19 Apixaban [Eliquis -] 5 mg PO DAILY 07/28/19 Clonazepam [Klonopin] 1 mg PO DAILY PRN 07/28/19 Iron,Carbonyl [Iron Chews] 15 mg PO DAILY 07/28/19 Anemia: No Asthma: No Cancer: No Cardiac Disorders: No CVA: Yes (06/2017 X 2) COPD: No CHF: No DVT: No Dementia: No Diabetes: No GI Disorders: No Disorders: No HTN: No Hypercholesterolemia: No Liver Disease: No Psychiatric Problems: Yes (panic attack , anxiety) Seizures: No Thyroid Disease: No - Surgical History Appendectomy: No Cholecystectomy: No Neurologic Surgery: No - Reproductive History Is Patient Now?: No (#): 4 Para: 3 Ectopic : Yes - Immunization History Immunization Up to Date: No (flu) - Psycho-Social/Smoking History Smoking Status: No Smoking History: Never smoked Have you smoked in the past 12 months: No Number of Cigarettes Smoked Daily: 0 Information on smoking cessation initiated: No - Substance Abuse Hx (Audit-C & DAST Scrn) How often the patient has a drink containing alcohol: Never Score: In Men: 4 or > Positive; In Women: 3 or > Positive: 0 Screen Result (Pos requires Nsg. Audit-10AR): Negative In the last yr the pt used illegal drug/Rx for NonMed reason: No Score: Yes response is considered Positive: 0 Screen Result (Positive result requires Nsg. DAST-10): Negative *Physical Exam - Vital Signs Last Vital Signs Temp Pulse Resp BP Pulse Ox 99.1 F 83 20 103/76 99 06/14/20 21:25 06/14/20 21:25 06/14/20 21:25 06/14/20 21:25 06/14/20 21:25 - Physical Exam General Appearance: Yes: Nourished, Appropriately Dressed HEENT: positive: EOMI, ANURADHA, Normal ENT Inspection, Normal Voice, Symmetrical, TMs Normal, Pharynx Normal Neck: positive: Trachea midline, Normal Thyroid Respiratory/Chest: positive: Lungs Clear, Normal Breath Sounds Cardiovascular: positive: Regular Rhythm, Regular Rate, S1, S2 Musculoskeletal: positive: Normal Inspection Extremity: positive: Normal Capillary Refill, Normal Inspection Integumentary: positive: Normal Color, Dry, Warm 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: 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: 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 Discharge - Discharge Information Problems reviewed: Yes Clinical Impression/Diagnosis: Dizziness Condition: Good Disposition: HOME - Admission No - Follow up/Referral - Patient Discharge Instructions Patient Printed Discharge Instructions: DI for Dizziness-Nonvertigo Additional Instructions: You were seen in the ER for an episode of lightheadedness. While in the ER you received labs, cardiac blood work, urine analysis and EKG. All of these were unremarkable. You also received 1 liter of fluids. When reassessed you reported feeling better. You were considered medically stable and safe to return home. When at home please make sure you drink plenty of fluids and eat normally. Follow up with your regular doctor regarding symptoms. Return to the emergency department if: You have sudden chest pain. You have trouble breathing or shortness of breath. You have vision changes, are sweating, and have nausea while you are sitting or lying down. You feel dizzy or flushed and your heart is fluttering. You lose consciousness. You cannot use your arm, hand, foot, or leg, or it feels weak. You have trouble speaking or understanding others when they speak. You have new or worsening symptoms. Your heart beats faster or slower than usual. You have questions or concerns about your condition or care. - Post Discharge Activity
--- NOTE | 2020-06-14 21:33 | PDOC ---
Attending Attestation - Resident Resident Name: Oumar Merrill - ED Attending Attestation I have performed the following: I have examined & evaluated the patient, The case was reviewed & discussed with the resident, I agree w/resident's findings & plan - HPI HPI: 06/14/20 21:57 Pt comes with complaint of lightheadedness. She is under a lot of stress. 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 Pt has a hx of a CVA and she is nervous that she has the same thing that dad had. Pt also obese and she eats junk and she knows that this doesn't help her. Pt wants to make sure she is ok. She has a best friend with her and she has 2 sisters who help her. so she has a support system in place. - Physicial Exam PE: 06/14/20 21:57 Normal exam Normal vitals Pt has normal heart and lungs no abd pain and no flank pain no swelling of extremities she has equal pulses throughout pt has eczema on her palsm bialt which has cleared up with otezla. - Medical Decision Making 06/14/20 21:57 EKG NSR Vitals normal Pt will have basic labs and a UA 06/14/20 23:51 Pt likely has side effects of otezla -- weakness and wooziness and dizziness etc. Pt's palm eczema vastly improved after a week of otezla use. We discussed perhaps pausing treatment for a bit and switching to cortisone. 06/14/20 23:55 ALL LABS AND EXAM AND EKG NORMAL; PT CAN GO HOME Heart Score/ECG Review - ECG Intrepretation Rhythm: Regular Rhythm - Talmage Talmage: Normal - P and IL Prominent R with upright T in V1 (true posterior IN): No Delta Wave(s) Present: No WPW: No - QRS Poor R Wave Progression: No Q Wave Present: No - ST and T Early Repolarization: No Non Specific ST-T Wave changes: No - ECG Impressions Normal ECG: Yes Non-specific ST Elevation: No Ischemic Changes: No Bradycardia: No Torsades hawa Pointes: No Discharge - Discharge Information Problems reviewed: Yes Clinical Impression/Diagnosis: Dizziness Condition: Good Disposition: HOME - Additional Discharge Information Prescriptions: Mometasone Furoate [Elocon] 1 applic TP BID #45 cream..g. - Follow up/Referral - Patient Discharge Instructions Patient Printed Discharge Instructions: DI for Dizziness-Nonvertigo Additional Instructions: You were seen in the ER for an episode of lightheadedness. While in the ER you received labs, cardiac blood work, urine analysis and EKG. All of these were unremarkable. You also received 1 liter of fluids. When reassessed you reported feeling better. You were considered medically stable and safe to return home. When at home please make sure you drink plenty of fluids and eat normally. Follow up with your regular doctor regarding symptoms. Return to the emergency department if: You have sudden chest pain. You have trouble breathing or shortness of breath. You have vision changes, are sweating, and have nausea while you are sitting or lying down. You feel dizzy or flushed and your heart is fluttering. You lose consciousness. You cannot use your arm, hand, foot, or leg, or it feels weak. You have trouble speaking or understanding others when they speak. You have new or worsening symptoms. Your heart beats faster or slower than usual. You have questions or concerns about your condition or care. - Post Discharge Activity
[2020-06-14] MEDS ORDERED: LACTATED RINGERS SOLUTION 1000 ML INFUS.BAG IV ONE (22:39)
--- OUTSIDE RECORDS SUMMARY | 2020-06-14 22:43 | XMS ---
:1985 Demographics Address [address] [place] [address] Mobile Phone Email Address Preferred Language en Marital Status or Orthodox Affiliation MOR [facility] Ethnic Group or Author Organization [facility] Care Team Providers Name Role Phone Gurinder Michelle Unavailable FIORELLA PAIGE, WILD Unavailable FIORELLA PAIGE, WILD Unavailable FIORELLA PAIGE, WILD Unavailable FIORELLA PAIGE, WILD Unavailable FIORELLA PAIGE, WILD Unavailable FIORELLA PAIGE, WILD Unavailable NICHO ROBERSON LCSW Unavailable AGYEPONG POWER AND RECOVERY 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, EDWARDO Unavailable AGYEPONG POWER AND RECOVERY 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, EDWARDO Unavailable ARJUN POWER AND RECOVERY 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, IRINA Unavailable ARJUN POWER AND RECOVERY 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, IRINA Unavailable ARJUN POWER AND RECOVERY 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, IRINA Unavailable [facility] Unavailable TADEO PAIGE, VANESA Unavailable Re-disclosure Warning The records that you are about to access may contain information from federally- assisted alcohol or drug abuse programs. If such information is present, then the following federally mandated warning applies: This information has been disclosed to you from records protected by federal confidentiality rules (42 CFR part 2). The federal rules prohibit you from making any further disclosure of this information unless further disclosure is expressly permitted by the written consent of the person to whom it pertains or as otherwise permitted by 42 CFR part 2. A general authorization for the release of medical or other information is NOT sufficient for this purpose. The Federal rules restrict any use of the information to criminally investigate or prosecute any alcohol or drug abuse patient.The records that you are about to access may contain highly sensitive health information, the redisclosure of which is protected by Article 27-F of the [facility] Public Health law. If you continue you may haveaccess to information: Regarding HIV / AIDS; Provided by facilities licensed or operated by the [facility] Office of Mental Health; or Provided by the [facility] Office for People With Developmental Disabilities. If such information is present, then the following [facility] mandated warning applies: This information has been disclosed to you from confidential records which are protected by state law. State law prohibits you from making any further disclosure of this information without the specific written consent of the person to whom it pertains, or as otherwise permitted by law. Any unauthorized further disclosure in violation of state law may result in a fine or retirement sentence or both. A general authorization for the release of medical or other information is NOT sufficient authorization for further disclosure. Encounters Encounter Providers Location Date Indications Data Source(s) Outpatient<td Attender: Pb Dowling 04/01 VENEDOCIA ID="encounter NICHO (Pb Caitlyn shelby TypeDescripti [facility] 03:00 Neighbor rogel onID0">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 :00 Health Y</td><td>STA PM Center) CY MORALDO EDT - GRAVITY PROSPECTING OBSERVER</td><td> 04/01 [place] 11:59 Health :00 Center</td><t PM d>04/01/2020< EDT /td><td></td> Outpatient<td Attender: Yassine 03/11 [facility]EDOCIA [facility] 04:00 [place] rogel onID1">OFFICE :00 Health VISIT</td><td PM Center) >VANESA EDT - TADEO 03/11 </td><td> nkers 03:56 Community :56 Health PM Center</td><t EDT d>03/11/2020< /td><td></td> Outpatient<td Attender: Yassine 02/26 VENEDOCIA ID="encounter IRINA [facility] [place] rogel onID2">OFFICE POWER AND RECOVERY 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 :00 Health VISIT</td><td PM [facility]) [facility] POWER AND RECOVERY 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</td><td> onkers 03:25 Community :27 Health PM Center</td><t EDT d>02/27/2020< /td><td></td> Outpatient<td Attender: Pb Dowling 02/25 VENEDOCIA ID="encounter NICHO Neighborhood ([facility] TypeDescripti [facility] 02:00 [place] rogel onID3">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 :00 Health Y</td><td>STA PM Center) LEXUS LOONEY EDT - GRAVITY PROSPECTING OBSERVER</td><td> 02/25 [place] 11:59 Health :00 Center</td><t PM d>02/26/2020< EDT /td><td></td> Outpatient<td Attender: Yassine 02/11 VENEDOCIA [facility] Jose Raul on TypeDescripti [facility] 04:00 [place] rogel onID4">OFFICE :00 Health VISIT</td><td PM Center) >VANESA EDT - [place] 02/11 MD</td><td> nkers 04:47 Community :24 Health PM Center</td><t EDT d>02/12/2020< /td><td></td> Outpatient<td Attender: Yassine 02/11 FERN ID="encounter [facility] /2019 ([facility] on [facility] 03:20 [place] rogel onID5">*OUTRE POWER AND RECOVERY 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 :00 Health ACH*</td><td> PM Center) [facility] 02/11 POWER AND RECOVERY 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</td><td> onkerjazmyn 11:59 Community :00 Health PM Center</td><t EDT d>02/12/2020< /td><td></td> Outpatient<td Attender: Yassine 02/06 ObesityObesityObesityO besityObe FERN ID="encounter [facility] sityObesity ([facility] 01:30 [place] rogel onID6">OFFICE POWER AND RECOVERY 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 :00 Health VISIT</td><td PM Center) >[facility] 02/06 POWER AND RECOVERY 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</td><td> onkers 01:34 Community :05 Health PM Center</td><t EDT d>02/07/2020< /td><td><cont ent ID="encounter DiagnosisID6- 0">Obesity</c ontent></td> Obesity Obesity Obesity Obesity Obesity Obesity Outpatient<td Attender: Yassine 02/04/2020 Urinary Tract VENEDOCIA ID="encounterTypeDescriptionID7">*OUTREACH*</td><td>[facility] 11:41:00 AM InfectionUrinary ([facility] POWER AND RECOVERY 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</td><td>[facility] E DT - [place] [facility] Center</td><td>02/04/2020</td><td><content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 02/04/2020 InfectionUrinary Health ID="encounterDiagnosisID7-0">Urinary Tract 11:5 9:00 PM Tract Center) Infection</content></td> EDT InfectionUr inary Tract InfectionUrinary Tract InfectionUrinary Tract InfectionUrinary Tract Infection Urinary Tract Infection Urinary Tract Infection Urinary Tract Infection Urinary Tract Infection Urinary Tract Infection Urinary Tract Infection Urinary Tract Infection Outpatient<td Attender: [place] 01/30/2020 Urinary Tract InfectionUrinary Tract InfectionUrinary Tract VENEDOCIA ID="encounterTypeDescriptionID8">WALKINS</td><td>[facility] 03:00:00 PM InfectionUrinary Tract InfectionUrinary Tract Infectio nUrinary ([facility]</td><td>[facility] EDT - Tract InfectionUrinary Tract InfectionUrinary Tract [facility]</td><td>01/30/2020</td><td><content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 01/30/2020 InfectionOveranxious DisorderOveranxious DisorderOveranxious Health ID="encounterDiagnosisID8-0">Urinary Tract 03:54:02 PM DisorderOveranxious DisorderOveranxious DisorderOveranxious [place]) Infection</content>, <content EDT Disord erOveranxious DisorderOveranxious ID="encounterDiagnosisID8-1">Obesity</content>, DisorderObesityObesityObesityObesityObesityObesityObesityObesity <content ID="encounterDiagnosisID8-2">Overanxious Disorder</content></td> Urinary Tract Infection Urinary Tract Infection Urinary Tract Infection Urinary Tract Infection Urinary Tract Infection Urinary Tract Infection Urinary Tract Infection Urinary Tract Infection Overanxious Disorder Overanxious Disorder Overanxious Disorder Overanxious Disorder Overanxious Disorder Overanxious Disorder Overanxious Disorder Overanxious Disorder Obesity Obesity Obesity Obesity Obesity Obesity Obesity Obesity Outpatient<td Attender: [place] 01/22/2020 Overanxious VENEDOCIA ID="encounterTypeDescriptionID9">*Phone*</td><td>[facility] 02:35:00 PM DisorderOveranxious ([facility]</td><td>[facility] EDT - DisorderOveranxious [facility]</td><td>01/22/2020</td><td><content 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 01/[facility]/2020 DisorderOveranxious Health ID="encounterDiagnosisID9-0">Overanxious 11:59: 00 PM DisorderOveranxious Center) Disorder</content></td> EDT DisorderOver anxious DisorderOveranxious DisorderOveranxious DisorderOveranxious Disorder Overanxious Disorder Overanxious Disorder Overanxious Disorder Overanxious Disorder Overanxious Disorder Overanxious Disorder Overanxious Disorder Overanxious Disorder Overanxious Disorder Outpatient<td Attender: Yassine 01/16/2020 Overanxious VENEDOCIA ID="[id number]">*Phone*</td><td>[facility] 03:02:00 PM DisorderOveranxious ([facility] POWER AND RECOVERY 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</td><td>[facility] EDT - DisorderOveranxious [facility]</td><td>01/16/2020</td><td><content [facility] 01/16/2020 DisorderOveranxious Health ID="[id number]">Overanxious 11:59 :00 PM DisorderOveranxious [place]) Disorder</content></td> EDT DisorderOver anxious DisorderOveranxious DisorderOveranxious DisorderOveranxious DisorderOveranxious Disorder Overanxious Disorder Overanxious Disorder Overanxious Disorder Overanxious Disorder Overanxious Disorder Overanxious Disorder Overanxious Disorder Overanxious Disorder Overanxious Disorder Overanxious Disorder Outpatient<td Attender: Yassine 01/15/2020 VENEDOCIA ID="[id number]">OFFICE [facility] 04:00: 00 PM ([place] VISIT</td><td>VANESA PIEDRA MD Health EDT - [facility]</td><td>[facility] 01/15/2020 Health Center</td><td>01/15/2020</td><td></td> 03:55:3 1 PM Center) EDT Outpatient<td Attender: Yassine 11/28/2019 VENEDOCIA ID="[id number]">*Phone* [facility] 11:53 :00 AM ([place] </td><td>[facility] EDT - N [facility] POWER AND RECOVERY 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</td><td>[facility]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 11/28/2019 Health Center</td><td>11/28/2019</td><td></td> 11:59:0 0 PM Center) EDT Outpatient<td Attender: Yassine 11/27/2019 VENEDOCIA ID="[id number]">THERAPY [facility] 05:00 :00 PM ([place] </td><td>[facility] TADEO PIEDRA IA Health EDT - [facility]</td><td>[facility] 11/27/2019 Health Center</td><td>11/27/2019</td><td></td> 04:20:0 1 PM Center) EDT Outpatient<td Attender: Yassine 11/08/2019 S VENEDOCIA ID="[id number]">OFFICE [facility] 01:00: 00 PM k (Pb [place]ling VISIT</td><td>[facility] EST - i Neighborhood POWER AND RECOVERY 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</td><td>[facility]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 11/08/2019 Health Center</td><td>11/08/2019</td><td><conten 01:14 :58 PM D Center) t EST i ID="[id number]">Otorhinolar s yngology - Nose Disorder</content>, o <content r ID="[id number]">Skin d Disorder Petechiae</content></td> e r P e t e c h i a e O t o r h i n o l a r y n g o l o g y - N o s e D i s o r d e r S k i n D i s o r d e r P e t e c h i a e O t o r h i n o l a r y n g o l o g y - N o s e D i s o r d e r S k i n D i s o r d e r P e t e c h i a e O t o r h i n o l a r y n g o l o g y - N o s e D i s o r d e r S k i n D i s o r d e r P e t e c h i a e O t o r h i n o l a r y n g o l o g y - N o s e D i s o r d e r S k i n D i s o r d e r P e t e c h i a e O t o r h i n o l a r y n g o l o g y - N o s e D i s o r d e r S k i n D i s o r d e r P e t e c h i a e O t o r h i n o l a r y n g o l o g y - N o s e D i s o r d e r S k i n D i s o r d e r P e t e c h i a e O t o r h i n o l a r y n g o l o g y - N o s e D i s o r d e r S k i n D i s o r d e r P e t e c h i a e O t o r h i n o l a r y n g o l o g y - N o s e D i s o r d e r S k i n D i s o r d e r P e t e c h i a e O t o r h i n o l a r y n g o l o g y - N o s e D i s o r d e r S k i n D i s o r d e r P e t e c h i a e O t o r h i n o l a r y n g o l o g y - N o s e D i s o r d e r S k i n D i s o r d e r P e t e c h i a e O t o r h i n o l a r y n g o l o g y - N o s e D i s o r d e r S k i n D i s o r d e r P e t e c h i a e O t o r h i n o l a r y n g o l o g y - N o s e D i s o r d e r S k i n D i s o r d e r P e t e c h i a e O t o r h i n o l a r y n g o l o g y - N o s e D i s o r d e r S k i n D i s o r d e r P e t e c h i a e O t o r h i n o l a r y n g o l o g y - N o s e D i s o r d e r S k i n D i s o r d e r P e t e c h i a e O t o r h i n o l a r y n g o l o g y - N o s e D i s o r d e r Skin Disorder Petechiae Otorhinolaryngology - Nose Disorder Skin Disorder Petechiae Otorhinolaryngology - Nose Disorder Skin Disorder Petechiae Otorhinolaryngology - Nose Disorder Skin Disorder Petechiae Otorhinolaryngology - Nose Disorder Skin Disorder Petechiae Otorhinolaryngology - Nose Disorder Skin Disorder Petechiae Otorhinolaryngology - Nose Disorder Skin Disorder Petechiae Otorhinolaryngology - Nose Disorder Skin Disorder Petechiae Otorhinolaryngology - Nose Disorder Skin Disorder Petechiae Otorhinolaryngology - Nose Disorder Skin Disorder Petechiae Otorhinolaryngology - Nose Disorder Skin Disorder Petechiae Otorhinolaryngology - Nose Disorder Skin Disorder Petechiae Otorhinolaryngology - Nose Disorder Skin Disorder Petechiae Otorhinolaryngology - Nose Disorder Skin Disorder Petechiae Otorhinolaryngology - Nose Disorder Skin Disorder Petechiae Otorhinolaryngology - Nose Disorder Outpatient<td Attender: Yassine 10/30/2019 VENEDOCIA ID="[id number]">[facility] 04:30: 00 PM ([place] VISIT</td><td>VANESAEstefany PIEDRA IA Health EST - Neighborhood MD</td><td>[facility] 10/30/2019 Health Center</td><td>10/30/2019</td><td></td> 05:20:4 1 PM Center) EST Outpatient<td Attender: Yassine 10/30/2019 Jazmyn SHIRLEY ID="[id number]">OFFICE [facility] 03:00: 00 PM k ([place] VISIT</td><td>[facility] EST - i Neighborhood POWER AND RECOVERY 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</td><td>[facility]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 10/30/2019 n Health Center</td><td>10/30/2019</td><td><conten 03:22 :52 PM D Center) t EST i ID="[id number]">Nonorganic s Sleep Apnea</content>, <content o ID="[id number]">Skin r Disorder Petechiae</content></td> d e r P e t e c h i a e N o n o r g a n i c S l e e p A p n e a S k i n D i s o r d e r P e t e c h i a e N o n o r g a n i c S l e e p A p n e a S k i n D i s o r d e r P e t e c h i a e N o n o r g a n i c S l e e p A p n e a S k i n D i s o r d e r P e t e c h i a e N o n o r g a n i c S l e e p A p n e a S k i n D i s o r d e r P e t e c h i a e N o n o r g a n i c S l e e p A p n e a S k i n D i s o r d e r P e t e c h i a e N o n o r g a n i c S l e e p A p n e a S k i n D i s o r d e r P e t e c h i a e N o n o r g a n i c S l e e p A p n e a S k i n D i s o r d e r P e t e c h i a e N o n o r g a n i c S l e e p A p n e a S k i n D i s o r d e r P e t e c h i a e N o n o r g a n i c S l e e p A p n e a S k i n D i s o r d e r P e t e c h i a e N o n o r g a n i c S l e e p A p n e a S k i n D i s o r d e r P e t e c h i a e N o n o r g a n i c S l e e p A p n e a S k i n D i s o r d e r P e t e c h i a e N o n o r g a n i c S l e e p A p n e a S k i n D i s o r d e r P e t e c h i a e N o n o r g a n i c S l e e p A p n e a S k i n D i s o r d e r P e t e c h i a e N o n o r g a n i c S l e e p A p n e a S k i n D i s o r d e r P e t e c h i a e N o n o r g a n i c S l e e p A p n e a S k i n D i s o r d e r P e t e c h i a e N o n o r g a n i c S l e e p A p n e a S k i n D i s o r d e r P e t e c h i a e N o n o r g a n i c S l e e p A p n e a Skin Disorder 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 EST [facility]</td><td>[facility] Health Center</td><td>10/03/2019</td><td></td> 11:59:0 0 PM Center) EST Outpatient<td Attender: Yassine 10/01/2019 FERN ID="[id number]">PATIENT [facility] 11:10 :00 AM (Pb [place] ADVOCACY</td><td>[facility]</td><td>[facility] 2019 Health Center</td><td>10/01/2019</td><td></td> 11:59:0 0 PM Center) EST Outpatient<td Attender: Yassine 09/26/2019 FERN ID="[id number]">THERAPY [facility] 04:00 :00 PM (Pb [place] </td><td>P[facility]Y [facility] EST - [facility]</td><td>[facility] LMHC Center 0 Health Center</td><td>09/26/2019</td><td></td> 11:59:0 0 PM Center) EST Outpatient<td Attender: Yassine 09/26/2019 VENEDOCIA ID="[id number]">PATIENT [facility] 01:50 :00 PM (Pb [place] ADVOCACY</td><td>[facility]</td><td>[facility] 2019 Health Center</td><td>09/26/2019</td><td></td> 11:59:0 0 PM Center) EST Outpatient<td Attender: Yassine 09/25/2019 [facility] ID="[id number]">OFFICE [facility] 01:00: 00 PM y (Pb [place] VISIT</td><td>[facility] EST - p Neighborhood POWER AND RECOVERY 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</td><td>[facility]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 09/25/2019 e Health Center</td><td>09/25/2019</td><td><conten 01:28 :58 PM r Center) t EST l ID="[id number]">Earache</co i ntent>, <content p ID="[id number]">Leukopenia< i /content>, <content d ID="[id number]">Hyperlipide e annemarie</content></td> m i a L e u k o p e n i a E a r a c h e H y p e r l i p i d e m i a L e u k o p e n i a E a r a c h e H y p e r l i p i d e m i a L e u k o p e n i a E a r a c h e H y p e r l i p i d e m i a L e u k o p e n i a E a r a c h e H y p e r l i p i d e m i a L e u k o p e n i a E a r a c h e H y p e r l i p i d e m i a L e u k o p e n i a E a r a c h e H y p e r l i p i d e m i a L e u k o p e n i a E a r a c h e H y p e r l i p i d e m i a L e u k o p e n i a E a r a c h e H y p e r l i p i d e m i a L e u k o p e n i a E a r a c h e H y p e r l i p i d e m i a L e u k o p e n i a E a r a c h e H y p e r l i p i d e m i a L e u k o p e n i a E a r a c h e H y p e r l i p i d e m i a L e u k o p e n i a E a r a c h e H y p e r l i p i d e m i a L e u k o p e n i a E a r a c h e H y p e r l i p i d e m i a L e u k o p e n i a E a r a c h e H y p e r l i p i d e m i a L e u k o p e n i a E a r a c h e H y p e r l i p i d e m i a L e u k o p e n i a E a r a c h e H y p e r l i p i d e m i a L e u k o p e n i a E a r a c h e H y p e r l i p i d e m i a L e u k o p e n i a E a r a c h e H y p e r l i p i d e m i a L e u k o p e n i a E a r a c h e H y p e r l i p i d e m i a L e u k o p e n i a E a r a c h e H y p e r l i p i d e m i a L e u k o p e n i a E a r a c h e H y p e r l i p i d e m i a L e u k o p e n i a E a r a c h e Hyperlipidemia Leukopenia Earache Hyperlipidemia Leukopenia [place]ache Hyperlipidemia Leukopenia [place] Hyperlipidemia Leukopenia [place] Hyperlipidemia Leukopenia [place] Hyperlipidemia Leukopenia [place] Hyperlipidemia Leukopenia [place] Hyperlipidemia Leukopenia [place] Hyperlipidemia Leukopenia [place] Hyperlipidemia Leukopenia [place] Hyperlipidemia Leukopenia [place] Hyperlipidemia Leukopenia [place] Hyperlipidemia Leukopenia [place] Hyperlipidemia Leukopenia [place] Hyperlipidemia Leukopenia [place] Hyperlipidemia Leukopenia [place] Hyperlipidemia Leukopenia [place] Hyperlipidemia Leukopenia [place] Hyperlipidemia Leukopenia [place] Hyperlipidemia Leukopenia [place] Hyperlipidemia Leukopenia [place] Hyperlipidemia Leukopenia [place] Outpatient<td Attender: Yassine 09/18/2019 FERN ID="[id number]">OFFICE [facility] 05:30: 00 PM ([place] VISIT</td><td>[facility] TADEO PIEDRA [facility] EST - [facility]</td><td>[facility] 09/18/2019 Health Center</td><td>09/18/2019</td><td></td> 07:15:0 9 PM Center) EST Outpatient<td Attender: Yassine 09/13/2019 FERN ID="[id number]">PATIENT [facility] 01:47 :00 PM (Pb [place] ADVOCACY</td><td>[facility] EST [facility]</td><td>[facility] 2019 Health Center</td><td>09/13/2019</td><td></td> 11:59:0 0 PM Center) EST Outpatient<td Attender: Yassine 09/13/2019 O VENEDOCIA ID="[id number]">OFFICE [facility] 01:30: 00 PM b ([place] VISIT</td><td>[facility] EST - e Neighborhood POWER AND RECOVERY 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</td><td>[facility]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 09/13/2019 s Health Center</td><td>09/13/2019</td><td><conten 01:54 :19 PM i Center) t EST t ID="[id number]">Obesity</co y ntent></td> O b e s i t y O b e s i t y O b e s i t y O b e s i t y O b e s i t y O b e s i t y O b e s i t y O b e s i t y O b e s i t y O b e s i t y O b e s i t y O b e s i t y O b e s i t y O b e s i t y O b e s i t y O b e s i t y O b e s i t y O b e s i t y O b e s i t y O b e s i t y O b e s i t y O b e s i t y O b e s i t y Obesity Obesity Obesity Obesity Obesity Obesity Obesity Obesity Obesity Obesity Obesity Obesity Obesity Obesity Obesity Obesity Obesity Obesity Obesity Obesity Obesity Obesity Obesity Obesity Outpatient<td Attender: Yassine 09/04/2019 FERN ID="[id number]">*[facility] 12:16:00 PM ([place] Show*</td><td>IR[facility] EST - Neighborhood POWER AND RECOVERY 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</td><td>[facility]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 09/04/2019 Health Center</td><td>09/04/2019</td><td></td> 11:59:0 0 PM Center) EST Outpatient<td Attender: Yassine 08/21/2019 VENEDOCIA ID="[id number]">THERAP [facility] 05:30: 00 PM ([place]</td><td>VANESAEstefany PIEDRA MD Health EST - Neighborhood MD</td><td>[facility] 08/21/2019 Health Center</td><td>08/21/2019</td><td></td> 05:39:2 9 PM Center) EST Outpatient<td Attender: Yassine 08/15/2019 FERN ID="[id number]">*[facility] 02:30: 00 PM ([place] Update*</td><td>[facility] EST - Neighborhood POWER AND RECOVERY 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</td><td>[facility]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 08/15/2019 Health Center</td><td>08/15/2019</td><td></td> 11:59:0 0 PM Center) EST Outpatient<td Attender: Yassine 08/01/2019 FERN ID="[id number]">*[facility] 04:46:00 PM ([place] Show*</td><td>[facility] EST - Neighborhood POWER AND RECOVERY 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</td><td>[facility]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 08/01/2019 Health Center</td><td>08/01/2019</td><td></td> 11:59:0 0 PM Center) EST Outpatient<td Attender: Yassine 07/31/2019 FERN ID="[id number]">THERAP [facility] 04:30: 00 PM ([place] Y</td><td>[facility] TADEO PIEDRA MD [facility] EST - Neighborhood </td><td>[facility] 07/31/2019 Health Center</td><td>07/31/2019</td><td></td> 06:33:1 4 PM Center) EST (DENTAL) Dental Exam [place] 07/06/2019 eCW3 ([facility] 12:00:00 AM [facility] EDT - Care) Clinic A28 07/06/2019 12:00:00 AM EDT Outpatient<td Attender: Yassine 07/05/2019 FERN ID="[id number]">OFFICE [facility] 11:00: 00 AM ([place] VISIT</td><td>[facility] EDT - Neighborhood POWER AND RECOVERY 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</td><td>[facility]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 07/05/2019 Health Center</td><td>07/05/2019</td><td></td> 11:23:2 7 AM Center) EDT Outpatient<td Attender: Yassine 07/03/2019 FERN ID="[id number]">OFFICE [facility] 06:00: 00 PM ([place] VISIT</td><td>[facility] TADEO PIEDRA MD Health EDT - Neighborhood MD</td><td>[facility] 07/03/2019 Health Center</td><td>07/03/2019</td><td></td> 06:00:4 3 PM Center) EDT Outpatient<td Attender: Yassine 06/21/2019 FERN ID="[id number]">*Phone [facility] 04:26: 00 PM ([place] *</td><td>VANESAEstefany PIEDRA MD Health EDT - Neighborhood MD</td><td>[facility] 06/21/2019 Health Center</td><td>06/21/2019</td><td></td> 11:59:0 0 PM Center) EDT Outpatient<td Attender: Yassine 06/21/2019 H FERN ID="[id number]">OFFICE [facility] 10:00: 00 AM e ([place] VISIT</td><td>[facility] EDT - p Neighborhood POWER AND RECOVERY 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</td><td>[facility]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 06/21/2019 a Health Center</td><td>06/21/2019</td><td><edwar 10:14: 01 AM t Center) nt EDT i ID="[id number]">Hepatitis t a Virus ('infectious')</content>, i <content s ID="[id number]">Obesity</c a ontent></td> V i r u s ( ' i n f e c t i o u s ' ) H e p a t i t i s a V i r u s ( ' i n f e c t i o u s ' ) H e p a t i t i s a V i r u s ( ' i n f e c t i o u s ' ) H e p a t i t i s a V i r u s ( ' i n f e c t i o u s ' ) H e p a t i t i s a V i r u s ( ' i n f e c t i o u s ' ) H e p a t i t i s a V i r u s ( ' i n f e c t i o u s ' ) H e p a t i t i s a V i r u s ( ' i n f e c t i o u s ' ) H e p a t i t i s a V i r u s ( ' i n f e c t i o u s ' ) H e p a t i t i s a V i r u s ( ' i n f e c t i o u s ' ) H e p a t i t i s a V i r u s ( ' i n f e c t i o u s ' ) H e p a t i t i s a V i r u s ( ' i n f e c t i o u s ' ) H e p a t i t i s a V i r u s ( ' i n f e c t i o u s ' ) H e p a t i t i s a V i r u s ( ' i n f e c t i o u s ' ) H e p a t i t i s a V i r u s ( ' i n f e c t i o u s ' ) H e p a t i t i s a V i r u s ( ' i n f e c t i o u s ' ) H e p a t i t i s a V i r u s ( ' i n f e c t i o u s ' ) H e p a t i t i s a V i r u s ( ' i n f e c t i o u s ' ) H e p a t i t i s a V i r u s ( ' i n f e c t i o u s ' ) H e p a t i t i s a V i r u s ( ' i n f e c t i o u s ' ) H e p a t i t i s a V i r u s ( ' i n f e c t i o u s ' ) H e p a t i t i s a V i r u s ( ' i n f e c t i o u s ' ) H e p a t i t i s a V i r u s ( ' i n f e c t i o u s ' ) H e p a t i t i s a V i r u s ( ' i n f e c t i o u s ' ) H e p a t i t i s a V i r u s ( ' i n f e c t i o u s ' ) H e p a t i t i s a V i r u s ( ' i n f e c t i o u s ' ) H e p a t i t i s a V i r u s ( ' i n f e c t i o u s ' ) H e p a t i t i s a V i r u s ( ' i n f e c t i o u s ' ) H e p a t i t i s a V i r u s ( ' i n f e c t i o u s ' ) H e p a t i t i s a V i r u s ( ' i n f e c t i o u s ' ) H e p a t i t i s a V i r u s ( ' i n f e c t i o u s ' ) H e p a t i t i s a V i r u s ( ' i n f e c t i o u s ' ) H e p a t i t i s a V i r u s ( ' i n f e c t i o u s ' ) O b e s i t y O b e s i t y O b e s i t y O b e s i t y O b e s i t y O b e s i t y O b e s i t y O b e s i t y O b e s i t y O b e s i t y O b e s i t y O b e s i t y O b e s i t y O b e s i t y O b e s i t y O b e s i t y O b e s i t y O b e s i t y O b e s i t y O b e s i t y O b e s i t y O b e s i t y O b e s i t y O b e s i t y O b e s i t y O b e s i t y O b e s i t y O b e s i t y O b e s i t y O b e s i t y O b e s i t y O b e s i t y Hepatitis a Virus ('infectious') Hepatitis a Virus ('infectious') Hepatitis a Virus ('infectious') Hepatitis a Virus ('infectious') Hepatitis a Virus ('infectious') Hepatitis a Virus ('infectious') Hepatitis a Virus ('infectious') Hepatitis a Virus ('infectious') Hepatitis a Virus ('infectious') Hepatitis a Virus ('infectious') Hepatitis a Virus ('infectious') Hepatitis a Virus ('infectious') Hepatitis a Virus ('infectious') Hepatitis a Virus ('infectious') Hepatitis a Virus ('infectious') Hepatitis a Virus ('infectious') Hepatitis a Virus ('infectious') Hepatitis a Virus ('infectious') Hepatitis a Virus ('infectious') Hepatitis a Virus ('infectious') Hepatitis a Virus ('infectious') Hepatitis a Virus ('infectious') Hepatitis a Virus ('infectious') Hepatitis a Virus ('infectious') Hepatitis a Virus ('infectious') Hepatitis a Virus ('infectious') Hepatitis a Virus ('infectious') Hepatitis a Virus ('infectious') Hepatitis a Virus ('infectious') Hepatitis a Virus ('infectious') Hepatitis a Virus ('infectious') Hepatitis a Virus ('infectious') Obesity Obesity Obesity Obesity Obesity Obesity Obesity Obesity Obesity Obesity Obesity Obesity Obesity Obesity Obesity Obesity Obesity Obesity Obesity Obesity Obesity Obesity Obesity Obesity Obesity Obesity Obesity Obesity Obesity Obesity Obesity Obesity Outpatient<td Attender: Yassine 06/05/2019 VENEDOCIA ID="[id number]">OFFICE [facility] 06:00: 00 PM ([place] VISIT</td><td>VANESA PIEDRA MD [facility] EDT - [facility] MD</td><td>[facility] 06/05/2019 Health Center</td><td>06/05/2019</td><td></td> 05:53:4 1 PM Center) EDT Outpatient<td Attender: 05/09/2019 VENEDOCIA ID="[id number]">*[facility]OOKE 09:21 :00 AM ([place] *</td><td>[facility]</td><td> [facility] EDT - Neighborhood [facility] 05/09/2019 Health </td><td>05/09/2019</td><td></td> 11:59:00 PM Center) EDT Outpatient<td Attender: Yassine 05/04/2019 C VENEDOCIA ID="[id number]">OFFICE [facility] 01:00: 00 PM e ([place] VISIT</td><td>[facility] EDT - [facility]</td><td>[facility] 05/04/2019 v Health Center</td><td>05/04/2019</td><td><conten 01:18 :12 PM i Center) t EDT c ID="[id number]">Cervicalgia a </content>, <content l ID="[id number]">Anemia</con g tent>, <content i ID="[id number]">Obesity</co a ntent></td> C e r v i c a l g i a C e r v i c a l g i a C e r v i c a l g i a C e r v i c a l g i a C e r v i c a l g i a C e r v i c a l g i a C e r v i c a l g i a C e r v i c a l g i a C e r v i c a l g i a C e r v i c a l g i a C e r v i c a l g i a C e r v i c a l g i a C e r v i c a l g i a C e r v i c a l g i a C e r v i c a l g i a C e r v i c a l g i a C e r v i c a l g i a C e r v i c a l g i a C e r v i c a l g i a C e r v i c a l g i a C e r v i c a l g i a C e r v i c a l g i a C e r v i c a l g i a C e r v i c a l g i a C e r v i c a l g i a C e r v i c a l g i a C e r v i c a l g i a C e r v i c a l g i a C e r v i c a l g i a C e r v i c a l g i a C e r v i c a l g i a C e r v i c a l g i a C e r v i c a l g i a C e r v i c a l g i a C e r v i c a l g i a O b e s i t y A n e m i a O b e s i t y A n e m i a O b e s i t y A n e m i a O b e s i t y A n e m i a O b e s i t y A n e m i a O b e s i t y A n e m i a O b e s i t y A n e m i a O b e s i t y A n e m i a O b e s i t y A n e m i a O b e s i t y A n e m i a O b e s i t y A n e m i a O b e s i t y A n e m i a O b e s i t y A n e m i a O b e s i t y A n e m i a O b e s i t y A n e m i a O b e s i t y A n e m i a O b e s i t y A n e m i a O b e s i t y A n e m i a O b e s i t y A n e m i a O b e s i t y A n e m i a O b e s i t y A n e m i a O b e s i t y A n e m i a O b e s i t y A n e m i a O b e s i t y A n e m i a O b e s i t y A n e m i a O b e s i t y A n e m i a O b e s i t y A n e m i a O b e s i t y A n e m i a O b e s i t y A n e m i a O b e s i t y A n e m i a O b e s i t y A n e m i a O b e s i t y A n e m i a O b e s i t y A n e m i a O b e s i t y A n e m i a O b e s i t y A n e m i a O b e s i t y A n e m i a Cervicalgia Cervicalgia Cervicalgia Cervicalgia Cervicalgia Cervicalgia Cervicalgia Cervicalgia Cervicalgia Cervicalgia Cervicalgia Cervicalgia Cervicalgia Cervicalgia Cervicalgia Cervicalgia Cervicalgia Cervicalgia Cervicalgia Cervicalgia Cervicalgia Cervicalgia Cervicalgia Cervicalgia Cervicalgia Cervicalgia Cervicalgia Cervicalgia Cervicalgia Cervicalgia Cervicalgia Cervicalgia Cervicalgia Cervicalgia Cervicalgia Cervicalgia Obesity Anemia Obesity Anemia Obesity Anemia Obesity Anemia Obesity Anemia Obesity Anemia Obesity Anemia Obesity Anemia Obesity Anemia Obesity Anemia Obesity Anemia Obesity Anemia Obesity Anemia Obesity Anemia Obesity Anemia Obesity Anemia Obesity Anemia Obesity Anemia Obesity Anemia Obesity Anemia Obesity Anemia Obesity Anemia Obesity Anemia Obesity Anemia Obesity Anemia Obesity Anemia Obesity Anemia Obesity Anemia Obesity Anemia Obesity Anemia Obesity Anemia Obesity Anemia Obesity Anemia Obesity Anemia Obesity Anemia Obesity Anemia Outpatient<td Attender: Yassine 05/01/2019 VENEDOCIA ID="[id number]">OFFICE [facility] 05:30: 00 PM ([place] VISIT</td><td>VANESA PIEDRA MD Health EDT - [facility] </td><td>[facility] 05/01/2019 Health Center</td><td>05/01/2019</td><td></td> 05:16:0 3 PM Center) EDT Emergency H 04/27/2019 [facility] 08:25:00 PM Medical EDT - Center 04/27/2019 10:19:00 PM EDT Patient discharged. Medications Medication Brand Start Product Dose Route Administrative Pharmacy [facility] [place] Indications Reaction Description Data Name Date Form Instructions Instructions Source(s) Clonazepam clonaz 03/11/ UNIT active clonazeP AM FERN 0.5 MG Oral ePAM 2020 ([place] Tablet 0.5MG 12:00: Nitesh clonazePAM Oral 00 AM [place] 0.5MG Oral Tablet EDT od Heal th Tablet Center) Clonazepam clonaz 02/11/ UNIT suspend clonaze DAVINA FERN 0.5 MG Oral ePAM 2019 ed ([place] Tablet 0.5MG 12:00: Nitesh clonazePAM Oral 00 AM [place] 0.5MG Oral Tablet EDT od Heal th Tablet Center) Bactrim DS Bactri 02/03/ UNIT 1 complet Bactrim FERN 800-160MG m DS 2020 ed ([place] Oral Tablet 800-16 12:00: Jose Raul on 0MG 00 AM [place] Oral EDT od Health Tablet Center) Ascorbic Ascorb 01/29/ UNIT 1 active Ascorbic G REENWAY Acid 500 MG ic 2020 Acid ([place] Oral Tablet Acid 12:00: Nitesh Ascorbic 500MG 00 AM Neighbor[facility] o Acid 500MG Oral EDT od Health Oral Tablet Tablet Center ) Macrobid Macrob 01/29/ UNIT 1 suspend Macrobid FERN 100MG Oral id 2019 ed ([place] Capsule 100MG 12:00: Nitesh Oral 00 AM [place] Capsul EDT od Health e Center) ferrous Ferrou 01/15/ UNIT 1 active Ferrous GRE ENWAY sulfate 325 s 2020 Sulfate (Moun t MG Oral Sulfat 12:00: Nitesh Tablet e 325 00 AM [place] Ferrous (65 EDT od Health Sulfate 325 Fe)MG Center) (65 Fe)MG Oral Oral Tablet Tablet Amitriptyli Amitri 01/14/ UNIT active Amitrip tylin FERN ne ptylin 2020 e HCl ([place] Hydrochlori e HCl 12:00: Verno n de 25 MG 25MG 00 AM [place] Oral Tablet Oral EDT od Healt h Amitriptyli Tablet Center ) ne HCl 25MG Oral Tablet Clonazepam clonaz 01/14/ UNIT suspend clonaze DAVINA FERN 0.5 MG Oral ePAM 2019 ed ([place] Tablet 0.5MG 12:00: Nitesh clonazePAM Oral 00 AM [place]ighbor [facility] 0.5MG Oral Tablet EDT od Heal th Tablet Center) 24 HR Metopr 01/14/ UNIT 1 active Metoprolol GR EENWAY metoprolol olol 2020 Succinate ER ( [place] succinate Succin 12:00: Nitesh 25 MG ate ER 00 AM [place] Extended 25MG EDT od Health Release Oral Center) Oral Tablet Tablet Metoprolol Extend Succinate ed ER 25MG Releas Oral Tablet e 24 Extended Hour Release 24 Hour Clonazepam clonaz 11/26/ UNIT suspend clonaze DAVINA FERN 0.5 MG Oral ePAM 2019 ed ([place] Tablet 0.5MG 12:00: Nitesh clonazePAM Oral 00 AM [place] [facility] 0.5MG Oral Tablet EDT od Heal th Tablet Center) Clonazepam clonaz 10/30/ UNIT suspend clonaze DAVINA FERN 0.5 MG Oral ePAM 2019 ed ([place] Tablet 0.5MG 12:00: Nitesh clonazePAM Oral 00 AM [place] 0.5MG Oral Tablet EST od Heal th Tablet Center) ferrous Ferrou 10/30/ UNIT 1 suspend Ferrous GR EENWAY sulfate 325 s 2019 ed Sulfate (Moun t MG Oral Sulfat 12:00: Nitesh Tablet e 325 00 AM [place] Ferrous (65 EST od Health Sulfate 325 Fe)MG Center) (65 Fe)MG Oral Oral Tablet Tablet Aspirin 81 Aspiri 09/18/ UNIT 1 active Miniprin FERN MG Delayed n 81 2019 ([place] Release Oral 12:00: Nitesh Oral Tablet Tablet 00 AM Neigh borho Aspirin 81 [place] EST od Heal th Oral Tablet d Center) Delayed Releas Release e Amitriptyli Amitri 09/18/ UNIT suspend Amitri ptylin FERN ne ptylin 2019 ed e HCl ([place] Hydrochlori e HCl 12:00: Verno n de 25 MG 25MG 00 AM [place] Oral Tablet Oral EST od Healt h Amitriptyli Tablet Center ) ne HCl 25MG Oral Tablet Clonazepam clonaz 09/18/ UNIT suspend clonaze DAVINA FERN 0.5 MG Oral ePAM 2019 ed ([place] Tablet 0.5MG 12:00: Nitesh clonazePAM Oral 00 AM [place] 0.5MG Oral Tablet EST od Heal th Tablet Center) Aspirin 81 Aspiri 09/13/ UNIT 1 active Miniprin FERN MG Delayed n 81 2020 ([place] Release Oral 12:00: Nitesh Oral Tablet Tablet 00 AM [place] Aspirin 81 [place] EST od Heal th Oral Tablet d [place]) Delayed Releas Release e Clonazepam clonaz UNIT 1 suspend clonaze DAVINA FERN 0.5 MG Oral ePAM 2019 ed ([place] Tablet 0.5MG 12:00: Nitesh clonazePAM Oral 00 AM [place] [facility] 0.5MG Oral Tablet EST od Heal th Tablet Center) Acetaminoph Butalb UNIT active Butalbi rey-A FERN en 325 MG / ital-A 2019 PAP-Caffein e ([facility] butalbital PAP-Ca 12:00: Verno n 50 MG / ffeine 00 AM Neighborh o Caffeine 40 50-325 EST od Hea lth MG Oral -40MG [place]) Tablet Oral Butalbital- Tablet APAP-Caffei ne 50-325-40MG Oral Tablet Penicillin Penici .0 active Penicill in V eCW3 V Potassium llin V 2019 {tabl Potassium (Bravo 500 MG Oral Potass 12:00: et} 500 MG Ri isacc Tablet ium 00 AM Health 500 MG EDT Care) Penicillin Penici .0 active Penicill in V eCW3 V Potassium llin V 2019 {tabl Potassium (Bravo 500 MG Oral Potass 12:00: et} 500 MG Ri isacc Tablet ium 00 AM Health 500 MG EDT Care) ferrous Ferrou 07/05/ UNIT 1 suspend Ferrous GR EENWAY sulfate 325 s 2019 ed Sulfate (Moun t MG Oral Sulfat 12:00: Nitesh Tablet e 325 00 AM [facility] Ferrous (65 EDT od Health Sulfate 325 Fe)MG [place]) (65 Fe)MG Oral Oral Tablet Tablet Ascorbic Ascorb 07/05/ UNIT 1 suspend Ascorbic FERN Acid 500 MG ic 2019 ed Acid ([place] Oral Tablet Acid 12:00: Nitesh Ascorbic 500MG 00 AM Neighbor[facility] o Acid 500MG Oral EDT od Health Oral Tablet Tablet Center ) Eliquis 5MG Eliqui 07/05/ UNIT 1 suspend Eliqui s FERN Oral Tablet s 5MG 2019 ed ([place] Oral 12:00: Nitesh Tablet 00 AM [place] EDT od Health Center) Amitriptyli Amitri 06/21/ UNIT suspend Amitri ptylin FERN ne ptylin 2019 ed e HCl ([facility] Hydrochlori e HCl 12:00: Verno n de 25 MG 25MG 00 AM [place] Oral Tablet Oral EDT od Healt h Amitriptyli Tablet Center ) ne HCl 25MG Oral Tablet Clonazepam clonaz 06/21/ UNIT 1 suspend clonaze DAVINA FERN 0.5 MG Oral ePAM 2018 ed ([place] Tablet 0.5MG 12:00: Nitesh clonazePAM Oral 00 AM Neighbor ho 0.5MG Oral Tablet EDT od [facility] Tablet Center) Eliquis 5MG Eliqui 05/04/ UNIT 1 suspend Eliqui s FERN Oral Tablet s 5MG 2018 ed ([place] Oral 12:00: Nitesh Tablet 00 AM [place] EDT od Health Center) Ibuprofen Ibupro 05/04/ UNIT 1 complet Ibuprofe n FERN 600 MG Oral fen 2018 ed ([place] Tablet 600MG 12:00: Nitesh Ibuprofen Oral 00 AM Neighborh o 600MG Oral Tablet EDT od [facility] Tablet Center) Clonazepam clonaz UNIT 1 suspend clonaze DAVINA FERN 0.5 MG Oral ePAM 2018 ed ([place] Tablet 0.5MG 12:00: Nitesh clonazePAM Oral 00 AM Neighbor ho 0.5MG Oral Tablet EDT od [facility] Tablet Center) Clonazepam clonaz UNIT 1 suspend clonaze DAVINA FERN 0.5 MG Oral ePAM 2018 ed ([place] Tablet 0.5MG 12:00: Nitesh clonazePAM Oral 00 AM Neighbor ho 0.5MG Oral Tablet EDT od [facility] Tablet Center) Amitriptyli Amitri UNIT suspend Amitri ptylin FERN ne ptylin 2018 ed e HCl ([facility] Hydrochlori e HCl 12:00: Verno n de 25 MG 25MG 00 AM [place] Oral Tablet Oral EDT od Healt Amitriptyli Tablet Center ) ne HCl 25MG Oral Tablet ferrous Ferrou 01/12/ UNIT 1 suspend Ferrous GR EENWAY sulfate 325 s 2018 ed Sulfate (Moun t MG Oral Sulfat 12:00: Nitesh Tablet e 325 00 AM [place] Ferrous (65 EDT od Health Sulfate 325 Fe)MG Center) (65 Fe)MG Oral Oral Tablet Tablet Eliquis 5MG Eliqui 12/29/ UNIT 1 suspend Eliqui s FERN Oral Tablet s 5MG 2019 ed ([place] Oral 12:00: Nitesh Tablet 00 AM [place] EDT od Health Center) Ascorbic Ascorb 08/04/ UNIT 1 suspend Ascorbic FERN Acid 500 MG ic 2018 ed Acid ([place] Oral Tablet Acid 12:00: Nitesh Ascorbic 500MG 00 AM Neighborh o Acid 500MG Oral EST od Health Oral Tablet Tablet Center ) Insurance Providers Payer name Policy type / Policy ID Covered Covered democrat's Policy Plan Coverage type democrat ID relationship to Vargas Information vargas MVP MEDICAID [id number] O MVP Health Individual 0 Self 0 Plan of [place] MVP Health Individual 0 Self 0 Plan of [place] MVP Health Individual 0 Self 0 Plan of [place] MVP Health Individual 0 Self 0 Plan of [place] MVP Health Individual 0 Self 0 Plan of [place] MVP Health Individual 0 Self 0 Plan of [place] MVP Health Individual 0 Self 0 Plan of [place] MVP Health Individual 0 Self 0 Plan of [place] MVP Health Individual 0 Self 0 Plan of [place] MVP Health Individual 0 Self 0 Plan of [place] MVP Health Individual 0 Self 0 Plan of [place] MVP Health Individual 0 Self 0 Plan of [place] MVP Health Individual 0 Self 0 Plan of [place] MVP Health Individual 0 Self 0 Plan of [place] MVP Health Individual 0 Self 0 Plan of [place] MVP Health Individual 0 Self 0 Plan of [place] MVP Health Individual 0 Self 0 Plan of [place] MVP Health Individual 0 Self 0 Plan of [place] MVP Health Individual 0 Self 0 Plan of [place] MVP Health Individual 0 Self 0 Plan of [place] MVP Health Individual 0 Self 0 Plan of [place] MVP Health Individual 0 Self 0 Plan of [place] MVP Health Individual 0 Self 0 Plan of [place] MVP Health Individual 0 Self 0 Plan of [place] MVP Health Individual 0 Self 0 Plan of [place] MVP Health Individual 0 Self 0 Plan of [place] MVP Health Individual 0 Self 0 Plan of [place] MVP Health Individual 0 Self 0 Plan of [place] MVP Health Individual 0 Self 0 Plan of [place] MVP Health Individual 0 Self 0 Plan of [place] MVP Health Individual 0 Self 0 Plan of [place] MVP Health Individual 0 Self 0 Plan of [place] MVP Health Individual 0 Self 0 Plan of [place] MVP Health Individual 0 Self 0 Plan of [place] MVP Health Individual 0 Self 0 Plan of [place] MVP Health Individual 0 Self 0 Plan of [place] MVP Health Individual 0 Self 0 Plan of [place] MVP Health Individual 0 Self 0 Plan of [place] MVP/HHP O [id number] 01 [id number] 200 O BRAVO HEALTH O [id number] 01 [id number] MVP Health Individual 0 Self 0 Plan of [place] Policy [place] MVP Health Individual 0 Self 0 Plan of [place] MVP Health Individual 0 Self 0 Plan of [place] MVP Health Individual 0 Self 0 Plan of Policy [place] MVP Health Individual 0 Self 0 Plan of Policy [place] MVP Health Individual 0 Self 0 Plan of Policy [place] MVP Health Individual 0 Self 0 Plan of [place] MVP Health Individual 0 Self 0 Plan of Policy [place] MVP Health Individual 0 Self 0 Plan of [place] MVP Health Individual 0 Self 0 Plan of [facility] HEALTH [id number] self [id number] MVP Health Individual 0 Self 0 Plan of [place] MVP Health Individual 0 Self 0 Plan of [place] MVP Health Individual 0 Self 0 Plan of [place] MVP Health Individual 0 Self 0 Plan of [place] MVP Health Individual 0 Self 0 Plan of Policy [place] MVP Health Individual 0 Self 0 Plan of [place] MVP Health Individual 0 Self 0 Plan of [place] Policy [place] MVP Health Individual 0 Self 0 Plan of Policy [place] MVP Health Individual 0 Self 0 Plan of Policy [place] MVP Medicaid [id number] S [id number] Managed Care Medicaid [id number] S [id number] Regular Clinic Visit Dental [id number] S [id number]-1 [employer] MKD [place] [id number] S [id number] Options MKD [place] [id number] S [id number] 200 Vision MKD MVP Health Individual 0 Self 0 Plan of [place] MVP Health Individual 0 Self 0 Plan of [place] [id number] SP [id number] HMO MVP Health Individual 0 Self 0 Plan of Policy [place] MVP Health Individual 0 Self 0 Plan of [place] Policy [place] Problems, Conditions, and Diagnoses Code Display Name Description Problem Type Effective Data Sour ce(s) Dates 14802805 Hyperlipidemia Hyperlipidemia Problem 04/01/2020 GREENW AY ([place] (disorder) 12:00:00 AM [facility]) 790.4 Elevated Liver Elevated Liver Problem 04/01/2020 GREENW AY ([place] Enzymes Enzymes 12:00:00 AM [facility]) [id number] Atrial Atrial Problem 04/01/2020 FERN (Moun t fibrillation Fibrillation 12:00:00 AM [place] (disorder) [facility]) [id number] Hyperlipidemia Hyperlipidemia Problem 02/27/2020 GREENW AY ([place] (disorder) 12:00:00 AM [facility]) 790.4 Elevated Liver Elevated Liver Problem 02/27/2020 GREENW AY ([place] Enzymes Enzymes 12:00:00 AM [facility]) [id number] Atrial Atrial Problem 02/27/2020 FERN (Moun t fibrillation Fibrillation 12:00:00 AM [place] (disorder) [facility]) [id number] Hyperlipidemia Hyperlipidemia Problem 02/12/2020 GREENW AY ([place] (disorder) 12:00:00 AM [facility]) 790.4 Elevated Liver Elevated Liver Problem 02/12/2020 GREENW AY ([place] Enzymes Enzymes 12:00:00 AM [facility]) [id number] Atrial Atrial Problem 02/12/2020 FERN (Moun t fibrillation Fibrillation 12:00:00 AM [place] (disorder) [facility]) [id number] Hyperlipidemia Hyperlipidemia Problem 02/12/2020 GREENW AY ([place] (disorder) 12:00:00 AM [facility]) 790.4 Elevated Liver Elevated Liver Problem 02/12/2020 GREENW AY ([place] Enzymes Enzymes 12:00:00 AM [facility]) [id number] Atrial Atrial Problem 02/12/2020 [place] ([place] t fibrillation Fibrillation 12:00:00 AM [place] (disorder) [facility]) [id number] Hyperlipidemia Hyperlipidemia Problem 02/08/2020 [place] ([place] ([place]) 12:00:00 AM [facility]) 790.4 Elevated Liver Elevated Liver Problem 02/08/2020 [place] ([place] Enzymes Enzymes 12:00:00 AM [facility]) [id number] Atrial Atrial Problem 02/08/2020 [place] (Moun t fibrillation Fibrillation 12:00:00 AM [place] (disorder) [facility]) [id number] Hyperlipidemia Hyperlipidemia Problem 02/07/2020 [place] [facility] ([place] (disorder) 12:00:00 AM [facility]) 790.4 Elevated Liver Elevated Liver Problem 02/07/2020 [place] ([place] Enzymes Enzymes 12:00:00 AM [facility]) [id number] Atrial Atrial Problem 02/07/2020 FERN (Moun t fibrillation Fibrillation 12:00:00 AM Nitesh (disorder) [facility]) [id number] Hyperlipidemia Hyperlipidemia Problem 02/04/2020 [place] [facility] ([place] (disorder) 12:00:00 AM [facility]) 790.4 Elevated Liver Elevated Liver Problem 02/04/2020 [place] ([place] Enzymes Enzymes 12:00:00 AM [facility]) [id number] Atrial Atrial Problem 02/04/2020 [facility] (Moun t fibrillation Fibrillation 12:00:00 AM [place]itesh (disorder) [facility]) [id number] Hyperlipidemia Hyperlipidemia Problem 01/30/2020 [place] [facility] ([place] (disorder) 12:00:00 AM [facility]) 790.4 Elevated Liver Elevated Liver Problem 01/30/2020 [place] ([place] Enzymes Enzymes 12:00:00 AM [facility]) [id number] Atrial Atrial Problem 01/30/2020 F[place] (Moun t fibrillation Fibrillation 12:00:00 AM Nitesh (disorder) [facility]) [id number] Hyperlipidemia Hyperlipidemia Problem 01/22/2020 [place] [facility] ([place] (disorder) 12:00:00 AM [facility]) 790.4 Elevated Liver Elevated Liver Problem 01/22/2020 [place] ([place] Enzymes Enzymes 12:00:00 AM [facility]) 86762205 Atrial Atrial Problem 01/22/2020 F[facility] (Moun t fibrillation Fibrillation 12:00:00 AM Nitesh (disorder) [facility]) 11903530 Hyperlipidemia Hyperlipidemia Problem 01/16/2020 [place] [facility] ([place] (disorder) 12:00:00 AM [facility]) 790.4 Elevated Liver Elevated Liver Problem 01/16/2020 [place] ([place] Enzymes Enzymes 12:00:00 AM [facility]) 84765462 Atrial Atrial Problem 01/16/2020 FERN (Moun t fibrillation Fibrillation 12:00:00 AM [place] (disorder) [facility]) [id number] Hyperlipidemia Hyperlipidemia Problem 01/15/2020 [place] [facility] ([place] (disorder) 12:00:00 AM [facility]) 790.4 Elevated Liver Elevated Liver Problem 01/15/2020 [place] ([place] Enzymes Enzymes 12:00:00 AM [facility]) 03980227 Atrial Atrial Problem 01/15/2020 FERN (Moun t fibrillation Fibrillation 12:00:00 AM [place] (disorder) [facility]) 75945623 Hyperlipidemia Hyperlipidemia Problem 11/27/2019 [place] [facility] ([place] (disorder) 12:00:00 AM [facility]) 790.4 Elevated Liver Elevated Liver Problem 11/27/2019 [place] [facility] ([place] Enzymes Enzymes 12:00:00 AM [facility]) 77131003 Atrial Atrial Problem 11/27/2019 FERN (Moun t fibrillation Fibrillation 12:00:00 AM [place] (disorder) [facility]) 82153553 Hyperlipidemia Hyperlipidemia Problem 11/27/2019 [place] [facility] ([place] (disorder) 12:00:00 AM [facility]) 790.4 Elevated Liver Elevated Liver Problem 11/27/2019 [place] ([place] Enzymes Enzymes 12:00:00 AM [facility]) 64660057 Atrial Atrial Problem 11/27/2019 F[facility] (Moun t fibrillation Fibrillation 12:00:00 AM Nitesh (disorder) [facility]) 23934707 Hyperlipidemia Hyperlipidemia Problem 11/10/2019 [place] [facility] ([place] (disorder) 12:00:00 AM [facility]) 790.4 Elevated Liver Elevated Liver Problem 11/10/2019 [place] ([place] Enzymes Enzymes 12:00:00 AM [facility]) 09770048 Atrial Atrial Problem 11/10/2019 FERN (Moun t fibrillation Fibrillation 12:00:00 AM [place] (disorder) [facility]) 62389750 Hyperlipidemia Hyperlipidemia Problem 11/08/2019 [place] ([place] (disorder) 12:00:00 AM [facility]) 790.4 Elevated Liver Elevated Liver Problem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 nitrogen/Creatinin e Ratio ([facility] on e [Mass Ratio] in [facility] Serum or [facility]) Globulin 2.9 Globulin, FERN [Mass/volume] in g/dL Total ([facility] by [facility]) eGFR If Africn Am 105 eGFR If FERN mL/min/ Africn Am ([address]) eGFR If NonAfricn 91 eGFR If FERN Am mL/min/ NonAfricn Am ([address]) Albumin/Globulin 1.6 A/G Ratio FERN [Mass Ratio] in ([facility] or [facility]) ID Date Data Source [id number] 12/27/2019 03:49:00 PM EDT [facility] Name Value Range Interpretation Description Data Sup porting Code Source(s) Document(s ) 2019 Novel [facility] Coronavirus RNA Interpretation Unspecified Specimen Qualitative NOLVIA Probe Detection This lab was ordered by [facility] and reported by [facility]. ID Date Data Source [id number] 10/31/2019 02:37:00 PM EST FERN ([facility]) Name Value Range Interpretation Description Data Source(s ) Supporting Code Document(s ) Service See Note QuantiFERON FERN ([facility]) Note: The QuantiFERON-TB Gold Plus resul t is determined by subtractingthe Nil value from either TB antigen (Ag) tube. The mi togen tubeserves as a control for the test. QuantiFERON TB1 Ag 0.15 IU/mL QuantiFERON TB1 Ag [facility] ([facility]) QuantiFERON Incubation QuantiFERON FERN ([facility] Incubation performed. Incubation [facility]) QuantiFERON-TB Gold Negative QuantiFERON-TB Gold FERN ([facility] Plus Plus [facility]) QuantiFERON TB2 Ag 0.16 IU/mL QuantiFERON TB2 Ag [facility] ([facility]) Gamma interferon 0.16 IU/mL QuantiFERON Nil CURLEWW AY ([facility] background [facility] [Units/volume] in [facility]) Blood by Immunoassay QuantiFERON Mitogen >10.00 IU/mL QuantiFERON Mitog en [place] ([facility]) ID Date Data Source [id number] 09/13/2019 12:00:00 AM EST [place] ([facility]) Name Value Range Interpretation Description Data Source(s ) Supporting Code Document(s ) Thyrotropin 0.908 TSH [place]IA ([facility] [Units/volume] uIU/mL N[place]h in Serum or Neighborhood Plasma by [facility] [place]) Detection limit <= 0.05 mIU/L ID Date Data Source [id number] 09/13/2019 12:00:00 AM EST [place] ([facility]) Name Value Range Interpretation Description Data Source(s ) Supporting Code Document(s ) Hemoglobin 5.2 % Hemoglobin A1c V[place]ED[place]IA (Moun t A1c/Hemoglobi Nitesh n.total in Neighborhood Blood Health Center) Note: Prediabetes: 5.7 - 6.4 Diabetes: >6.4 Glycemic control for adults with diabetes: <7.0 ID Date Data Source [id number] 09/13/2019 12:00:00 AM EST FERN ([facility]) Name Value Range Interpretation Description Data Source(s ) Supporting Code Document(s ) Cholesterol 200 Above high Cholesterol, FERN [Mass/volume] mg/dL normal Total ([place] in Serum or [facility] Plasma Health Center) Triglyceride 101 Triglycerides FERN [Mass/volume] mg/dL ([place] in Serum or Neighborhood Plasma Health Center) Cholesterol in 52 HDL Cholesterol FERN HDL mg/dL ([place] [Mass/volume] [facility] in Serum or Health Center) Plasma Laboratory N/A Comment: FERN comment [Text] ([place] in Report [facility] Narrative [facility]) Cholesterol in 2.5 LDL/HDL Ratio FERN LDL/Cholestero ratio ([place] in HDL [Mass Neighborhood Ratio] in [facility] [place]) Serum or Plasma Note: LDL/HDL Ratio Men Women 1/2 Avg.Risk 1.0 1.5 Avg.Risk 3.6 3.2 2X Avg.Risk 6.2 5.0 3X Avg.Risk 8.0 6.1 Cholesterol in VLDL 20 mg/dL VLDL Cholesterol GRE ENWAY ([facility] [Mass/volume] in Jewel Nites[facility] orhood Serum or Plasma by Health Cent er) calculation Cholesterol in LDL 128 mg/dL Above high LDL Cholesterol GREE NWAY ([facility] [Mass/volume] in normal Calc Nitesh [facility] or[facility]negie Serum or Plasma by Health Cent er) calculation ID Date Data Source [id number] 09/13/2019 12:00:00 AM EST FERN ([facility] nt [facility]) Name Value Range Interpretation Description Data Source(s ) Supporting Code Document(s ) Calcium 9.9 mg/dL Calcium FERN ([facility] [Mass/volume Nitesh ] in Serum [facility] or Plasma Health Center) Glucose 82 mg/dL Glucose FERN ([facility] [Mass/volume Nitesh ] in Serum [facility] or Plasma [facility]) Urea 9 mg/dL BUN FERN ([facility] nitrogen Nitesh [Mass/volume Neighborhood ] in Serum Health Center) or Plasma Albumin 4.7 g/dL Albumin FERN ([facility] [Mass/volume Nitesh ] in Serum [facility] or Plasma Health Center) Note: Effective Osvaldo uary 20, 2020 Albumin reference interval will be changing to: Age Male Female 0 - 7 days 3.6 - 4.9 3.6 - 4.9 8 - 30 days 3.4 - 4.7 3.4 - 4.7 1 - 6 month 3.7 - 4.8 3.7 - 4.8 7 months - 2 years 3.9 - 5.0 3.9 - 5.0 3 - 5 years 4.0 - 5.0 4.0 - 5.0 6 - 12 years 4.1 - 5.0 4.0 - 5.0 13 - 30 years 4.1 - 5.2 3.9 - 5.0 31 - 50 years 4.0 - 5.0 3.8 - 4.8 51 - 60 years 3.8 - 4.9 3.8 - 4.9 61 - 70 years 3.8 - 4.8 3.8 - 4.8 71 - 80 years 3.7 - 4.7 3.7 - 4.7 81 - 89 years 3.6 - 4.6 3.6 - 4.6 >89 years 3.5 - 4.6 3.5 - 4.6 Protein [Mass/volume] in 7.8 g/dL Protein, Total FERN ([facility] Serum or Plasma [facility]) Alkaline phosphatase 98 IU/L Alkaline Phosphatas e FERN ([facility] activity/volume] in Serum [facility]) or Plasma Bilirubin.total <0.2 mg/dL Bilirubin, Total GREENW AY ([facility] [Mass/volume] in Serum or [facility]) Aspartate 14 IU/L AST (SGOT) FERN ([facility] aminotransferase [facility]) activity/volume] in Serum or Plasma Potassium [Moles/volume] 3.9 mmol/L Potassium GREE NWAY ([facility] in Serum or Plasma [facility]) Sodium [Moles/volume] in 142 mmol/L Sodium GREE NWAY ([facility] Serum or Plasma [facility]) Creatinine [Mass/volume] 0.85 mg/dL Creatinine GRE ENWAY ([facility] in Serum or Plasma [facility]) Chloride [Moles/volume] 102 mmol/L Chloride [address] ([facility] in Serum or Plasma [facility]) Alanine aminotransferase 13 IU/L ALT (SGPT) GREE NWAY ([facility] [Enzymatic [facility] activity/volume] in Serum [facility]) or Plasma Globulin [Mass/volume] in 3.1 g/dL Globulin, Tota l FERN ([facility] Serum by calculation [facility]) Urea nitrogen/Creatinine 11 BUN/Creatinine Ratio FERN ([facility] [Mass Ratio] in Serum or [facility] Plasma [facility]) Carbon dioxide, total 23 mmol/L Carbon Dioxide, GR EENWAY ([facility] [Moles/volume] in Serum Total [facility] or [facility]) Albumin/Globulin [Mass 1.5 A/G Ratio GREENWA Y ([place] Ratio] in Serum or Plasma [facility]) eGFR If NonAfricn Am 90 eGFR If NonAfricn A m FERN ([facility] mL/min/1.73 [facility]) eGFR If Africn Am 103 eGFR If Africn Am GREE NWAY ([facility] mL/min/1.73 [facility]) ID Date Data Source [id number] 06/28/2019 08:36:00 AM EDT [place] ([facility]) Name Value Range Interpretation Description Data Source(s ) Supporting Code Document(s ) aPTT in 32 sec aPTT [place] ([facility] Platelet poor [place] plasma by [facility] Coagulation [facility]) assay Note: This test has not been validated f or monitoring unfractionated heparintherapy. aPTT-based therapeutic ranges for unfrac tionated heparintherapy have not been established. For general guidelines onHe jenna monitoring, refer to the [facility] Directory of Services. ID Date Data Source [id number] 06/28/2019 08:36:00 AM EDT [place] ([facility]) Name Value Range Interpretation Description Data Source(s ) Supporting Code Document(s ) Hemoglobin 5.4 % Hemoglobin A1c V[place]IA (Moun t A1c/Hemoglobi [place] n.total in [facility] Blood [facility]) Note: Prediabetes: 5.7 - 6.4 Diabetes: >6.4 Glycemic control for adults with diabetes: <7.0 ID Date Data Source [id number] 06/28/2019 08:36:00 AM EDT FERN ([facility]) Name Value Range Interpretation Description Data Source(s ) Supporting Code Document(s ) INR in Platelet 1.0 INR FERN ([place] t poor plasma by [place] Coagulation [facility]) Note: Reference interval is for non-anticoagulated patients. Suggested INR therapeutic range for Vitamin K antagonist therapy: Standard Dose (moderate i ntensity therapeutic range): 2.0 - 3.0 Higher intensity therapeutic range 2.5 - 3.5 Prothrombin time (PT) 10.2 sec Prothrombin Time G REENWAY ([facility]) ID Date Data Source [id number] 06/28/2019 08:36:00 AM EDT FERN ([facility]) Name Value Range Interpretation Description Data Sup porting Code Source(s) Document(s ) Calcium 9.4 Calcium FERN [Mass/volume] in mg/dL ([facility]) Protein 7.7 Protein, FERN [Mass/volume] in g/dL Total ([facility]) Glucose 94 Glucose FERN [Mass/volume] in mg/dL ([facility]) Urea nitrogen 8 mg/dL BUN FERN [Mass/volume] in ([facility]) Albumin 4.5 Albumin FERN [Mass/volume] in g/dL ([facility]) Bilirubin.total <0.2 Bilirubin, FERN [Mass/volume] in mg/dL Total ([facility]) Aspartate 20 IU/L AST (SGOT) FERN aminotransferase ([place] [Enzymatic Neighborhood activity/volume] Health in Serum or [place]) Alkaline 92 IU/L Alkaline FERN phosphatase Phosphatase ([place] [Enzymatic Neighborhood activity/volume] Health in Serum or [place]) Sodium 138 Sodium FERN [Moles/volume] in mmol/L ([facility]) Potassium 4.0 Potassium FERN [Moles/volume] in mmol/L ([facility]) Chloride 100 Chloride FERN [Moles/volume] in mmol/L ([facility]) Alanine 20 IU/L ALT (SGPT) FERN aminotransferase ([place] [Enzymatic Neighborhood activity/volume] Health in Serum or Plasma Center) Creatinine 0.79 Creatinine FERN [Mass/volume] in mg/dL ([place] Serum or Plasma [facility]) Carbon dioxide, 23 Carbon FERN total mmol/L Dioxide, ([place] [Moles/volume] in Total [facility] Serum or [facility]) Globulin 3.2 Globulin, [place] [Mass/volume] in g/dL Total ([place] Serum by [facility]) Urea 10 BUN/Creatinin FERN nitrogen/Creatinin e Ratio ([facility] on e [Mass Ratio] in [facility] Serum or Plasma [facility]) Albumin/Globulin 1.4 A/G Ratio FERN [Mass Ratio] in ([place] Serum or Plasma [facility]) eGFR If Africn Am 114 eGFR If FERN mL/min/ Africn Am ([address]) eGFR If NonAfricn 99 eGFR If FERN Am mL/min/ NonAfricn Am ([address]) ID Date Data Source [id number] 05/25/2019 09:33:00 AM EDT FERN ([facility]) Name Value Range Interpretation Description Data Source(s ) Supporting Code Document(s ) Cholesterol 188 Cholesterol, FERN [Mass/volume] mg/dL Total ([place] in Serum or [facility] Plasma [facility]) Cholesterol in 2.3 LDL/HDL Ratio FERN LDL/Cholestero ratio ([place] l in HDL [Mass Neighborhood Ratio] in [facility]) Serum or Plasma Note: LDL/HDL Ratio Men Women 1/2 Avg.Risk 1.0 1.5 Avg.Risk 3.6 3.2 2X Avg.Risk 6.2 5.0 3X Avg.Risk 8.0 6.1 Cholesterol in HDL 53 mg/dL HDL Cholesterol [address] ([place] [Mass/volume] in [place] Serum or Plasma [facility]) Triglyceride 61 mg/dL Triglycerides FERN ([facility] [facility] [Mass/volume] in [place] Serum or Plasma [facility]) Laboratory comment N/A Comment: FERN (M ount [Text] in Report [facility]) Cholesterol in LDL 123 mg/dL Above high LDL Cholesterol Calc FERN ([place] [Mass/volume] in normal [place] Serum or Plasma by [facility]) Cholesterol in VLDL 12 mg/dL VLDL Cholesterol Jewel FERN ([facility] [Mass/volume] in [place] Serum or Plasma by [facility]) ID Date Data Source [id number] 05/25/2019 09:33:00 AM EDT FERN ([facility]) Name Value Range Interpretation Description Data Sup porting Code Source(s) Document(s ) Glucose 89 Glucose FERN [Mass/volume] in mg/dL ([facility] or [facility]) Calcium 9.4 Calcium FERN [Mass/volume] in mg/dL ([facility] or [facility]) Urea nitrogen 12 BUN FERN [Mass/volume] in mg/dL ([facility]) Albumin 4.4 Albumin FERN [Mass/volume] in g/dL ([facility]) Protein 7.5 Protein, FERN [Mass/volume] in g/dL Total ([facility]) Alkaline 90 IU/L Alkaline FERN phosphatase Phosphatase ([place] [Enzymatic Neighborhood activity/volume] [facility] in Serum or [place]) Bilirubin.total <0.2 Bilirubin, FERN [Mass/volume] in mg/dL Total ([facility] or [facility]) Potassium 4.4 Potassium FERN [Moles/volume] in mmol/L ([facility] or [facility]) Aspartate 29 IU/L AST (SGOT) FERN aminotransferase ([place] [Enzymatic Neighborhood activity/volume] [facility] in Serum or [place]) Sodium 139 Sodium FERN [Moles/volume] in mmol/L ([facility] or [facility]) Creatinine 0.72 Creatinine FERN [Mass/volume] in mg/dL ([facility]) Chloride 104 Chloride FERN [Moles/volume] in mmol/L ([facility]) Globulin 3.1 Globulin, FERN [Mass/volume] in g/dL Total ([place] Serum by [facility]) Urea 17 BUN/Creatinin FERN nitrogen/Creatinin e Ratio ([facility] on e [Mass Ratio] in ) Carbon dioxide, 24 Carbon FERN total mmol/L Dioxide, ([place] [Moles/volume] in Total [facility] Serum or [facility]) Alanine 24 IU/L ALT (SGPT) FERN aminotransferase ([place] [Enzymatic Neighborhood activity/volume] Health in Serum or Plasma Center) eGFR If Africn Am 127 eGFR If FERN mL/min/ Africn Am ([address]) Albumin/Globulin 1.4 A/G Ratio FERN [Mass Ratio] in ([place] Serum or [facility]) eGFR If NonAfricn 110 eGFR If FERN Am mL/min/ NonAfricn Am ([address]) ID Date Data Source [id number] 05/04/2019 02:58:00 PM EDT FERN ([facility]) Name Value Range Interpretation Description Data Source(s ) Supporting Code Document(s ) Ferritin 53 ng/mL Ferritin, FERN ([place] [Mass/volum Serum Nitesh e] in Serum [facility] or Plasma [facility]) ID Date Data Source [id number] 05/04/2019 02:58:00 PM EDT FERN ([facility]) Name Value Range Interpretation Description Data Source(s ) Supporting Code Document(s ) Hepatitis A Positive Abnormal Hep A Ab, FERN virus Ab (applies to Total (Pb [place] [Presence] in non-numeric [facility] Serum by results) Health Center) Immunoassay Hepatitis A Negative Hep A Ab, IgM FERN virus IgM Ab ([place] [Presence] in [facility] Serum or [facility] [place]) Plasma by Immunoassay ID Date Data Source [id number] 05/04/2019 02:58:00 PM EDT V[place] ([facility]) Name Value Range Interpretation Description Data Sup porting Code Source(s) Document(s ) Calcium 9.6 Calcium FERN [Mass/volume] in mg/dL ([place] Serum or Plasma [facility]) Protein 8.0 Protein, FERN [Mass/volume] in g/dL Total ([facility] or [facility]) Glucose 82 Glucose FERN [Mass/volume] in mg/dL ([facility] or [facility]) Urea nitrogen 13 BUN FERN [Mass/volume] in mg/dL ([facility] or [facility]) Alkaline 92 IU/L Alkaline FERN phosphatase Phosphatase ([place] [Enzymatic Neighborhood activity/volume] Health in Serum or [place]) Bilirubin.total <0.2 Bilirubin, FERN [Mass/volume] in mg/dL Total ([facility] or [facility]) Albumin 4.5 Albumin FERN [Mass/volume] in g/dL ([facility]) Aspartate 22 IU/L AST (SGOT) FERN aminotransferase ([place] [Enzymatic [facility] activity/volume] [facility] in Serum or [facility]) Potassium 4.5 Potassium FERN [Moles/volume] in mmol/L ([facility] or [facility]) Creatinine 0.87 Creatinine FERN [Mass/volume] in mg/dL ([facility]) Alanine 37 IU/L Above high ALT (SGPT) [place] aminotransferase normal ([place] [Enzymatic [facility] activity/volume] [facility] in Serum or [place]) Chloride 101 Chloride FERN [Moles/volume] in mmol/L ([facility]) Sodium 137 Sodium FERN [Moles/volume] in mmol/L ([facility]) eGFR If NonAfricn 88 eGFR If FERN Am mL/min/ NonAfricn Am ([address]) Carbon dioxide, 21 Carbon FERN total mmol/L Dioxide, ([place] [Moles/volume] in Total ) Globulin 3.5 Globulin, FERN [Mass/volume] in g/dL Total ([place] Serum by [facility]) Urea 15 BUN/Creatinin FERN nitrogen/Creatinin e Ratio ([facility] on e [Mass Ratio] in ) Albumin/Globulin 1.3 A/G Ratio FERN [Mass Ratio] in ([place] Serum or [facility]) eGFR If Africn Am 101 eGFR If FERN mL/min/ Africn Am ([address]) Procedure Social History Code Duration Value Status Description Data Source(s ) Smoking 04/10/2020 Former Smoker completed Former Smoker eCW3 ([place] [place] 12:00:00 AM [facility] Hi [facility]) Smoking 07/06/2019 Former Smoker completed Former Smoker eCW3 ([facility] [place] 12:00:00 AM [facility] Hi re) Smoking 07/05/2019 Occasional completed Occasional FERN (Moun t 01:29:46 PM EDT tobacco smoker tobacco smoker V ernon (finding) ([facility]) [facility]) Smoking 06/21/2019 Occasional completed Occasional FERN (Moun t 10:14:48 AM EDT tobacco smoker tobacco smoker V ernon (finding) ([facility]) [facility]) Smoking 05/04/2019 Occasional completed Occasional FERN (Moun t 01:31:33 PM EDT tobacco smoker tobacco smoker V ernon (finding) ([facility]) [facility]) Smoking 04/27/2019 Denies Ever completed Denies Ever [place] 09:21:00 PM EDT Smoked Smoked Medical C enter Smoking 04/27/2019 Denies Ever completed Denies Ever [place] 08:43:00 PM EDT Smoked Smoked Medical C enter Smoking 04/27/2019 Denies Ever completed Denies Ever [place] 08:29:00 PM EDT Smoked Smoked Medical C enter Vital Signs ID Date Data Source UNK Name Value Range Interpretation Code Description Data Source(s) Body mass index 37.5 kg/m2 37.5 kg/m2 [place] ([facility] (BMI) [Ratio] [facility]) P follow ups labs Body weight 243 [lb_av] 243 [lb_av] FERN ([facility]) P follow ups labs Body height 67.5 [in_us] 67.5 [in_us] FERN ([facility]) P follow ups labs Body temperature 98.3 [degF] 98.3 [degF] GREENW ([facility]) P follow ups labs Heart rate 79 /min 79 /min [facility] ups labs Diastolic blood pressure 70 mm[Hg] 70 mm[Hg] FERN ([facility]) P follow ups labs Systolic blood pressure 102 mm[Hg] 102 mm[Hg] G REENWAY ([facility]) P follow ups labs PhenX - pain, abdominal - type and 0 0 FERN ([facility]) P follow ups labs Body surface area Derived from 2.21 m2 2.21 m2 FERN ([facility]) P follow ups labs Body mass index (BMI) 37.3 kg/m2 37.3 kg/m2 [facility] ([place] [[facility]] [facility]) Pt presents today for follow up results Body weight 242 [lb_av] 242 [lb_av] FERN ([facility]) Pt presents today for follow up results Body height 67.5 [in_us] 67.5 [in_us] FERN ([facility]) Pt presents today for follow up results Body temperature 98.1 [degF] 98.1 [degF] GREENW AY ([facility]) Pt presents today for follow up results Heart rate 90 /min 90 /min FERN ([facility]) Pt presents today for follow up results Diastolic blood pressure 70 mm[Hg] 70 mm[Hg] VENED[place]IA ([facility]) Pt presents today for follow up results Systolic blood pressure 104 mm[Hg] 104 mm[Hg] G REENWAY ([facility]) Pt presents today for follow up results PhenX - pain, abdominal - type and 0 0 FERN ([facility]) Pt presents today for follow up results Body surface area Derived from 2.20 m2 2.20 m2 V[place]ED[place]IA ([facility]) Pt presents today for follow up results Body mass index (BMI) 38.0 kg/m2 38.0 kg/m2 [facility] ([place] [[facility]] [facility]) Pt has a burning sensation when s he ur inates Body weight 246 [lb_av] 246 [lb_av] FERN ([facility]) Pt has a burning sensation when s he ur inates Body height 67.5 [in_us] 67.5 [in_us] FERN ([facility]) Pt has a burning sensation when s he ur inates Body temperature 98.3 [degF] 98.3 [degF] GREENW AY ([facility]) Pt has a burning sensation when s he ur inates Heart rate 96 /min 96 /min FERN ([facility]) Pt has a burning sensation when s he ur inates Diastolic blood pressure 76 mm[Hg] 76 mm[Hg] FERN ([facility]) Pt has a burning sensation when s he ur inates Systolic blood pressure 117 mm[Hg] 117 mm[Hg] G REENWAY ([facility]) Pt has a burning sensation when s he ur inates PhenX - pain, abdominal - type and 8 8 FERN ([facility]) Pt has a burning sensation when s he ur inates Body surface area Derived from 2.22 m2 2.22 m2 FERN ([facility]) Pt has a burning sensation when s he ur inates Body mass index (BMI) 38.9 kg/m2 38.9 kg/m2 GRE ENWAY ([place] [Ratio] [facility]) pt is here for lab results Body weight 252 [lb_av] 252 [lb_av] VENED[place]IA ([facility]) pt is here for lab results Body height 67.5 [in_us] 67.5 [in_us] V[place]ED[place]IA ([facility]) pt is here for lab results Body temperature 98.1 [degF] 98.1 [degF] [facility] ([facility]) pt is here for lab results Respiratory rate 18 /min 18 /min V[place]ED[place]IA ([facility]) pt is here for lab results Heart rate 102 /min 102 /min V[place] ([facility]) pt is here for lab results Diastolic blood pressure 70 mm[Hg] 70 mm[Hg] V[place]ED[place]IA ([facility]) pt is here for lab results Systolic blood pressure 102 mm[Hg] 102 mm[Hg] [facility] ([facility]) pt is here for lab results PhenX - pain, abdominal - type and 0 0 FERN ([facility]) pt is here for lab results Body surface area Derived from 2.24 m2 2.24 m2 VENED[place]IA ([facility]) pt is here for lab results Body weight 254 [lb_av] 254 [lb_av] V[place]ED[place]IA ([facility]) pt requesting ppd for job-- no form to b e completed. -- C/O spots on body- Body height 67.5 [in_us] 67.5 [in_us] V[place]EDOCIA ([facility]) pt requesting ppd for job-- no form to b e completed. -- C/O spots on body- Body temperature 98.3 [degF] 98.3 [degF] KIMANIW AY ([facility]) pt requesting ppd for job-- no form to b e completed. -- C/O spots on body- Heart rate rhythm 1 1 GREENWA Y ([facility]) pt requesting ppd for job-- no form to b e completed. -- C/O spots on body- Heart rate 87 /min 87 /min V[place]ED[place]IA ([facility]) pt requesting ppd for job-- no form to b e completed. -- C/O spots on body- Diastolic blood pressure 74 mm[Hg] 74 mm[Hg] VENED[place]IA ([facility]) pt requesting ppd for job-- no form to b e completed. -- C/O spots on body- Systolic blood pressure 94 mm[Hg] 94 mm[Hg] G REENSIMON ([facility]) pt requesting ppd for job-- no form to b e completed. -- C/O spots on body- PhenX - pain, abdominal - type and 0 0 VENEDOCIA ([facility]) pt requesting ppd for job-- no form to b e completed. -- C/O spots on body- Body surface area Derived from 2.25 m2 2.25 m2 V[place]ED[place]IA ([facility]) pt requesting ppd for job-- no form to b e completed. -- C/O spots on body- Body mass index (BMI) 39.2 kg/m2 39.2 kg/m2 [facility] [facility]] [facility] pt requesting ppd for job-- no form to b e completed. -- C/O spots on body- Body weight 245 [lb_av] 245 [lb_av] [place] ([facility]) Pt presents today for labs results Pt c/ o on and off pain behind right ear for 3 months Body height 67.5 [in_us] 67.5 [in_us] VENEDOCIA ([facility]) Pt presents today for labs results Pt c/ o on and off pain behind right ear for 3 months Body temperature 98.3 [degF] 98.3 [degF] GREENW AY ([facility]) Pt presents today for labs results Pt c/ o on and off pain behind right ear for 3 months Heart rate 105 /min 105 /min FERN ([facility]) Pt presents today for labs results Pt c/ o on and off pain behind right ear for 3 months Diastolic blood pressure 79 mm[Hg] 79 mm[Hg] FERN ([facility]) Pt presents today for labs results Pt c/ o on and off pain behind right ear for 3 months Systolic blood pressure 117 mm[Hg] 117 mm[Hg] G REENWAY ([facility]) Pt presents today for labs results Pt c/ o on and off pain behind right ear for 3 months PhenX - pain, abdominal - type and 0 0 FERN ([facility]) Pt presents today for labs results Pt c/ o on and off pain behind right ear for 3 months Body surface area Derived from 2.22 m2 2.22 m2 FERN ([facility]) Pt presents today for labs results Pt c/ o on and off pain behind right ear for 3 months Body mass index (BMI) 37.8 kg/m2 37.8 kg/m2 [facility] [place] ([place] [[facility]] [facility]) Pt presents today for labs results Pt c/ o on and off pain behind right ear for 3 months Body weight 246 [lb_av] 246 [lb_av] FERN ([facility]) Pt presents today for medication review, blood test and transportation form Body height 67.5 [in_us] 67.5 [in_us] FERN ([facility]) Pt presents today for medication review, blood test and transportation form Body temperature 98 [degF] 98 [degF] FERN ([facility]) Pt presents today for medication review, blood test and transportation form Heart rate 99 /min 99 /min FERN ([facility]) Pt presents today for medication review, blood test and transportation form Diastolic blood pressure 79 mm[Hg] 79 mm[Hg] FERN ([facility]) Pt presents today for medication review, blood test and transportation form Systolic blood pressure 119 mm[Hg] 119 mm[Hg] G REENWAY ([facility]) Pt presents today for medication review, blood test and transportation form PhenX - pain, abdominal - type and 0 0 V[place]ED[place]IA ([facility]) Pt presents today for medication review, blood test and transportation form Body surface area Derived from 2.22 m2 2.22 m2 [place] ([facility]) Pt presents today for medication review, blood test and transportation form Body mass index (BMI) 38.0 kg/m2 38.0 kg/m2 [address] ([place] [[facility]] [facility]) Pt presents today for medication review, blood test and transportation form Diastolic blood 74 mm[Hg] 74 mm[Hg] eCW3 ([facility]) Systolic blood pressure 118 mm[Hg] 118 mm[Hg] e CW3 ([facility]) Body weight 148.375 [lb_av] 148.375 [lb_av] [facility] ([facility]) Pt presenting for lab review and Rx refi ll. Body height 67.5 [in_us] 67.5 [in_us] V[place]IA ([facility]) Pt presenting for lab review and Rx refi ll. Body temperature 99.4 [degF] 99.4 [degF] [facility] AY ([facility]) Pt presenting for lab review and Rx refi ll. Heart rate rhythm 1 1 Y ([facility]) Pt presenting for lab review and Rx refi ll. Heart rate 89 /min 89 /min V[place]ED[place]IA ([facility]) Pt presenting for lab review and Rx refi ll. Diastolic blood pressure 76 mm[Hg] 76 mm[Hg] [place] ([facility]) Pt presenting for lab review and Rx refi ll. Systolic blood pressure 108 mm[Hg] 108 mm[Hg] [facility] ([facility]) Pt presenting for lab review and Rx refi ll. Oxygen saturation in Arterial blood 99 % 99 % V[place]ED[place]IA ([facility] by Pulse oximetry [facility]) Pt presenting for lab review and Rx refi ll. PhenX - pain, abdominal - type and 0 0 FERN ([facility]) Pt presenting for lab review and Rx refi ll. Body surface area Derived from 1.79 m2 1.79 m2 V[place] ([facility]) Pt presenting for lab review and Rx refi ll. Body mass index (BMI) 22.9 kg/m2 22.9 kg/m2 [facility] ([place] [Ratio] [facility]) Pt presenting for lab review and Rx refi ll. Body weight 248.26907 [lb_av] 248.79195 [lb_av] V[place]IA ([facility]) Patient is here for blood results and wa nt to do blood work. Body height 67.5 [in_us] 67.5 [in_us] [place]IA ([facility]) Patient is here for blood results and wa nt to do blood work. Body temperature 97.3 [degF] 97.3 [degF] [facility] AY ([facility]) Patient is here for blood results and wa nt to do blood work. Heart rate rhythm 1 1 [facility] Y ([facility]) Patient is here for blood results and wa nt to do blood work. Heart rate 94 /min 94 /min V[place]ED[place]IA ([facility]) Patient is here for blood results and wa nt to do blood work. Diastolic blood pressure 74 mm[Hg] 74 mm[Hg] [place] ([facility]) Patient is here for blood results and wa nt to do blood work. Systolic blood pressure 108 mm[Hg] 108 mm[Hg] [facility] Patient is here for blood results and wa nt to do blood work. Body surface area Derived from 2.23 m2 2.23 m2 V[place] ([facility]) Patient is here for blood results and wa nt to do blood work. Body mass index (BMI) 38.3 kg/m2 38.3 kg/m2 [facility] ([place] [[facility]] [facility]) Patient is here for blood results and wa nt to do blood work. PhenX - pain, abdominal - type and 0 0 V[place]ED[place]IA ([facility]) Patient is here for blood results and wa nt to do blood work. Body weight 251.6 [lb_av] 251.6 [lb_av] KIMANIWA Y ([facility]) pt is here fr Rx refill and also she hav e been experiencing some pain for about 1wk in the neck area below the right ear. Body height 67.5 [in_us] 67.5 [in_us] VENED[place]IA ([facility]) pt is here fr Rx refill and also she hav e been experiencing some pain for about 1wk in the neck area below the right ear. Body temperature 98.8 [degF] 98.8 [degF] [facility] ([facility]) pt is here fr Rx refill and also she hav e been experiencing some pain for about 1wk in the neck area below the right ear. Respiratory rate 18 /min 18 /min VENED[place]IA ([facility]) pt is here fr Rx refill and also she hav e been experiencing some pain for about 1wk in the neck area below the right ear. Heart rate 82 /min 82 /min V[place]ED[place]IA ([facility]) pt is here fr Rx refill and also she hav e been experiencing some pain for about 1wk in the neck area below the right ear. Diastolic blood pressure 70 mm[Hg] 70 mm[Hg] V[place]ED[place]IA ([facility]) pt is here fr Rx refill and also she hav e been experiencing some pain for about 1wk in the neck area below the right ear. Systolic blood pressure 103 mm[Hg] 103 mm[Hg] G REENWAY ([facility]) pt is here fr Rx refill and also she hav e been experiencing some pain for about 1wk in the neck area below the right ear. PhenX - pain, abdominal - type and 6 6 VENED[place]IA ([facility] protocol [facility]) pt is here fr Rx refill and also she hav e been experiencing some pain for about 1wk in the neck area below the right ear. Body surface area Derived from 2.24 m2 2.24 m2 VENED[place]IA ([facility]) pt is here fr Rx refill and also she hav e been experiencing some pain for about 1wk in the neck area below the right ear. Body mass index (BMI) 38.8 kg/m2 38.8 kg/m2 [facility] ([place] [Ratio] [facility]) pt is here fr Rx refill and also she hav e been experiencing some pain for about 1wk in the neck area below the right ear. Body temperature 36.608287 Luisa [id number] Luisa [facility] Respiratory rate 17 /min 17 /min [facility] Oxygen saturation in Arterial 100 % 100 % [facility] blood by Pulse oximetry C enter Heart rate 77 /min 77 /min [facility] Diastolic blood pressure 71 mm[Hg] 71 mm[Hg] [facility] Systolic blood pressure 119 mm[Hg] 119 mm[Hg] S [facility] Body weight Measured 127.906356 kg 127.656153 k g [facility] Body temperature 36.085499 Luisa [id number] Luisa [facility] Respiratory rate 17 /min 17 /min [facility] Oxygen saturation in Arterial 100 % 100 % [facility] blood by Pulse oximetry C enter Heart rate 95 /min 95 /min [facility] Diastolic blood pressure 95 mm[Hg] 95 mm[Hg] [facility] Systolic blood pressure 125 mm[Hg] 125 mm[Hg] [facility] Patient Treatment Plan of Care Planned Activity Planned Date Details Description Data Source (s) Clonazepam 0.5 MG Oral 03/11/[address] ([place] Tablet 12:00:00 AM [facility]) Clonazepam 0.5 MG Oral 02/12/[address] ([place] Tablet 12:00:00 AM [facility]) Bactrim DS 800-160MG 02/04/2020 GREENWA Y ([place] Oral Tablet 12:00:00 AM [facility]) Macrobid 100MG Oral 01/30/2020 FERN ([place] Capsule 12:00:00 AM [facility]) Ascorbic Acid 500 MG 01/30/2020 GREENWA Y ([place] Oral Tablet 12:00:00 AM [facility]) ferrous sulfate 325 MG 01/16/[address] ([place] Oral Tablet 12:00:00 AM [facility]) Clonazepam 0.5 MG Oral 01/15/[address] ([place] Tablet 12:00:00 AM [facility]) Amitriptyline 01/15/2020 FERN ([facility] t Nitesh Hydrochloride 25 MG Oral 12:00:00 AM [facility]) Clonazepam 0.5 MG Oral 11/27/[address] ([place] Tablet 12:00:00 AM [facility]) ferrous sulfate 325 MG 10/30/[address] ([place] Oral Tablet 12:00:00 AM [facility]) Clonazepam 0.5 MG Oral 10/30/[address] ([place] Tablet 12:00:00 AM [facility]) Clonazepam 0.5 MG Oral 09/18/[address] ([place] Tablet 12:00:00 AM [facility]) Amitriptyline 09/18/2019 FERN ([facility] Nitesh Hydrochloride 25 MG Oral 12:00:00 AM [facility]) Clonazepam 0.5 MG Oral 08/21/[address] ([place] Tablet 12:00:00 AM [facility]) Penicillin V Potassium 07/06/2019 eCW3 ([place] 500 MG Oral Tablet 12:00:00 AM [facility]) ferrous sulfate 325 MG 07/05/[address] ([place] Oral Tablet 12:00:00 AM [facility]) Eliquis 5MG Oral Tablet 07/05/[address] ([place] 12:00:00 AM [facility]) Ascorbic Acid 500 MG 07/05/2019 [place]EN[place] Y ([place] Oral Tablet 12:00:00 AM [facility]) Amitriptyline 06/21/2019 FERN ([facility] t Nitesh Hydrochloride 25 MG Oral 12:00:00 AM [facility] [place] Clonazepam 0.5 MG Oral 06/21/[address] ([place] Tablet 12:00:00 AM [facility]) Ibuprofen 600 MG Oral 05/04/2019 [address] ([place] Tablet 12:00:00 AM [facility]) Eliquis 5MG Oral Tablet 05/04/2019 [address] ([place] 12:00:00 AM [facility]) Clonazepam 0.5 MG Oral 05/01/[address] ([place] Tablet 12:00:00 AM [facility]) Clonazepam 0.5 MG Oral 04/10/[address] ([place] Tablet 12:00:00 AM [facility]) Amitriptyline 03/27/2019 FERN ([place] Hydrochloride 25 MG Oral 12:00:00 AM [facility] - [place]) ferrous sulfate 325 MG 01/12/[address] ([place] Oral Tablet 12:00:00 AM [facility]) Eliquis 5MG Oral Tablet 12/29/2018 SHANTANUE JUAN J ([place] 12:00:00 AM [facility]) Ascorbic Acid 500 MG 08/04/2018 RAMONA Y ([place] Oral Tablet 12:00:00 AM [facility])
[2020-06-14 23:14] LABS: EPI CELLS >36 /uL (0-25.1); HCG,QUALITATIVE URINE Negative; HYALINE CASTS 1 /uL (0-3.1); PH,URINE 6.5 (5.0-8.0); URINE APPEARANCE CLOUDY; URINE BACTERIA 1172 /uL (0-1359); URINE BILIRUBIN NEGATIVE (NEGATIVE); URINE COLOR YELLOW; URINE GLUCOSE (UA) NEGATIVE (NEGATIVE); URINE KETONE NEGATIVE (NEGATIVE); URINE LEUK ESTERASE NEGATIVE (NEGATIVE); URINE NITRITE NEGATIVE (NEGATIVE); URINE PROTEIN NEGATIVE (NEGATIVE); URINE RBC 8 /uL (0-23.9); URINE UROBILINOGEN 0.2 mg/dL (0.2-1.0); URINE WBC 22 /uL (0-25.8)
[2020-06-14 23:14] LABS: BASO % 0.3 % (0-2.0); EOS % 0.8 % (0-4.5); HEMATOCRIT 34.3 % (32.4-45.2); HEMOGLOBIN 11.6 GM/dL (10.7-15.3); LYMPH % 30.2 % (8-40); MCH 31.5 pg (25.7-33.7); MCHC 33.7 g/dl (32.0-36.0); MEAN CELL VOLUME 93.4 fl (80-96); MEAN PLT VOLUME 9.1 fl (7.5-11.1); MONO % 7.8 % (3.8-10.2); NEUT % 60.9 % (42.8-82.8); PLATELET COUNT 219 K/MM3 (134-434); RBC 3.67 M/mm3 (3.60-5.2); RDW 12.7 % (11.6-15.6)
[2020-06-14 23:38] LABS: ALBUMIN 3.7 g/dl (3.4-5.0); ALK PHOS 80 U/L (45-117); ANION GAP 6 MMOL/L (8-16); BILIRUBIN,TOTAL 0.2 mg/dL (0.2-1); BLOOD UREA NITROGEN 9.1 mg/dL (7-18); CALCIUM 9.1 mg/dL (8.5-10.1); CHLORIDE 104 mmol/L (98-107); CO2 27 mmol/L (21-32); CREATININE 0.8 mg/dL (0.55-1.3); GLUCOSE,RANDOM 82 mg/dL (74-106); POTASSIUM 3.9 mmol/L (3.5-5.1); SGOT/AST 16 U/L (15-37); SGPT/ALT 25 U/L (13-61); SODIUM 137 mmol/L (136-145); TOT PROT 7.6 g/dl (6.4-8.2)
--- NOTE | 2020-06-15 21:48 | EKG ---
Test Reason : Blood Pressure : / mmHG Vent. Rate : 075 BPM Atrial Rate : 075 BPM P-R Int : 166 ms QRS Dur : 088 ms QT Int : 370 ms P-R-T Axes : 029 019 025 degrees QTc Int : 413 ms NORMAL SINUS RHYTHM NORMAL ECG WHEN COMPARED WITH ECG OF 28-JUL-2019 04:13, NO SIGNIFICANT CHANGE WAS FOUND Confirmed by Alma Sandoval ([id number]) on 06/15/2020 9:47:53 PM Referred By: Confirmed By:Alma Sandoval
== END 2020-06-15 00:08 | disposition home or self-care (01) ==
LOC: JER 21:12
DX: R42 Dizziness and giddiness (principal)
CPT/HCPCS: 36415; 80053; 81003; 82550; 84484; 84703; 85025; 93005; 93010; 99284-25

== ENCOUNTER 2020-08-08 13:30 | Emergency (ER) | payer OTHER ==
[2020-08-08 13:43] VITALS: BP 106/73; PULSE 84; TEMP 98.1; BMI 37.7
[2020-08-08 14:27] LABS: BASO % 0.7 % (0-2.0); HEMATOCRIT 37.1 % (32.4-45.2); HEMOGLOBIN 12.4 GM/dL (10.7-15.3); LYMPH % 28.3 % (8-40); MCH 31.3 pg (25.7-33.7); MCHC 33.4 g/dl (32.0-36.0); MEAN CELL VOLUME 93.7 fl (80-96); MEAN PLT VOLUME 8.9 fl (7.5-11.1); MONO % 7.4 % (3.8-10.2); NEUT % 62.6 % (42.8-82.8); PLATELET COUNT 245 K/MM3 (134-434); RBC 3.96 M/mm3 (3.60-5.2); RDW 12.8 % (11.6-15.6); WHITE BLOOD COUNT 4.5 K/mm3 (4.0-10.0)
[2020-08-08 14:52] LABS: POTASSIUM 3.7 mmol/L (3.5-5.1)
[2020-08-08 14:55] LABS: ALBUMIN 3.7 g/dl (3.4-5.0)
[2020-08-08 14:58] LABS: CREATININE 0.9 mg/dL (0.55-1.3)
[2020-08-08 14:59] LABS: BILIRUBIN,TOTAL 0.3 mg/dL (0.2-1); TOT PROT 7.7 g/dl (6.4-8.2)
[2020-08-08] MEDS ORDERED: MAG HYDROX/AL HYDROX/SIMETH -MYLANTA- ORAL SUSPENSION PO ONE (15:07)
[2020-08-08] MEDS ORDERED: ONDANSETRON 4 MG/2 ML VIAL IVPUSH ONE (15:07)
[2020-08-08] MEDS ORDERED: ONDANSETRON 4 MG/2 ML VIAL ONE (15:10)
[2020-08-08] MEDS ORDERED: MAG HYDROX/AL HYDROX/SIMETH 30 ML UNIT-DOSE CUP ONE (15:10)
== END 2020-08-08 15:51 | disposition home or self-care (01) ==
LOC: JER 13:30
PROC: 3E033NZ Introduction of Analgesics, Hypnotics, Sedatives into Peripheral Vein, Percutaneous Approach (ICD-10-PCS; principal; 2020-08-08)
DX: R42 Dizziness and giddiness (principal); R11.0 Nausea
CPT/HCPCS: 36415; 80053; 84703; 85025; 93005; 93010; 99285-25; C9803; U0003

== ENCOUNTER 2020-08-26 01:17 | Emergency (ER) | payer OTHER ==
[2020-08-26 01:41] VITALS: BP 120/68; PULSE 90; TEMP 98.2; BMI 38.0
== END 2020-08-26 02:52 | disposition home or self-care (01) ==
LOC: JER 01:17
DX: M25.561 Pain in right knee (principal)
CPT/HCPCS: 93971-TC; 99283-25

== ENCOUNTER 2020-09-26 21:13 | Emergency (ER) | payer OTHER ==
[2020-09-26 21:19] VITALS: BP 108/76; PULSE 100; TEMP 98.5; BMI 38.0
== END 2020-09-27 00:11 | disposition home or self-care (01) ==
LOC: JER 21:13
DX: F41.9 Anxiety disorder, unspecified (principal); R11.0 Nausea
CPT/HCPCS: 93005; 93010; 99284-25; C9803; U0003

== ENCOUNTER 2020-12-18 16:06 | Emergency (ER) | payer OTHER ==
[2020-12-18 16:26] VITALS: TEMP 98.4; BMI 38.0
[2020-12-18 18:00] LABS: BASO % 0.5 % (0-2.0); EOS % 0.3 % (0-4.5); HEMATOCRIT 37.3 % (32.4-45.2); HEMOGLOBIN 12.7 GM/dL (10.7-15.3); LYMPH % 39.3 % (8-40); MCH 31.8 pg (25.7-33.7); MEAN CELL VOLUME 93.4 fl (80-96); MEAN PLT VOLUME 9.7 fl (7.5-11.1); MONO % 7.6 % (3.8-10.2); NEUT % 52.3 % (42.8-82.8); PLATELET COUNT 236 K/MM3 (134-434); RBC 3.99 M/mm3 (3.60-5.2); RDW 12.6 % (11.6-15.6); WHITE BLOOD COUNT 5.7 K/mm3 (4.0-10.0)
[2020-12-18] MEDS ORDERED: DEXAMETHASONE SOD PHOSPHATE 10 MG/1 ML VIAL IVPUSH ONE (18:01)
[2020-12-18 18:06] LABS: EPI CELLS 23 /uL (0-25.1); HYALINE CASTS 0 /uL (0-3.1); URINE APPEARANCE CLOUDY; URINE BACTERIA 590 /uL (0-1359); URINE BILIRUBIN NEGATIVE (NEGATIVE); URINE COLOR ORANGE; URINE GLUCOSE (UA) NEGATIVE (NEGATIVE); URINE KETONE NEGATIVE (NEGATIVE); URINE LEUK ESTERASE TRACE (NEGATIVE); URINE NITRITE NEGATIVE (NEGATIVE); URINE PROTEIN 1+ (NEGATIVE); URINE RBC 26 /uL (0-23.9); URINE UROBILINOGEN 0.2 mg/dL (0.2-1.0); URINE WBC 42 /uL (0-25.8)
[2020-12-18 18:08] LABS: INR 1.05 (0.83-1.09); PROTHROMBIN TIME (PATIENT) 12.7 SEC (9.7-13.0)
[2020-12-18 18:09] LABS: HCG,QUALITATIVE URINE Negative
[2020-12-18 18:11] LABS: ACTIVATED PTT 32.7 SECONDS (25.2-36.5)
[2020-12-18 18:21] LABS: CALCIUM 9.2 mg/dL (8.5-10.1)
[2020-12-18 18:22] LABS: ALBUMIN 4.3 g/dl (3.4-5.0); BLOOD UREA NITROGEN 10.8 mg/dL (7-18)
[2020-12-18 18:25] LABS: CREATININE 0.9 mg/dL (0.55-1.3)
[2020-12-18 18:27] VITALS: BP 117/79; PULSE 80
[2020-12-18 18:27] LABS: BILIRUBIN,TOTAL 0.4 mg/dL (0.2-1); TOT PROT 8.3 g/dl (6.4-8.2)
== END 2020-12-18 21:28 | disposition home or self-care (01) ==
LOC: JER 16:06
PROC: 3E033NZ Introduction of Analgesics, Hypnotics, Sedatives into Peripheral Vein, Percutaneous Approach (ICD-10-PCS; principal; 2020-12-18)
DX: N93.9 Abnormal uterine and vaginal bleeding, unspecified (principal)
CPT/HCPCS: 36415; 76830-TC; 80053; 81003; 84703; 85025; 85610; 85730; 86850; 86900; 86901; 99284-25

== ENCOUNTER 2021-09-09 16:45 | Emergency (ER) | payer OTHER ==
[2021-09-09 17:17] VITALS: BP 106/77; PULSE 95; TEMP 98.1; BMI 38.0
== END 2021-09-09 18:35 | disposition home or self-care (01) ==
LOC: JERFT 16:45 → JER 16:45 → JERFT 18:35
DX: R20.8 Other disturbances of skin sensation (principal)
CPT/HCPCS: 99281-25

== ENCOUNTER 2022-01-30 18:38 | Emergency (ER) | payer OTHER ==
[2022-01-30 18:50] VITALS: BP 109/75; PULSE 97; TEMP 98.2; BMI 40.3
[2022-01-30 20:28] LABS: HEMATOCRIT 37.8 % (32.4-45.2); HEMOGLOBIN 13.1 GM/dL (10.7-15.3); MCH 31.5 pg (25.7-33.7); MCHC 34.7 g/dl (32.0-36.0); MEAN CELL VOLUME 90.8 fl (80-96); MEAN PLT VOLUME 8.8 fl (7.5-11.1); PLATELET COUNT 162 10^3/uL (134-434); RBC 4.17 M/mm3 (3.60-5.2); RDW 12.6 % (11.6-15.6)
[2022-01-30 20:33] LABS: EPI CELLS >36 /uL (0-25.1); HYALINE CASTS 0 /uL (0-3.1); URINE APPEARANCE CLOUDY; URINE BACTERIA 1069 /uL (0-1359); URINE BILIRUBIN NEGATIVE (NEGATIVE); URINE COLOR YELLOW; URINE GLUCOSE (UA) NEGATIVE (NEGATIVE); URINE KETONE NEGATIVE (NEGATIVE); URINE LEUK ESTERASE NEGATIVE (NEGATIVE); URINE NITRITE NEGATIVE (NEGATIVE); URINE PROTEIN TRACE (NEGATIVE); URINE RBC 33 /uL (0-23.9); URINE UROBILINOGEN 0.2 mg/dL (0.2-1.0); URINE WBC 18 /uL (0-25.8)
[2022-01-30 20:48] LABS: CALCIUM 8.8 mg/dL (8.5-10.1)
[2022-01-30 20:49] LABS: ALBUMIN 3.7 g/dl (3.4-5.0); BLOOD UREA NITROGEN 10.3 mg/dL (7-18)
[2022-01-30 20:52] LABS: CREATININE 0.9 mg/dL (0.55-1.3)
[2022-01-30 20:53] LABS: TOT PROT 8.2 g/dl (6.4-8.2)
[2022-01-30 20:54] LABS: BILIRUBIN,TOTAL 0.2 mg/dL (0.2-1)
[2022-01-30 20:58] LABS: ANISOCYTOSIS 1+; MACROCYTOSIS 0
== END 2022-01-30 21:23 | disposition home or self-care (01) ==
LOC: JER 18:38
DX: D72.818 Other decreased white blood cell count (principal)
CPT/HCPCS: 36415; 80053; 81003; 83690; 84443; 84703; 85025; 87086; 87186; 99283-25

== ENCOUNTER 2022-05-20 13:15 | Emergency (ER) | payer OTHER ==
[2022-05-20 13:24] VITALS: BP 111/71; PULSE 77; RESP 18; TEMP 97.9; BMI 39.5
[2022-05-20] MEDS ORDERED: LORazepam 0.5 MG TABLET PO ONE (14:29)
[2022-05-20] MEDS ORDERED: LORazepam 0.5 MG TABLET ONE (14:35)
== END 2022-05-20 15:00 | disposition home or self-care (01) ==
LOC: JERFT 13:15
DX: F41.9 Anxiety disorder, unspecified (principal)
CPT/HCPCS: 93005; 93010; 99283-25

== ENCOUNTER 2022-10-03 09:45 | Emergency (ER) | payer OTHER ==
[2022-10-03 09:54] VITALS: BP 114/74; PULSE 76; RESP 18; TEMP 97.6; BMI 38.1
== END 2022-10-03 11:00 | disposition left against medical advice (07) ==
LOC: JER 09:45
DX: F41.9 Anxiety disorder, unspecified (principal)
CPT/HCPCS: 99281-25

== ENCOUNTER 2022-11-04 21:09 | Emergency (ER) | payer OTHER ==
[2022-11-04 21:21] VITALS: BP 124/76; PULSE 94; RESP 18; TEMP 98.2; BMI 38.9
[2022-11-04] MEDS ORDERED: SODIUM CHLORIDE 1,000 ML IV STA (22:11)
[2022-11-04 22:40] LABS: BASO % 0.2 % (0-2.0); EOS % 0.3 % (0-4.5); HEMATOCRIT 34.1 % (32.4-45.2); HEMOGLOBIN 11.4 GM/dL (10.7-15.3); LYMPH % 26.1 % (8-40); MCH 30.4 pg (25.7-33.7); MCHC 33.6 g/dl (32.0-36.0); MEAN CELL VOLUME 90.7 fl (80-96); MEAN PLT VOLUME 8.2 fl (7.5-11.1); MONO % 6.8 % (3.8-10.2); NEUT % 66.6 % (42.8-82.8); PLATELET COUNT 252 10^3/uL (134-434); RBC 3.76 M/mm3 (3.60-5.2); RDW 12.5 % (11.6-15.6); WHITE BLOOD COUNT 7.4 K/mm3 (4.0-10.0)
[2022-11-04 23:09] LABS: ALBUMIN 3.7 g/dl (3.4-5.0); BLOOD UREA NITROGEN 7.9 mg/dL (7-18)
[2022-11-04 23:13] LABS: CREATININE 0.8 mg/dL (0.55-1.3)
[2022-11-04 23:14] LABS: BILIRUBIN,TOTAL 0.3 mg/dL (0.2-1); TOT PROT 7.5 g/dl (6.4-8.2)
[2022-11-04 23:44] LABS: EPI CELLS 23 /uL (0-25.1); HYALINE CASTS 0 /uL (0-3.1); URINE APPEARANCE CLEAR; URINE BACTERIA 281 /uL (0-1359); URINE BILIRUBIN NEGATIVE (NEGATIVE); URINE COLOR YELLOW; URINE GLUCOSE (UA) NEGATIVE (NEGATIVE); URINE KETONE NEGATIVE (NEGATIVE); URINE LEUK ESTERASE TRACE (NEGATIVE); URINE NITRITE NEGATIVE (NEGATIVE); URINE PROTEIN NEGATIVE (NEGATIVE); URINE RBC 11 /uL (0-23.9); URINE UROBILINOGEN 0.2 mg/dL (0.2-1.0); URINE WBC 15 /uL (0-25.8)
== END 2022-11-05 00:43 | disposition home or self-care (01) ==
LOC: JER 21:09
PROC: 3E0337Z Introduction of Electrolytic and Water Balance Substance into Peripheral Vein, Percutaneous Approach (ICD-10-PCS; principal; 2022-11-04)
DX: E86.0 Dehydration (principal); F41.9 Anxiety disorder, unspecified
CPT/HCPCS: 36415; 80053; 81003; 82962; 84443; 84703; 85025; 87086; 99284-25

== ENCOUNTER 2023-04-18 10:23 | Emergency (ER) | payer OTHER ==
[2023-04-18 10:49] VITALS: TEMP 98.1; BMI 38.0
[2023-04-18] MEDS ORDERED: FAMOTIDINE 20 MG TABLET PO ONE (12:25)
[2023-04-18] MEDS ORDERED: MAG HYDROX/AL HYDROX/SIMETH 30 ML UNIT-DOSE CUP PO ONE (12:26)
[2023-04-18] MEDS ORDERED: FAMOTIDINE 20 MG TABLET ONE (12:48)
[2023-04-18] MEDS ORDERED: MAG HYDROX/AL HYDROX/SIMETH 30 ML UNIT-DOSE CUP ONE (12:48)
[2023-04-18 13:32] LABS: BASO % 0.3 % (0-2.0); EOS % 0.5 % (0-4.5); HEMATOCRIT 38.2 % (32.4-45.2); HEMOGLOBIN 12.9 GM/dL (10.7-15.3); LYMPH % 26.2 % (8-40); MCHC 33.7 g/dl (32.0-36.0); MEAN CELL VOLUME 91.9 fl (80-96); MEAN PLT VOLUME 8.5 fl (7.5-11.1); MONO % 5.9 % (3.8-10.2); NEUT % 67.1 % (42.8-82.8); PLATELET COUNT 256 10^3/uL (134-434); RBC 4.16 M/mm3 (3.60-5.2); RDW 12.9 % (11.6-15.6); WHITE BLOOD COUNT 5.5 K/mm3 (4.0-10.0)
[2023-04-18 13:34] LABS: CHLORIDE 105 mmol/L (98-107); POTASSIUM 4.3 mmol/L (3.5-5.1); SODIUM 139 mmol/L (136-145)
[2023-04-18 13:35] LABS: ALBUMIN 3.4 g/dl (3.4-5.0)
[2023-04-18 13:36] LABS: ANION GAP 2 MMOL/L (8-16); BLOOD UREA NITROGEN 9.3 mg/dL (7-18); CALCIUM 9.2 mg/dL (8.5-10.1); CO2 32 mmol/L (21-32)
[2023-04-18 13:37] LABS: GLUCOSE,RANDOM 88 mg/dL (74-106)
[2023-04-18 13:39] LABS: CREATININE 0.8 mg/dL (0.55-1.3)
[2023-04-18 13:40] LABS: SGOT/AST 17 U/L (15-37); SGPT/ALT 31 U/L (13-61)
[2023-04-18 13:41] LABS: BILIRUBIN,TOTAL 0.3 mg/dL (0.2-1); TOT PROT 8.2 g/dl (6.4-8.2)
[2023-04-18 13:42] LABS: ALK PHOS 86 U/L (45-117)
[2023-04-18] MEDS ORDERED: PANTOPRAZOLE SODIUM 40 MG VIAL IVPUSH ONE (16:47)
[2023-04-18] MEDS ORDERED: PANTOPRAZOLE SODIUM 40 MG VIAL ONE (17:02)
[2023-04-18 18:21] VITALS: BP 106/56; PULSE 92; RESP 20
== END 2023-04-18 17:50 | disposition home or self-care (01) ==
LOC: JER 10:23
PROC: 3E033NZ Introduction of Analgesics, Hypnotics, Sedatives into Peripheral Vein, Percutaneous Approach (ICD-10-PCS; principal; 2023-04-18)
DX: R12 Heartburn (principal); R10.13 Epigastric pain
CPT/HCPCS: 36415; 71046-TC-FY; 71275-TC; 80053; 82550; 84484; 84703; 85025; 85379; 93005; 93010; 99285-25; Q9967

== ENCOUNTER 2024-06-18 12:40 | Emergency (ER) | payer OTHER ==
[2024-06-18 13:01] VITALS: BP 100/86; PULSE 91; RESP 18; TEMP 98; BMI 34.7
== END 2024-06-18 14:32 | disposition home or self-care (01) ==
LOC: JER 12:40
DX: R94.31 Abnormal electrocardiogram [ECG] [EKG] (principal); F41.9 Anxiety disorder, unspecified; R42 Dizziness and giddiness
CPT/HCPCS: 93005; 93010; 99284-25